=== PATIENT | female | born 1975 | race Caucasian/White ===

== ENCOUNTER 2017-01-13 10:03 | Emergency (ER) | payer MEDICAID, OTHER ==
[~2017-01-13] VITALS: Wt 50.0 kg
[2017-01-13] MEDS ORDERED: ONDANSETRON (ODT) 4 MG TAB ODT STA (10:21)
[2017-01-13] MEDS ORDERED: IBUPROFEN 600 MG TAB PO ONE (10:30)
[2017-01-13] MEDS ORDERED: ACETAMINOPHEN 325 MG TAB PO ONE (10:30)
--- NOTE | 2017-01-13 10:56 | ERD ---
ER Documentation Chief Complaint Date/Time DATE: 01/13/17 TIME: 10:29 Chief Complaint FEVER X 4 DAYS HPI 41-year-old Welsh-speaking female presents to emergency department with 2 day history of fever, chills, nausea, vomiting. Patient reports that she vomited 2 times yesterday, and 2 times this morning. Reports she is able to eat and drink without deficit but in smaller amounts. Patient denies diarrhea but reports loose stool. Denies cough, nasal congestion, runny nose, sore throat, or abdominal pain. Patient states she has taken Tylenol for symptomatic relief 2 days ago with little relief of symptoms. Patient is brought in by family member who is available for translation. Hospital staff production maintenance mechanic also provided. ROS All systems reviewed and are negative except as per history of present illness. Medications Home Meds Active Scripts Acetaminophen* (Tylenol*) 325 Mg Tablet, 2 TAB PO Q6 Y for PAIN AND OR ELEVATED TEMP, #20 TAB Prov:EDILBERTO,ROSA 01/13/17 Ondansetron (Ondansetron Odt) 4 Mg Tab.rapdis, 4 MG PO Q6H Y for NAUSEA AND/OR VOMITING, #10 TAB Prov:EDILBERTO,ROSA 01/13/17 Allergies Allergies: Coded Allergies: ibuprofen (Verified Allergy, Intermediate, rash, 01/13/17) Physical Exam Vitals Vital Signs Date Time Temp Pulse Resp B/P Pulse Ox O2 Delivery O2 Flow Rate FiO2 01/13/17 14:19 97.9 98 18 92/50 100 Room Air 01/13/17 10:05 104.0 119 18 101/51 99 Vitals stable, triage notes reviewed, temperature 104 Tylenol and Motrin provided Physical Exam Const: Well-appearing, afebrile, no acute distress Head: Atraumatic Eyes: Normal Conjunctiva, PERRLA, EOMI ENT: Tympanic membranes pink, nonbulging, auditory canals are clear, nasal mucosa dry, pharynx pink, tongue midline, uvula midline no shift, rises and falls with pronation Neck: Full range of motion..~ No meningismus. No cervical chain node Resp: Clear to auscultation bilaterally, diminished bases Cardio: Regular rate and rhythm, no murmurs Abd: Soft, non tender, non distended. No Sommer sign, psoas sign, no McBurney's point tenderness Skin: No petechiae or rashes Back: Ext: Neur: Awake and alert Psych: Normal Mood and Affect Result Diagram: 01/13/17 1100 01/13/17 1300 Results 24 hrs Laboratory Tests Test 01/13/17 11:00 01/13/17 11:33 01/13/17 13:00 White Blood Count 30.610^3/ul Red Blood Count 4.3310^6/ul Hemoglobin 12.0g/dl Hematocrit 34.8% Mean Corpuscular Volume 80.4fl Mean Corpuscular Hemoglobin 27.7pg Mean Corpuscular Hemoglobin Concent 34.5g/dl Red Cell Distribution Width 14.0% Platelet Count 40122^3/UL Mean Platelet Volume 9.9fl Neutrophils % 88.9% Lymphocytes % 2.6% Monocytes % 4.9% Eosinophils % 0.0% Basophils % 0.4% Nucleated Red Blood Cells % 0.0/100WBC Neutrophils # 27.210^3/ul Lymphocytes # 0.810^3/ul Monocytes # 1.510^3/ul Eosinophils # 0.010^3/ul Basophils # 0.110^3/ul Nucleated Red Blood Cells # 0.010^3/ul Bedside Urine pH (LAB) 5.0 Bedside Urine Protein (LAB) 3+ Bedside Urine Glucose (UA) 0.50% Bedside Urine Ketones (LAB) Negative Bedside Urine Blood 3+ Bedside Urine Nitrite (LAB) Negative Bedside Urine Leukocyte Esterase (L Negative Prothrombin Time 16.6Sec Prothrombin Time Ratio 1.3 INR International Normalized Ratio 1.33 Activated Partial Thromboplast Time 40.5Sec Sodium Level 135mmol/L Potassium Level 2.8mmol/L Chloride Level 100mmol/L Carbon Dioxide Level 20mmol/L Anion Gap 18 Blood Urea Nitrogen 12mg/dl Creatinine 0.92mg/dl Glucose Level 185mg/dl Lactic Acid Level 1.2mmol/L Calcium Level 8.7mg/dl Total Bilirubin 0.7mg/dl Direct Bilirubin 0.00mg/dl Indirect Bilirubin 0.7mg/dl Aspartate Amino Transf (AST/SGOT) 96IU/L Alanine Aminotransferase (ALT/SGPT) 100IU/L Alkaline Phosphatase 183IU/L Total Protein 8.3g/dl Albumin 4.5g/dl Globulin 3.80g/dl Albumin/Globulin Ratio 1.18 Lipase 57U/L Current Medications Medications (Trade) Dose Ordered Sig/Ally Route PRN Reason Start Time Stop Time Status Last Admin Dose Admin Ondansetron HCl (Zofran Odt) 4 mg ONCE STAT ODT 01/13/17 10:21 01/13/17 10:23 DC 01/13/17 10:34 Acetaminophen (Tylenol Tab) 650 mg ONCE ONCE PO 01/13/17 10:30 01/13/17 10:31 DC 01/13/17 10:34 Ibuprofen 600 mg 600 mg ONCE ONCE PO 01/13/17 10:30 01/13/17 11:38 DC Sodium Chloride (NS) 1,000 ml @ 1,000 mls/hr Q1H ONCE IV 01/13/17 11:00 01/13/17 11:59 DC 01/13/17 11:45 Potassium Chloride 40 meq 40 meq ONCE STAT PO 01/13/17 13:40 01/13/17 13:46 DC 01/13/17 13:55 Sodium Chloride (NS) 1,000 ml @ 1,000 mls/hr Q1H ONCE IV 01/13/17 14:00 01/13/17 14:59 DC 01/13/17 13:57 Interpretation text CBC shows leukocytosis without a left shift. Anemia Chemistry shows no evidence renal insufficiency, hypokalemia noted at 2.8. This will be treated with 40 any cues of K-Dur Liver function tests shows no evidence of acute biliary or hepatic dysfunction, although ALT and AST is mildly elevated Coagulation study showed no concerning coagulpathy Lipase shows no evidence of acute pancreatitis- Lactic acid 1.2 this is a non-acute level. Sepsis is not suspected second lactate will not be drawn Urinalysis shows hematuria without leukocytosis or nitrates. Proteinuria positive which is not an v suspected finding based on symptoms and hematuria. Procedures/MDM PROCEDURE: XR Chest. CLINICAL INDICATION: Fever TECHNIQUE: PA and lateral views of the chest were obtained COMPARISON: None FINDINGS: The heart and mediastinum are within normal limits. The pulmonary vasculature are unremarkable. The aorta is unremarkable. There is no lung consolidation, pleural effusion or pneumothorax. There is no acute osseous abnormality. IMPRESSION: No acute disease. Electronically viewed and signed by .Jakob Chong MD, MD on 01/13/2017 11:34 This pleasant 41-year-old female brought into emergency department by her friend for fever 2 days, chills, nausea vomiting and loose stools. Patient has temperature of 104, Tylenol, Motrin given. Sepsis considered, treatment includes 2000 mL normal saline. Fever control, laboratory testing including lactic acid and blood cultures. WBC is elevated at 30.6, lactic acid 1.2. These findings do not support sepsis. Pneumonia considered without physical exam findings a chest x-ray is obtained with findings that the heart and mediastinum are within normal limits. Pulmonary vasculature are unremarkable. The aorta is unremarkable. There is no lung consolidation, pleural effusion, or pneumothorax. There is no acute osseous abnormality. This is a normal chest x-ray. Patient's abdomen is nondiagnostic on exam, abnormal ALT, AST, pancreatitis, cholecystitis, appendicitis, considered but unlikely without typical signs such as epigastric and right upper quadrant tenderness, patient reports nausea, vomiting with frequent loose stools for the last 2 days, viral illness, dehydration considered, chemistry abnormal with potassium of 2.8 possibly related to f fluid loss secondary to vomiting and loose stooling. Patient treated with Zofran, Tylenol for fever of 100.4. Patient was reassessed after interventions reports improvement of symptoms. Patient is afebrile at 98.8. Plan to discharge patient with Zofran, diet restrictions, clear liquids advance as tolerated, incorporate potassium rich foods including bananas. [place] juice if not nauseated. Gatorade. Fever reduction with Tylenol every 6 hours as needed. Close follow-up with primary care physician in 48 hours or return to emergency department for worsening including fever not responding to treatment. Vomiting, diarrhea continuing with treatment. Dizziness, abdominal pain, dysuria, hematuria, or blood in stool. I feel the patient is stable for discharge at this time with close outpatient follow-up and strict return to emergency department precautions. I have discussed results, examination findings, the treatment plan with the patient and family present prior to discharge. Indications for emergent reevaluation, side effects of medication were also discussed. All questions were answered. Patient verbalizes understanding and agrees with plan of care. Case discussed with supervising physician Dr. Jes Alex Diagnosis: Primary Impression: Leukocytosis, unspecified Additional Impressions: Fever chills Influenza-like symptoms Condition: Good Patient Instructions: Fever Control (Adult), Nausea and Vomiting-Adult, Self- Care for Vomiting and Diarrhea [facility] Additional Instructions: Thank you for for coming to [facility] for your care today. Please ask your nurse or provider if you have questions about your care today and do not leave until all your questions have been answered. Please use any medications given as directed and follow-up with your doctor (or the doctor you were referred to) in the next 2-3 days. If you do not have a primary care doctor you may follow up at the [facility] (listed below). You may also use motrin and tylenol as needed for fever and/or pain unless instructed otherwise by your provider or nurse. Indications for more urgent follow-up have been discussed, but you may return to the Emergency Department at ANY time for any worrisome or worsening symptoms. If you have abdominal pain, please know that no test or exam you received is perfect and you should follow up within 8 hours for continued pain. If you had any imaging studies today, such as an X-Ray or CT Scan, these studies will be reviewed later by a radiologist. You will be called if there are important findings that were not identified today, so make sure the contact information you provided at registration is correct. If you received any narcotic pain control medicine today, such as Vicodin, Morphine or Dilaudid, your coordination and judgment may be affected for a number of hours. Please do not drive or operate heavy machinery, and you may want someone to assist you at home. If you were given a prescription for narcotic medication, be aware that it is very addictive- use sparingly and only if necessary. ROSA CASANOVA Jan 13, 2017 10:39
[2017-01-13] MEDS ORDERED: SOD CHLORIDE 0.9% 1,000 ML IV ONE ×2 (11:00→14:00)
[2017-01-13 11:19] LABS: ADD SCAN DIFF NO
[2017-01-13 11:22] LABS: ABNORMAL IP MESSAGE 1; BASOPHIL # 0.1 10^3/ul (0.0-0.1); BASOPHILS % 0.4 % (0.0-2.0); HEMATOCRIT 34.8 % (37.0-47.0); LYMPHOCYTES # 0.8 10^3/ul (0.8-2.9); LYMPHOCYTES % 2.6 % (15.0-51.0); MEAN CORPUSCULAR HEMOGLOBIN 27.7 pg (29.0-33.0); MEAN CORPUSCULAR HGB CONC 34.5 g/dl (32.0-37.0); MEAN CORPUSCULAR VOLUME 80.4 fl (82.0-101.0); MEAN PLATELET VOLUME 9.9 fl (7.4-10.4); MONOCYTE # 1.5 10^3/ul (0.3-0.9); MONOCYTES % 4.9 % (0.0-11.0); NEUTROPHIL # 27.2 10^3/ul (1.6-7.5); NEUTROPHILS % 88.9 % (39.0-77.0); PLATELET COUNT 269 10^3/UL (140-415); RED BLOOD COUNT 4.33 10^6/ul (4.20-5.40); WHITE BLOOD COUNT 30.6 10^3/ul (4.8-10.8)
[2017-01-13 11:30] LABS: URINE BLOOD (Dip) POC 3+ (NEGATIVE)
--- NOTE | 2017-01-13 11:34 | RADRPT ---
PROCEDURE: XR Chest. CLINICAL INDICATION: Fever TECHNIQUE: PA and lateral views of the chest were obtained COMPARISON: None FINDINGS: The heart and mediastinum are within normal limits. The pulmonary vasculature are unremarkable. The aorta is unremarkable. There is no lung consolidation, pleural effusion or pneumothorax. There is no acute osseous abnormality. IMPRESSION: No acute disease. RPTAT: AA .Jakob Chong MD, Date Time Electronically viewed and signed by .Jakob Chong MD, MD on 01/13/2017 11:34 .J/
[2017-01-13 13:21] LABS: INR 1.33; PARTIAL THROMBOPLASTIN TIME 40.5 Sec (25.0-35.0); PROTIME 16.6 Sec (12.2-14.2); PT RATIO 1.3
[2017-01-13 13:22] LABS: ALBUMIN 4.5 g/dl (3.3-4.9); ALBUMIN/GLOBULIN RATIO 1.18; BILIRUBIN,INDIRECT 0.7 mg/dl (0-1.1); BILIRUBIN,TOTAL 0.7 mg/dl (0.2-1.3); CALCIUM 8.7 mg/dl (8.4-10.2); CREATININE 0.92 mg/dl (0.44-1.00); TOTAL PROTEIN 8.3 g/dl (6.1-8.1)
[2017-01-13 13:27] LABS: POTASSIUM 2.8 mmol/L (3.5-5.1)
[2017-01-13] MEDS ORDERED: POTASSIUM CHLORIDE (SR) 20 MEQ TAB PO STA (13:40)
--- NOTE | 2017-01-13 14:07 | QN ---
Documentation Comment I have seen and evaluated the patient along with the PA and/or FORGING MACHINE OPERATOR provider. I agree with the evaluation and plan of care. Please see their documentation for full ER course and evaluation. In short: A 41-year-old female presents with several days of nausea and vomiting, myalgias and generalized malaise with lightheadedness. She states that occasional loose stools but no significant abdominal pain. No chest pain or shortness of breath no cough no dysuria urgency or frequency. No recent travel or sick contacts or antibiotics. On exam: General: Well developed, well nourished, no acute distress Head: Normocephalic, atraumatic Eyes: Pupils equally reactive, EOM intact ENT: Moist mucous membranes Neck: Supple, no lymphadenopathy Respiratory: Lungs clear bilaterally, no distress Cardiovascular: RRR, no murmurs, rubs, or gallops Abdominal: Soft, non-tender, non-distended, no peritoneal signs : Deferred MSK: No edema, no unilateral swelling, 5/5 strength Neurologic: Alert and oriented, moving all extremities, normal speech, no focal weakness, no cerebellar signs, no meningismus Skin: No rash Psych: Normal mood Assessment and plan: The patient's laboratory testing is somewhat concerning with a significant leukocytosis of 30. However, she has a normal lactic acid. She has had some vomiting and her potassium is slightly low and will be orally repleted. She is nonspecific transaminitis. Despite the patient's leukocytosis she is extremely well-appearing, she feels much better after antipyretics and fluids. Her lactic acid is normal. She has a benign abdominal exam. She has no signs or symptoms concerning for intracranial process, pneumonia, UTI, intra-abdominal process. She has no evidence of hepatobiliary obstruction, acute cholecystitis. I believe that her symptoms are most likely consistent with viral process. Even with the patient' s significant leukocytosis she is extremely well-appearing and motivated to go home. She does not have a primary care physician therefore I did strongly recommend that she follows up in the emergency room for repeat evaluation in 1- 2 days. Blood cultures have been sent but again very low clinical concern for bacteremia or sepsis. She has no focal source and likely viral process. The patient has been observed in the emergency room for a period of time during which she has improved symptomatology and normalization of her vital signs. The patient understands strict return precautions but I do believe she is safe for discharge. KARINA CERNA MD Jan 13, 2017 14:07
[2017-01-13 14:19] VITALS: BP 92/50; PULSE 98; RESP 18; TEMP 97.9
[2017-01-13] MEDS ORDERED: ONDA4TAB14 PO (14:37)
[2017-01-13] MEDS ORDERED: ACET325T33 PO (14:38)
== END 2017-01-13 15:14 | disposition home or self-care (01) ==
LOC: FTE 10:03
DX: D72.829 Elevated white blood cell count, unspecified (principal); R11.2 Nausea with vomiting, unspecified
CPT/HCPCS: 71020; 80053; 81003; 83605; 83690; 85025; 85610; 85730; 87040; J7030; Z7610; 36415; 96360; 96361

== ENCOUNTER 2017-01-16 20:59 | Inpatient (IN) | payer MEDICAID ==
[~2017-01-16] VITALS: Ht 152.4 cm; Wt 58.9 kg
[~2017-01-16 20:59] MED LIST: ACET325T33 PO; ONDA4TAB14 PO
[2017-01-16] MEDS ORDERED: ACETAMINOPHEN 325 MG TAB PO STA (21:44)
[2017-01-16] MEDS ORDERED: SODIUM CHLORIDE 0.9% 1L BAG IV* STA (21:44)
[2017-01-16 22:34] LABS: ADD SCAN DIFF NO
[2017-01-16 22:38] LABS: ABNORMAL IP MESSAGE 1; HEMATOCRIT 32.7 % (37.0-47.0); HEMOGLOBIN 11.3 g/dl (12.0-16.0); MEAN CORPUSCULAR HEMOGLOBIN 27.5 pg (29.0-33.0); MEAN CORPUSCULAR HGB CONC 34.6 g/dl (32.0-37.0); MEAN CORPUSCULAR VOLUME 79.6 fl (82.0-101.0); MEAN PLATELET VOLUME 11.4 fl (7.4-10.4); PLATELET COUNT 103 10^3/UL (140-415); RED BLOOD COUNT 4.11 10^6/ul (4.20-5.40); RED CELL DISTRIBUTION WIDTH 15.8 % (11.5-14.5); WHITE BLOOD COUNT 6.1 10^3/ul (4.8-10.8)
[2017-01-16 22:57] LABS: LYMPHOCYTES # 0.7 10^3/ul (0.8-2.9); MONOCYTE # 0.2 10^3/ul (0.3-0.9); NEUTROPHIL # 4.9 10^3/ul (1.6-7.5)
[2017-01-16 23:00] LABS: INR 1.16; PROTIME 14.8 Sec (12.2-14.2); PT RATIO 1.2
[2017-01-16 23:01] LABS: PARTIAL THROMBOPLASTIN TIME 40.1 Sec (25.0-35.0)
[2017-01-16 23:02] LABS: ALANINE AMINOTRANSFERASE 100 IU/L (13-69); ALBUMIN 3.5 g/dl (3.3-4.9); ALBUMIN/GLOBULIN RATIO 1.09; ALKALINE PHOSPHATASE 359 IU/L (42-121); ANION GAP 19 (8-16); ASPARTATE AMINO TRANSFERASE 128 IU/L (15-46); BILIRUBIN,INDIRECT 0.4 mg/dl (0-1.1); BILIRUBIN,TOTAL 0.4 mg/dl (0.2-1.3); BLOOD UREA NITROGEN 25 mg/dl (7-20); CALCIUM 8.2 mg/dl (8.4-10.2); CARBON DIOXIDE 16 mmol/L (21-31); CHLORIDE 104 mmol/L (97-110); CREATININE 1.11 mg/dl (0.44-1.00); GLUCOSE 125 mg/dl (70-220); SODIUM 136 mmol/L (135-144); TOTAL PROTEIN 6.7 g/dl (6.1-8.1)
[2017-01-16] MEDS ORDERED: CEFEPIME 2GM/50 ML (PMX) 50 ML IVPB STA (23:08)
[2017-01-16 23:17] LABS: TROPONIN-I < 0.012 ng/ml (0.00-0.12)
[2017-01-16] MEDS ORDERED: VANCOMYCIN 1 GM (PMX) 250 ML IVPB ONE (23:30)
--- NOTE | 2017-01-16 23:39 | RADRPT ---
PROCEDURE: XR Chest. CLINICAL INDICATION: Chest pain. Possible sepsis TECHNIQUE: Portable AP upright view of the chest was obtained. COMPARISON: 01/13/2017 FINDINGS: The cardiomediastinal silhouette is within normal limits. The lungs are clear. There is no evidenc e for pleural effusion, pneumothorax or pulmonary vascular congestion. The osseous structures are i ntact with no evidence for acute abnormality. RPTAT:HJJR IMPRESSION: No evidence for acute intrathoracic pathology or interval change from 01/13/2017 allowing for techni rishabh differences. Physician Maci Date Time Electronically viewed and signed by Physician Maci on 01/16/2017 23:38 JR/
[2017-01-17] VITALS (21 sets, daily range): BP systolic 90–122; BP diastolic 54–88; PULSE 94–113; RESP 18–42; TEMP 97; Ht 152.4 cm; Wt 58.9 kg
[2017-01-17] MEDS ORDERED: NACL 0.9% 3 ML SYG IV SCH (00:30)
[2017-01-17] MEDS ORDERED: POTASSIUM CHLORIDE 250 ML IVPB ONE (00:30)
[2017-01-17] MEDS ORDERED: VANCOMYCIN IV PER PHARMACY XX SCH (00:30)
[2017-01-17] MEDS: NS + KCL 20 MEQ 1,000 ML IV SCH ×4 (00:53→21:47)
[2017-01-17] MEDS: PIPER-TAZO 3.375 GM IV (PMX) 100 ML IVPB SCH ×5 (00:54→23:31)
--- NOTE | 2017-01-17 01:00 | RADRPT ---
PROCEDURE: US right upper quadrant CLINICAL INDICATION: Abdominal pain. Abnormal laboratory values. TECHNIQUE: Multiple real-time images were acquired of the patient's right upper abdomen utilizing a high resolution transducer. COMPARISON: None available FINDINGS: Liver: Irregularly marginated centrally anechoic and peripherally hyperechoic lesion within the rig ht hepatic lobe is estimated at 3.3 x 4.1 x 3.3 cm. There is no evidence of solid mass or ductal di latation. Normal directional blood flow seen within the patent main portal vein. The liver is norm al in size. The maximum dimension estimated at 19.2 cm . Gallbladder: Anechoic with no evidence of gallstones or sludge. There is no evidence of gallbladder wall thickening or pericholecystic fluid. No sonographic Sommer's sign is reported. Common bile duct: Normal; 4.2 mm. There is no evidence for choledocholithiasis. Right Kidney: Normal; maximum length measured at approximately 10.1 cm. Pancreas: Visualized portions are normal. The tail is partially obscured by bowel gas. RPTAT:HJJR IMPRESSION: 1. Irregularly marginated centrally anechoic lesion within the right hepatic lobe measuring 4.1 cm in greatest dimension raises concern for a complex cyst or possibly an intrahepatic abscess in the formerly [facility] clinical setting. Follow-up evaluation is recommended. 2. No evidence of cholelithiasis. Physician Maci Date Time Electronically viewed and signed by Physician Maci on 01/17/2017 00:59 /
--- NOTE | 2017-01-17 01:32 | HP ---
DATE OF ADMISSION: 01/16/2017 TIME: 11:15 p.m. CHIEF COMPLAINT: Weakness, shortness of breath. HISTORY OF PRESENT ILLNESS: The patient is a 41-year-old female with no significant medical history . The patient presents with 1 week of worsening weakness, fevers, chills. The patient presented to the ED 3 days ago, where she was diagnosed with a viral syndrome. Blood cultures were taken. The patient was told follow up in the ER in a few days if she continued to feel poorly. The patient ind eed did follow up, and patient's blood cultures also showed alpha-hemolytic strep. The patient denie s any cellulitis throughout her body. She denies any dysuria or urinary frequency. She denies any productive cough. The patient does state that she does have some mild abdominal pain. She does hav e some nausea with occasional emesis. The patient denies any significant diarrhea. She says on occ asion she has some loose stool but nothing significant. The patient has never had these symptoms be fore in the past, and she has been otherwise healthy. In the ED, the patient's lactic acid was note d to be elevated at 8.1. She was tachycardic, and her BP was on lower side. The patient denied any chest pain, denied any headaches, and her main issue was her weakness with nausea, vomiting and fev ers and chills. PAST MEDICAL HISTORY: Negative. PAST SURGICAL HISTORY: Negative. HOME MEDICATIONS: None. ALLERGIES: IBUPROFEN. FAMILY HISTORY: Negative. SOCIAL HISTORY: Denies any alcohol, tobacco or drugs. She is currently a student in school. REVIEW OF SYSTEMS: A 12-point review of systems is negative except as in HPI. PHYSICAL EXAMINATION: VITAL SIGNS: Temperature is currently 102.6, T-max 104.7. Heart rate is 133, respiratory rate is 2 6, BP is 93/56, saturation 96% on room air. GENERAL: Mild distress. Alert, oriented. HEENT: Normocephalic, atraumatic. CHEST: Clear to auscultation. CARDIOVASCULAR: Tachycardic. ABDOMEN: Mild tenderness to palpation, nondistended, soft. EXTREMITIES: No clubbing, cyanosis, edema. LABORATORY: White count is 6.1, a few days ago was 30.6. Hemoglobin is 11.3, hematocrit is 32.7, p latelets 103. Chemistry: Sodium is 136, potassium is 3.0, carbon dioxide 16, anion gap is 19, BUN 25, creatinine is 1.11, glucose 125. Lactic acid 8.1. LFTs are elevated with AST 128, ALT is 100, alkaline phosphatase 359. Troponin is negative. Lipase a few days ago was 57. INR is 1.16. UA a few days ago was negative for leukocyte esterase, negative for nitrites. DIAGNOSTICS: Chest x-ray shows evidence for acute intrathoracic pathology. ASSESSMENT AND PLAN: 1. Septic shock. The patient does meet criteria for both sepsis and shock. The patient's blood pr essure is on lower side. Central line will be placed in the ED, and the patient will be transferred to ICU ____ sepsis secondary to alpha-hemolytic strep. Source is unclear at this time. The patien t has no cellulitis, no signs of pneumonia but does admit having sinus symptoms for the past week. Of note, the patient's white count was elevated at 30.6 only a few days ago and now has normalized, concerning for bone marrow suppression. Her lactic acid is severely elevated. The patient does denton ear to be critically ill at this time. Of note, she has no medical history. Will check a C. diff. Will do a CT abdomen and pelvis to identify a possible source of infection and to evaluate for C. d iff. Will put the patient on broad-spectrum antibiotics at this time. Will get an ID consultation as well as a pulmonology consultation. 2. Acute kidney injury secondary to septic shock. Will treat with IV fluids. Will get nephrology consultation. 3. Hypokalemia. Will replete. 4. Transaminitis. Source is unclear at this time. Will check a hepatitis panel, get a CT abdomen and pelvis. The patient may have possible cholangitis and will evaluate with ultrasound of the abdo men as well. No etiologies for this degree of sepsis, could be severe gangrenous cholecystitis. On ce again, will evaluate with ultrasound of the abdomen. 5. Thrombocytopenia. Is mild, likely secondary to disseminated intravascular coagulation. 6. Anion gap metabolic acidosis secondary to lactic acidosis from septic shock. 7. Prophylaxis: SCDs. Dictated By: ZAYRA WATT MD BS/NTS Conf#: [id number] DID#: [id number]
--- NOTE | 2017-01-17 02:25 | RADRPT ---
PROCEDURE: CT of the abdomen and pelvis without contrast CLINICAL INDICATION: Cholangitis/cholecystitis. TECHNIQUE: Spiral CT images through the abdomen and pelvis without the use of contrast. The admin istered radiation dose is CTDI 7.1 and DLP 400.59. One or more of the following dose reduction tech niques were used: automated exposure control, adjustment of the mA and/or kV according to patient si ze, or use of iterative reconstruction technique. COMPARISON: None FINDINGS: Lack of oral and intravenous contrast somewhat limits evaluation. Bibasilar atelectasis is seen. Small pleural effusions. Moderately large hiatal hernia.. Evaluation of the liver is limited without intravenous contrast there are at least 2 large heterogen eous low attenuation areas within the posterior segment of the right lobe of the liver. The larger measures 7.4 x 8.9 cm and the smaller measures approximately 4.5 x 5.8 cm. These are suspicious for hepatic abscesses given the history of cholecystitis. The gallbladder is contracted but there may be slight gallbladder wall thickening. No biliary or pancreatic ductal dilatation is seen. Noncont rast images of the spleen, adrenals, kidneys, and pancreas is unremarkable. . There is no evidence for bowel obstruction, free air, or abscess. The appendix is normal in appearance. There is colon ic diverticulosis without evidence of diverticulitis. The bladder, uterus, and adnexal regions are u nremarkable. There is a small of free fluid in the pelvis. There is mild degenerative change of t he spine. IMPRESSION: At least 2 probable large hepatic abscesses given the clinical history. Repeat study with intravenou s contrast would be helpful in better defining the abnormalities. The CT appearance is not specific for abscess and metastatic disease or other neoplastic etiology is not excluded. Small amount of free fluid in the pelvis. Hiatal hernia. RPTAT: HLBE Physician Ami Date Time Electronically viewed and signed by Physician Ami on 01/17/2017 02:25 CANDICE/
[2017-01-17 02:43] LABS: URINE BLOOD (Dip) POC 3+ (NEGATIVE)
[2017-01-17 03:17] LABS: ADD UMIC YES
[2017-01-17 03:19] LABS: UR CLARITY CLOUDY (CLEAR); UR COLOR YELLOW (YELLOW)
[2017-01-17 03:20] LABS: UR BILIRUBIN (Dip) 1+ (NEGATIVE); UR BLOOD (Dip) 3+ (NEGATIVE); UR GLUCOSE (Dip) NEGATIVE (NEGATIVE); UR KETONES (Dip) NEGATIVE (NEGATIVE); UR LEUKOCYTE ESTERASE (Dip) NEGATIVE (NEGATIVE); UR NITRITE (Dip) NEGATIVE (NEGATIVE); UR TOTAL PROTEIN (Dip) 1+ (NEGATIVE); UR UROBILINOGEN (Dip) 0.2 E.U./dL (0.1-1.0)
[2017-01-17 03:21] LABS: ICTOTEST NEGATIVE (NEGATIVE)
[2017-01-17 03:25] LABS: UR AMORPHOUS CRYSTAL FEW /HPF (NONE SEEN); UR BACTERIA FEW /HPF (NONE SEEN); UR SQUAMOUS EPITHELIAL CELL OCCASIONAL /HPF (FEW); URINE RBCS 0-2 /HPF (0)
[2017-01-17] MEDS: ONDANSETRON 4 MG INJ IV PRN ×2 (04:26→14:39)
[2017-01-17] MEDS: morphine 2 MG INJ IV PRN (04:26)
[2017-01-17] MEDS ORDERED: SOD CHLORIDE 0.9% 1,000 ML IV ONE ×3 (05:00→18:30)
[2017-01-17] MEDS: PANTOPRAZOLE 40 MG INJ IV SCH (05:16)
[2017-01-17] MEDS: morphine 4 MG/ML VIAL IV PRN ×3 (05:17→20:23)
[2017-01-17 06:19] LABS: ADD SCAN DIFF NO; HAAIG REFLEX REFLEX FILED
[2017-01-17 06:28] LABS: ABNORMAL IP MESSAGE 1; HEMATOCRIT 25.4 % (37.0-47.0); HEMOGLOBIN 8.6 g/dl (12.0-16.0); MEAN CORPUSCULAR HEMOGLOBIN 27.3 pg (29.0-33.0); MEAN CORPUSCULAR HGB CONC 33.9 g/dl (32.0-37.0); MEAN CORPUSCULAR VOLUME 80.6 fl (82.0-101.0); MEAN PLATELET VOLUME 12.1 fl (7.4-10.4); PLATELET COUNT 89 10^3/UL (140-415); RED BLOOD COUNT 3.15 10^6/ul (4.20-5.40); RED CELL DISTRIBUTION WIDTH 16.1 % (11.5-14.5); WHITE BLOOD COUNT 18.6 10^3/ul (4.8-10.8)
[2017-01-17 07:05] LABS: ALANINE AMINOTRANSFERASE 77 IU/L (13-69); ALBUMIN 2.2 g/dl (3.3-4.9); ALBUMIN/GLOBULIN RATIO 0.84; ALKALINE PHOSPHATASE 186 IU/L (42-121); ANION GAP 10 (8-16); ASPARTATE AMINO TRANSFERASE 87 IU/L (15-46); BILIRUBIN,INDIRECT 0.3 mg/dl (0-1.1); BILIRUBIN,TOTAL 0.3 mg/dl (0.2-1.3); BLOOD UREA NITROGEN 19 mg/dl (7-20); CALCIUM 6.3 mg/dl (8.4-10.2); CARBON DIOXIDE 18 mmol/L (21-31); CHLORIDE 117 mmol/L (97-110); CREATININE 0.78 mg/dl (0.44-1.00); GLUCOSE 111 mg/dl (70-220); HDL CHOLESTEROL 12 mg/dl (34-88); MAGNESIUM 2.1 mg/dl (1.7-2.5); PHOSPHORUS 2.9 mg/dl (2.5-4.9); POTASSIUM 3.6 mmol/L (3.5-5.1); SODIUM 141 mmol/L (135-144); TOTAL PROTEIN 4.8 g/dl (6.1-8.1); TRIGLYCERIDES 208 mg/dl (0-149)
[2017-01-17 07:11] LABS: CHOLESTEROL < 50 mg/dl (100-200)
[2017-01-17 07:55] LABS: HEPATITIS B CORE ANTIBODY NEGATIVE (NEGATIVE)
[2017-01-17] MEDS: metroNIDAZOLE 500 MG/NS (PMX) 100 ML IVPB SCH ×3 (09:41→21:42)
[2017-01-17 10:36] LABS: BURR CELLS 1+; LYMPHOCYTES # 0.7 10^3/ul (0.8-2.9); MONOCYTE # 0.4 10^3/ul (0.3-0.9); NEUTROPHIL # 16.7 10^3/ul (1.6-7.5)
--- NOTE | 2017-01-17 11:08 | CONS ---
DATE OF ADMISSION: 01/16/2017 DATE OF CONSULTATION: 01/17/2017 TYPE OF CONSULTATION: Nephrology. REASON FOR CONSULTATION: Acute kidney injury. PHYSICIAN REQUESTING CONSULT: Cassie Aguilar MD HISTORY OF PRESENT ILLNESS: This is a 41-year-old female with no significant past medical history w alexander presents to [facility] with complaints of weakness, shortness of breath. The p atfaith states that her symptoms started approximately 1 week ago. She said during this time she has noticed weakness, fevers, chills. She presented to the emergency room 3 days ago and at that time was diagnosed with viral syndrome. Cultures were taken and showed alpha hemolytic strep. The patie nt was diagnosed with cellulitis. The patient's symptoms have progressively worsened. As a result, she came back to the emergency room for evaluation. Upon arrival to the emergency room, the patien t had a temperature of 102.6, blood pressure 93/56, respirations 20, pulse was 133. In the emergenc y room, the patient's laboratory data showed a white count of 18,000, hemoglobin 8.6. The patient h ad a BUN 25, creatinine 1.11. Lactic acid 8.1. The patient was given broad-spectrum antibiotics, I V fluids. She had an influenza screen which was noted to be negative. In terms of the patient's renal history, the patient has no prior history of kidney disease. She de nies any recent NSAID use, any diuretic therapy, any contrast exposure. ALLERGIES: IBUPROFEN. PAST MEDICAL HISTORY: None. PAST SURGICAL HISTORY: Negative. HOME MEDICATIONS: None. FAMILY HISTORY: Negative. SOCIAL HISTORY: She does not drink, smoke or do drugs. REVIEW OF SYSTEMS: A 14-point review of systems was conducted. Pertinent positives stated in the H PI, otherwise negative. PHYSICAL EXAMINATION: VITAL SIGNS: Blood pressure is 89/60, respirations 20, pulse 96, temperature 98.4. HEENT: Head is normocephalic. Pupils are reactive to light. NECK: Supple. HEART: Regular rate. LUNGS: Show diminished breath sounds at the bases. ABDOMEN: Soft, nontender to palpation. No rebound or guarding. EXTREMITIES: Negative for clubbing, cyanosis. No edema. DERMATOLOGIC: No rashes. MUSCULOSKELETAL: No joint effusions. NEUROLOGIC: No focal deficits. LABORATORY DATA: Shows white count 18.6, hemoglobin 8.6, hematocrit 25.4, platelet count is 89. So dium is 141, potassium 3.6, chloride 117, BUN 19, creatinine 0.78. IMAGING STUDIES: The patient had a CT scan of the abdomen and pelvis which showed hepatic abscesses , small amount of free fluid in the pelvis, hiatal hernia. Abdominal ultrasound which showed possib le cystic lesion or intrahepatic abscess. ASSESSMENT AND PLAN: This is a 41-year-old female who presents with: 1. Nonoliguric acute kidney injury with a previously unknown baseline creatinine. Etiology appears to be secondary to hemodynamics, septic acute kidney injury. The patient's urinalysis is bland, do es not show any evidence of active sediment. Noted is +1 proteinuria. The patient's renal function has improved with IV hydration. Plan at this point is to continue current treatment plan. Continu e IV fluids, continue IV antibiotics, continue supportive care, renally dose all meds. Maintain MAP above 65. 2. Anemia. The patient had a drop in her hemoglobin, possibly dilutional. We will monitor hemoglo bin and hematocrit levels. 3. Mineral bone disorder. Monitor calcium and phosphorus levels. 4. Sepsis secondary to bacteremia with possible hepatic abscess. The patient is currently on broad -spectrum antibiotics, IV fluids, we will continue. Consider pressor support as needed. We will fo llow up with primary team and infectious disease. 5. Hypokalemia. The patient's potassium chloride will be repleted. 6. Transaminitis. Etiology may be due to intrahepatic lesion. Continue to monitor liver function tests. 7. Thrombocytopenia. We will continue to monitor. 8. Anion gap metabolic acidosis. Etiology secondary to acute kidney injury in conjunction with lac tic acidosis. Continue to observe. Continue to treat underlying sepsis. Thank you, Dr. Aguilar, for this interesting consult. It will be a pleasure to follow the patient w loreto gee throughout the hospital course. Dictated By: WISAM WALLACE/WILTON Conf#: [id number] DID#: [id number]
[2017-01-17] MEDS ORDERED: LIDOCAINE 1% (MDV) 20 ML INJ ONE (11:38)
[2017-01-17] MEDS ORDERED: FENTAnyl 50 MCG/ML VIAL ONE ×2 (11:46→12:59)
[2017-01-17] MEDS ORDERED: MIDAZOLAM 1 MG/ML 2 ML INJ ONE (11:46)
[2017-01-17] MEDS ORDERED: SOD CHLORIDE 0.9% 500 ML ONE (11:46)
--- NOTE | 2017-01-17 12:48 | CONS ---
DATE OF ADMISSION: 01/16/2017 DATE OF CONSULTATION: 01/17/2017 TYPE OF CONSULTATION: Infectious Disease. REASON FOR CONSULTATION: Antibiotic management. HISTORY OF PRESENT ILLNESS: Val Alfonso is a 41-year-old female who comes in with weakne ss and shortness of breath. She has no significant past medical history. She has 1 week of worseni ng weakness, fever and chills. She came to the emergency room 3 days ago with a viral syndrome. Bl ood cultures were done and patient did follow up her blood cultures grew alpha hemolytic strep. She denies cellulitis throughout her body. She denies dysuria or urinary frequency. She has some mild abdominal pain. Denies diarrhea. Her white count is 6.1, a few days ago it was 30.6, H and H of 11.3 and 32.7, platelet count 103,000. Her BUN and creatinine is 25/1.11, lactic acid was 8.1. LFT s are elevated with ASTat 128, ALT 100, alkaline phosphatase 329. Lipase was 57. Urinalysis is ne gative for leukocyte esterase and negative for nitrites. Chest x-ray does not show any acute intrat horacic pathology. PAST MEDICAL HISTORY: Operations as outlined. FAMILY HISTORY: Noncontributory. SOCIAL HISTORY: She does not smoke, drink or abuse drugs. She is a student. ALLERGIES: IBUPROFEN. MEDICATIONS: Per chart. REVIEW OF SYSTEMS: As per HPI. PHYSICAL EXAMINATION: GENERAL: The patient is a well-developed, well-nourished female who is alert, responsive, in no acu te distress. VITAL SIGNS: Stable. T-max 102.6. SKIN: Without generalized rash. HEENT: Within normal limits. NECK: Supple. LYMPH NODES: None palpable. CHEST: Decreased breath sounds at the bases. HEART: Without murmur or gallop. Tachycardic. ABDOMEN: Soft. She has some mild tenderness to palpation. Nondistended, without organosplenomegal y or masses. EXTREMITIES: Without cyanosis, clubbing, or edema. RECTAL AND GENITAL: Deferred. NEUROLOGIC: No focal neurological abnormality. IMPRESSION AND PLAN: Patient has sepsis and hypotension with a blood pressure ____/66, the etiology of which is unclear. We are going to put a central line in. She has no cellulitis, no evidence of pneumonia at this point. Her white count was 30.6 only a few days ago. Her lactic acid is fairly elevated. We have her on vancomycin, Flagyl and Zosyn. We will await the culture reports. I will dictate my findings to the hospitalist and Dr. Rod. Dictated By: ANDRA HERNANDEZ MD, JD/WILTON Conf#: [id number] DID#: [id number]
[2017-01-17] MEDS: VANCOMYCIN 750 MG in SOD CHLORIDE 0.9% 150 ML IVPB SCH (14:45)
--- NOTE | 2017-01-17 17:29 | RADRPT ---
PROCEDURE: CT guided liver abscess drainage. CLINICAL INDICATION: Abdominal pain. Fever. Two liver abscesses. TECHNIQUE: Informed consent was obtained. The procedure, risks, benefits, complications and alternatives were explained to the patient. Risks including bleeding and infection were explained. The patient underst ood and was willing to proceed. A procedural pause was performed. The patient's name, date of , and procedure to be performed were verified. One or more of the following dose reduction techniq ues were used: Automated exposure control, adjustment of the mA and/or kV according to patient size, use of iterative reconstruction technique. Using local anesthetic, sterile technique and CT guidance, a 19-gauge Yueh needle was advanced into the abscess superiorly in the right hepatic lobe. CT scan was performed confirming position. Purul ent fluid was also aspirated confirming position. The needle from the Yueh catheter was removed, le aving the Yueh catheter in place within the fluid collection. A 0.035-inch Amplatz guidewire was ad vanced through the Yueh catheter into the fluid collection. The Yueh catheter was removed. The tra ct was dilated to 10 Citizen [place] and a 810.2 [place] multipurpose drainage catheter was advanced over the guidewire into the abscess collection. The guidewire was removed. Additional scanning was performe d confirming position. The catheter was then sutured to the patient's skin with 2-0 silk. The cath eter was connected to a drainage bag. Using local anesthetic, sterile technique and CT guidance, a 19-gauge Yueh needle was advanced into the abscess in the mid right hepatic lobe laterally. CT scan was performed confirming position. Pu rulent fluid was also aspirated confirming position. The needle from the Yueh catheter was removed, leaving the Yueh catheter in place within the fluid collection. A 0.035-inch Amplatz guidewire was advanced through the Yueh catheter into the fluid collection. The Yueh catheter was removed. The tract was dilated to 10 [place] and a 810.2 [place] multipurpose drainage catheter was advanced over t he guidewire into the abscess collection. The guidewire was removed. Additional scanning was perfo rmed confirming position. The catheter was then sutured to the patient's skin with 2-0 silk. The c atheter was connected to a drainage bag A dressing was applied. The patient tolerated procedure well. COMPARISON: None. FINDINGS: Final images demonstrate the 2 drainage catheter is in satisfactory position within the to right hep atic lobe abscesses. IMPRESSION: 1. Successful CT guided liver abscess drainages. RPTAT: QQ .Josue Jefferson MD, Date Time Electronically viewed and signed by .Josue Jefferson MD, on 01/17/2017 17:28 .R/
--- NOTE | 2017-01-17 19:00 | PN ---
DATE: 01/17/2017 SUBJECTIVE: Patient in the intensive care unit on IV fluids. No acute events overnight. Seen by mavis shafer and infectious disease teams earlier today. OBJECTIVE: VITAL SIGNS: T-max 104.7, presently 98.4, pulse is 93 to 133, respirations 18 to 31, blood pressur e is 118 systolic over 69 to 70 diastolic, saturating at 98% on 2 liters nasal cannula. GENERAL: The patient is lying in bed in mild distress, but alert. HEENT: Pupils equal, round, react to light. Extraocular muscles intact. NECK: Supple, no thyromegaly. LUNGS: Clear to auscultation bilaterally. CARDIOVASCULAR: Tachycardic heart rate. S1, S2 heard. ABDOMEN: Mild tenderness to palpation, otherwise nondistended, soft. No rebound or guarding. MUSCULOSKELETAL: No lower extremity edema bilaterally. NEUROLOGIC: No focal deficits. LABORATORY DATA: WBC 18.6, hemoglobin 8.6, hematocrit 25.4, platelets of 89. Sodium 141, potassium 3.6, chloride 117, CO2 18, BUN of 19, creatinine 0.78, glucose 111. A1c is 6.3. AST is high at 87 , ALT 77, alkaline phosphatase is 196, bilirubins are normal. Triglycerides are 208. Alpha feto-pr otein is normal. Lactic acid is down to 1.7. Abdominal ultrasound showed irregularly marginated ce ntrally anechoic lesion within the right hepatic lobe measuring 4.1 cm in greatest dimension rate ra ises concern for complex cyst or possibly an intrahepatic abscess in the proper clinical setting. N o evidence of any cholelithiasis. The CT abdomen and pelvis did show least 2 probable large hepatic abscesses, given the recent history, a small amount of free fluid in the pelvis and there was a CT- guided liver abscess drainage performed and there was successful CT-guided liver abscess drainages a s well. ASSESSMENT AND PLAN: A 41-year-old female coming in with weakness, shortness of breath with signs o f septic shock, likely secondary to hepatic abscesses, now status post drainage. 1. Septic shock. Continue to monitor complete blood count, including white blood cells and Tylenol p.r.n. pain, fevers. Continue pressor support and intravenous fluids as well. Monitor blood pres sure and vital signs very carefully. Follow up the culture results of the drainage from the hepatic abscesses. Continue broad spectrum antibiotics as well. Follow up recommendation by infectious dis ease consult as well. Follow up Clostridium difficile results as well. 2. Renal insufficiency, again, likely secondary to #1. Continue aggressive intravenous fluid hydr ation. Follow up renal recommendations. 3. Hypokalemia, status post repletion of potassium. No potassium is normal. Continue to monitor f or now. 4. Thrombocytopenia, unclear source. Consider doing DIC panel. There are no signs of any bleeding . Hold off all anticoagulants as well for now and monitor platelet levels. 5. Transaminitis. Liver function tests are slowly trending down, although still elevated. Continu e to monitor for now. 6. Anion gap metabolic acidosis secondary to lactic acidosis from septic shock, improving. CO2 leve ls are improving. Bicarbonate levels are rising. Continue to monitor labs every morning including complete blood count and basic metabolic panel. More importantly lactic acid, is normal now. 7. Gastrointestinal prophylaxis, proton pump inhibitor. 8. Deep venous thrombosis prophylaxis, sequential compression devices for now. Critical care time spent on patient care today: 40 minutes. Dictated By: DEVEN JOHNSTON Conf#: [id number] DID#: [id number]
--- NOTE | 2017-01-17 19:12 | CONS ---
[facility] INITIAL INPATIENT CONSULTATION NOTE DATE OF CONSULTATION: 01/17/2017 PLACE OF SERVICE: [facility] intensive care unit ASSESSMENT AND PLAN: A very pleasant 41-year-old lady with comorbidity of BMI 25.4 and perhaps prediabetes given the elevated hemoglobin A1c, presenting with 2 liver abscesses in the right lobe of the liver, status post percutaneous drainage procedure today and appearing to be slightly improved. Etiology of these abscesses is not quite clear yet. I did not get a sense that there is a significant biliary pathology, but this can certainly be looked at a bit more carefully in the coming next few days. She also does not presents with appendicitis or other obvious source of infection in her system. Currently, the patient seems to be hemodynamically stable and there is certainly no indication for any acute surgical intervention. I explained my rationale behind my reasoning and my recommendations to the patient who appeared to understand and agreed with the plan. 1. Continue intensive care unit observation with strict and careful monitoring of I's and O's. 2. Fluid bolus 1 liter normal saline. 3. Discontinue vancomycin. 4. Discontinue Flagyl. 5. Continue Zosyn. 6. Follow up with cultures and targeted antimicrobial therapy. 7. Start a liquid diet and advance as tolerated. 8. Consider MRCP. 9. Evaluation for diabetes. 10. Possible need for further endoscopic evaluation if other source of infection found. 11. Keep in house. Thank you again for allowing us to participate in the care of this very pleasant lady and I am certain her wonderful family. If there are any questions , please feel free to contact me at [phone]. UPDATED CLINICAL SUMMARY: The patient is a very pleasant 41-year-old lady with comorbidities including BMI 25.4 who presented through the emergency department at [facility] on 01/16/2017 with multiple hepatic abscesses. COMORBIDITIES: 1. BMI 25.4. DATE OF ADMISSION: 01/17/2017 HISTORY OF PRESENT ILLNESS: The patient is a very pleasant 41-year-old lady who has been otherwise healthy, per report, presenting with 1-week history of continued worsening weakness in association with fevers and chills as well as nausea and vomiting. She was evaluated in the emergency department where her admitting white blood cell count was 6.1, but a CT scan of abdomen and pelvis in the band master hours of 01/17/2017 showed at least 2 large hepatic abscesses measuring 7.4 x 8.9 cm and 4.5 x 5.8 cm in the right lobe of the liver distributed along segments 5, 6, 7, and 8 in the middle. The patient was quickly started on intravenous antimicrobials and I was contacted early in the morning and I recommended that we do a percutaneous drainage of these abscesses. The patient was monitored in the ICU setting and she underwent percutaneous placement of [address] Jefferson from interventional radiology earlier this afternoon. During my visit, the patient reported that she was feeling better, but she still had some abdominal discomfort. She does not have significant shortness of breath and no chest pain. No other major complaints. ALLERGIES: IBUPROFEN. HOME MEDICATIONS: Tylenol. SOCIAL HISTORY: The patient is single and does not have any children. She lives with her sisters. She does not report any smoking, drinking, or intravenous drug use. Currently, she is a student. FAMILY HISTORY: There is no mention of major medical, surgical, or oncologic problems in the family. REVIEW OF SYSTEMS: Other than the above-mentioned, there are no other pertinent positives or pertinent negatives in a complete 14-point review of systems. PHYSICAL EXAMINATION: GENERAL: The patient appears to be a very pleasant lady of perhaps mixed descent ([place] or or combination), lying in bed comfortably and in no acute distress. BMI 25.4. VITAL SIGNS: Temperature 98.4, blood pressure 116/64, pulse 111, respiratory rate 31, pulse oximetry 98% on 2 liters of nasal cannula. HEENT: Normocephalic and atraumatic. Extraocular muscles and hearing are grossly intact bilaterally and symmetrically. Sclerae are nonicteric. Oral cavity is clear; oral mucosa appeared to be pink and moist. Dentition: fair. NECK: Supple. There is no lymphadenopathy or JVD. There is no submental, submandibular or supraclavicular lymphadenopathy. CHEST: Rises symmetrically with each breath; patient is breathing comfortably. There are no audible wheezes, rales or rhonchi on the gross exam. HEART: Pulse is regular and palpable on the right wrist. Capillary refill was normal. Carotid pulses are palpable bilaterally and symmetrically in the neck. EXTREMITIES: Lower extremities contain no pitting edema around the ankles bilaterally and symmetrically. ABDOMEN: Soft, nondistended, and minimally tender to palpation, mainly around the drain insertion points. There are no peritoneal signs or guarding and no evidence of organomegaly, caput medusae, engorged subcutaneous veins, or ascites. The drains are putting out purulent fluid without bile hint. SKIN: Appears to be pink and feels warm to touch. NEUROLOGIC: Awake, alert, and follows commands appropriately. LABORATORY DATA: Repeat white blood cell count this morning was 18.6, platelet count 89 down from 103. Electrolytes were normal. CO2 of 18, creatinine 0.78. Hemoglobin A1c 6.3. Lactic acid 1.7. Total bilirubin 0.3, AST 87, ALT 77, alkaline phosphatase 189, albumin 2.2. Alpha fetoprotein less than 0.83. INR 1.16. Urinalysis was negative for nitrite or leukocyte esterase. Hepatitis B, C, and HIV screens were negative. IMAGING: Pertinent images were reviewed above. Note that I personally reviewed all the available and pertinent images and I agree in general with their overall reported findings. Dictated By: RALF HARRIS/WILTON Conf#: [id number] DID#: [id number] CC: ZAYRA WATT MD;*EndCC* MTDD
[2017-01-18] VITALS (18 sets, daily range): BP systolic 96–124; BP diastolic 59–92; PULSE 80–110; RESP 11–32
[2017-01-18] MEDS ORDERED: LEVALBUTEROL (NEB) 0.63 MG/3 ML AMP HHN PRN (01:00)
[2017-01-18] MEDS ORDERED: IPRATROPIUM (NEB) 0.5 MG/2.5 ML AMP HHN PRN (01:00)
[2017-01-18] MEDS: VANCOMYCIN 750 MG in SOD CHLORIDE 0.9% 150 ML IVPB SCH ×3 (02:01→22:03)
[2017-01-18] MEDS: morphine 4 MG/ML VIAL IV PRN ×2 (02:03→19:07)
[2017-01-18] MEDS: NS + KCL 20 MEQ 1,000 ML IV SCH ×2 (02:53→05:12)
[2017-01-18] MEDS: PANTOPRAZOLE 40 MG INJ IV SCH (05:36)
[2017-01-18] MEDS: PIPER-TAZO 3.375 GM IV (PMX) 100 ML IVPB SCH ×3 (05:37→20:15)
[2017-01-18 06:40] LABS: ADD SCAN DIFF NO
[2017-01-18 06:42] LABS: HEMATOCRIT 27.5 % (37.0-47.0); HEMOGLOBIN 9.2 g/dl (12.0-16.0); MEAN CORPUSCULAR HEMOGLOBIN 27.1 pg (29.0-33.0); MEAN CORPUSCULAR HGB CONC 33.5 g/dl (32.0-37.0); MEAN CORPUSCULAR VOLUME 80.9 fl (82.0-101.0); MEAN PLATELET VOLUME 11.6 fl (7.4-10.4); PLATELET COUNT 102 10^3/UL (140-415); RED CELL DISTRIBUTION WIDTH 16.8 % (11.5-14.5); WHITE BLOOD COUNT 17.4 10^3/ul (4.8-10.8)
[2017-01-18 07:05] LABS: CALCIUM 6.7 mg/dl (8.4-10.2); CREATININE 0.59 mg/dl (0.44-1.00); MAGNESIUM 2.1 mg/dl (1.7-2.5); PHOSPHORUS 2.6 mg/dl (2.5-4.9); POTASSIUM 3.2 mmol/L (3.5-5.1)
[2017-01-18] MEDS: metroNIDAZOLE 500 MG/NS (PMX) 100 ML IVPB SCH (08:27)
[2017-01-18] MEDS ORDERED: VANCOMYCIN IV PER PHARMACY XX SCH (10:30)
--- NOTE | 2017-01-18 10:32 | PN ---
Date/Time of Note Date/Time of Note DATE: 01/18/17 TIME: 10:26 Assessment/Plan VTE Prophylaxis VTE Prophylaxis Intervention: SCD's Lines/Catheters IV Catheter Type (from [facility]): Peripheral IV Urinary Cath still in place: No Assessment/Plan Chief Complaint/Hosp Course ASSESSMENT AND PLAN: 41-year-old female coming in with weakness, shortness of breath with signs of septic shock, likely secondary to hepatic abscesses, now status post drainage. 1. Septic shock - likely sec to liver abscesses - s/p drainage. Also + gram + cocci 2/2 bottles - Continue to monitor complete blood count, including white blood cells and Tylenol p.r.n. pain, fevers. - Monitor blood pressure and vital signs very carefully. - Follow up the culture results of the drainage from the hepatic abscesses, and final blood cx results - Continue broad spectrum antibiotics as well, Follow up recommendation by infectious disease consult as well. - Follow up Clostridium difficile results as well. 2. Renal insufficiency, again, likely secondary to #1. Continue aggressive intravenous fluid hydration. Follow up renal recommendations. 3. Hypokalemia, status post repletion of potassium, but still low today - replete, Continue to monitor for now. 4. Thrombocytopenia, unclear source - although trending up. There are no signs of any bleeding. - hold off all anticoagulants as well for now and monitor platelet levels. 5. Transaminitis - Continue to monitor for now. 6. Anion gap metabolic acidosis secondary to lactic acidosis from septic shock - resolved. - Continue to monitor labs every morning including complete blood count and basic metabolic panel. More importantly lactic acid, is normal now. 7. Gastrointestinal prophylaxis, proton pump inhibitor. 8. Deep venous thrombosis prophylaxis, sequential compression devices for now. Critical care time spent today = 45 min. Problems: Subjective 24 Hr Interval Summary Free Text/Dictation Pt had CT guided drainiage yesterday of liver abscesses, drains in place. Has some mild SOB, less abd pain. Exam/Review of Systems Vital Signs Vitals Vital Signs Date Time Temp Pulse Resp B/P Pulse Ox O2 Delivery O2 Flow Rate FiO2 01/18/17 10:00 106 20 121/92 98 Nasal Cannula 2.0 01/18/17 08:00 98.5 01/18/17 00:52 27 Intake and Output 01/17/17 01/17/17 01/18/17 15:00 23:00 07:00 Intake Total 3240 ml 1750 ml Output Total 190 ml 100 ml Balance 3050 ml 1650 ml Exam GENERAL: The patient is sitting in chair, slightly lethargic, but pleasant and alert HEENT: Pupils equal, round, react to light. Extraocular muscles intact. NECK: Supple, no thyromegaly. LUNGS: Clear to auscultation bilaterally. CARDIOVASCULAR: S1, S2 heard. ABDOMEN: Mild tenderness to palpation, otherwise nondistended, soft. No rebound or guarding. Drains in place MUSCULOSKELETAL: No lower extremity edema bilaterally. NEUROLOGIC: No focal deficits. Results Result Diagram: 01/18/17 0559 01/18/17 0559 Results 24 hrs Laboratory Tests Test 01/18/17 05:59 White Blood Count 17.4 H Red Blood Count 3.40 L Hemoglobin 9.2 L Hematocrit 27.5 L Mean Corpuscular Volume 80.9 L Mean Corpuscular Hemoglobin 27.1 L Mean Corpuscular Hemoglobin Concent 33.5 Red Cell Distribution Width 16.8 H Platelet Count 102 L Mean Platelet Volume 11.6 H Neutrophils % Lymphocytes % Monocytes % Eosinophils % Neutrophils # Lymphocytes # Monocytes # Eosinophils # Sodium Level 140 Potassium Level 3.2 L Chloride Level 116 H Carbon Dioxide Level 18 L Anion Gap 9 Blood Urea Nitrogen 10 # Creatinine 0.59 Glucose Level 99 Calcium Level 6.7 L Phosphorus Level 2.6 Magnesium Level 2.1 Medications Medications Current Medications Potassium Chloride/Sodium Chloride (NS-KCl 20 Meq) 1,000 ml @ 150 mls/hr Q6H40M IV Last administered on 01/18/17 05:12; Admin Dose 150 MLS/HR; Start at 00:13 Ondansetron HCl (Zofran Inj) 4 mg Q6H PRN IV NAUSEA AND/OR VOMITING Last administered on 01/17/17 14:39; Admin Dose 4 MG; Start 01/17/17 at 00:30 Morphine Sulfate (morphine) 2 mg Q4H PRN IV SEVERE PAIN LEVEL 7-10 Last administered on 01/17/17 04:26; Admin Dose 2 MG; Start 01/17/17 at 00:30 Pantoprazole 40 mg 40 mg DAILY@06 IV Last administered on 01/18/17 05:36; Admin Dose 40 MG; Start 01/17/17 at 06:00 Piperacillin Sod/ Tazobactam Sod 100 ml @ 200 mls/hr Q6 IVPB Last administered on 01/18/17 05:37; Admin Dose 200 MLS/HR; Start 01/17/17 at 00:30 Vancomycin HCl/ Sodium Chloride (Vancocin/NS) 150 ml @ 75 mls/hr Q12H IVPB Last administered on 01/18/17 02:01; Admin Dose 75 MLS/HR; Start 01/17/17 at 13 :00 Morphine Sulfate (morphine) 4 mg Q4H PRN IV PAIN LEVEL 7-10 Last administered on 01/18/17 02:03; Admin Dose 4 MG; Start 01/17/17 at 04:30 Miscellaneous Information VANCO TR LEVEL PRIOR... ONCE ONCE XX ; Start at 12:00; Stop 01/18/17 at 12:01 Potassium Chloride (KCl 40 MEQ/250 ML NS) 250 ml @ 62.5 mls/hr ONCE ONCE IVPB ; Start 01/18/17 at 10:30; Stop 01/18/17 at 14:29; Status DEVEN ZAMARRIPA Jan 18, 2017 10:32
--- NOTE | 2017-01-18 10:38 | PN ---
Date/Time of Note Date/Time of Note DATE: 01/18/17 TIME: 10:31 Assessment/Plan Lines/Catheters IV Catheter Type (from Nrs): Peripheral IV Esquivel in Place (from Nrs): No Assessment/Plan Assessment/Plan [facility] Progress Note Date of Service: 01/18/17 Today's Impression & Plan: Overall much improved. No indication for acute surgical intervention. With above assessment, I've recommended the following for today: 1. Ok to transfer out of ICU to med/surg. 2. Saline lock IV. 3. Targeted downstaging of antimicrobials per Dr. Herrmann. 4. Follow up with cultures results and sensitivities. 5. Regular diet. 6. Consider MRCP. 7. Evaluation for diabetes. 8. Possible need for further endoscopic evaluation if other source of infection found and continued search for source of infection. Thank you again for your great care of this very pleasant patient and wonderful family. If there are any questions, please feel free to call me at [phone]. TOTAL VISIT TIME: 20 minutes of which more than half was spent in [id number] discussion with the patient, possibly including family, as well as coordination of care between multiple physicians and providers. Disclaimer: Inadvertent spelling or grammatical errors are likely due to EHR/ dictation software use and do not reflect on the overall quality of patient care. Updated Clinical Summary: The patient is a very pleasant 41-year-old lady with comorbidities including BMI 25.4 who presented through the emergency department at [facility] on 01/16/2017 with multiple hepatic abscesses. COMORBIDITIES: 1. BMI 25.4. 2. Possible prediabetes given the elevated hemoglobin A1c 3. Sepsis with two liver abscesses in the right lobe of the liver, status post percutaneous drainage procedure 01/17/17 at [facility]. Subjective: No major events or complaints; no abd pain and under control with medications; no n/v/d; no sob or cp; + flatus; + BM and normal; + activity Objective: Vitals: See below Exam: GENERAL: On exam, the patient was sitting in a chair and appeared to be comfortable and in no acute distress. ABDOMEN: Soft, nontender and nondistended. Perc hepatic drains both ss without obvious bile. There are no peritoneal signs or guarding. SKIN: Skin appears to be pink and feels warm to touch. NEUROLOGIC: Patient is awake, alert, and follows commands appropriately. Exam/Review of Systems Vital Signs Vitals Vital Signs Date Time Temp Pulse Resp B/P Pulse Ox O2 Delivery O2 Flow Rate FiO2 01/18/17 10:00 106 20 121/92 98 Nasal Cannula 2.0 01/18/17 08:00 98.5 01/18/17 00:52 27 Intake and Output 01/17/17 01/17/17 01/18/17 15:00 23:00 07:00 Intake Total 3240 ml 1750 ml Output Total 190 ml 100 ml Balance 3050 ml 1650 ml Results Result Diagram: 01/18/17 0559 01/18/17 0559 RALF MG M.D. Jan 18, 2017 10:38
[2017-01-18 10:44] LABS: LYMPHOCYTES # 0.9 10^3/ul (0.8-2.9); MONOCYTE # 0.3 10^3/ul (0.3-0.9); NEUTROPHIL # 15.3 10^3/ul (1.6-7.5)
[2017-01-18 10:45] LABS: PLATELET ESTIMATE PLT APPEAR DECREASED; POIKILOCYTOSIS 1+; POLYCHROMASIA 1+
[2017-01-18] MEDS ORDERED: POTASSIUM CHLORIDE 250 ML IVPB ONE (11:00)
--- NOTE | 2017-01-18 11:19 | PN ---
DATE: 01/18/2017 SUBJECTIVE: The patient is critical but stable. Complains of some mild shortness of breath. The p atient is currently off pressor support. No other acute events noted. OBJECTIVE: VITAL SIGNS: Blood pressure is 121/92, respirations 20, pulse 106, temperature 98.5. HEENT: Head is normocephalic. NECK: Supple. HEART: Regular rate. LUNGS: Show diminished breath sounds at the bases. Positive rhonchi. ABDOMEN: Soft, nontender to palpation. No rebound or guarding. EXTREMITIES: Negative for clubbing, cyanosis. No edema. DERMATOLOGIC: No rashes. MUSCULOSKELETAL: No joint effusions. NEUROLOGIC: No change in exam. MEDICATIONS: The patient's medications have been reviewed. LABORATORY DATA: Shows sodium , potassium 3.2, BUN 10, creatinine 0.59. White count 17.4, hem oglobin 9.2, hematocrit 27.5, platelet count is 102. The patient's urinalysis shows FENa less than 1%. ASSESSMENT AND PLAN: 1. Nonoliguric acute kidney injury with unknown baseline creatinine. Etiology is secondary to sept ic acute kidney injury, hemodynamics. The patient's FENa is less than 1% consistent with prerenal e tiology, which can be seen in volume depletion and septic acute kidney injury. The patient's renal function has significantly improved with supportive care, IV fluids, IV antibiotics. At this point, continue current treatment plan, supportive care, renally dose all meds. 2. Hypokalemia, replete potassium chloride. 3. Anemia. Continue to monitor hemoglobin and hematocrit levels. 4. Mineral bone disorder. Continue to monitor calcium and phosphorus levels. 5. Sepsis secondary to bacteremia, hepatic abscess. The patient is status post pigtail placement. Continue antibiotic therapy. Follow up with Dr. Lindsay. Follow up with infectious disease. 6. Transaminitis. Continue to monitor. 7. Thrombocytopenia. Continue to monitor. 8. Non-gap metabolic acidosis, possibly due to IV fluids. We will continue to monitor. Dictated By: WISAM WALLACE/WILTON Conf#: [id number] DID#: [id number]
--- NOTE | 2017-01-18 11:29 | CONS ---
Date/Time of Note Date/Time of Note DATE: 01/18/17 TIME: 11:25 Assessment/Plan Assessment/Plan Additional Assessment/Plan Assessment and recommendations; 1. Patient admitted with abdominal discomfort and nonspecific fatigue discovered to have liver abscess status post percutaneous CT-guided drainage. There has been marked interval improvement in patient's conditions. Continue current treatment. Patient can be transferred to the medical floor. Consultation Date/Type/Reason Admit Date/Time Jan 17, 2017 at 00:20 Date of Consultation: Jan 18, 2017 Type of Consultation: Pulmonary/critical care Reason for Consultation Pulmonary consultation requested for evaluation of sepsis. History of present illness; patient is a pleasant 41-year-old lady who came into the emergency room on the of this month which is yesterday with complaints of not feeling well and abdominal discomfort. Patient underwent multiple imaging studies including chest x-ray which was unremarkable ultrasound abdomen showed possibility of liver abscess patient subsequently underwent CT-guided drainage by interventional radiologist. The patient is now feeling markedly better. She has never been sick before. He denies any medical history whatsoever. Past medical history; unremarkable. Medications; outpatient medications are none. In-hospital medications reviewed. Allergies; ibuprofen. Social history; patient never smoked. Most of alcohol or drug abuse. Family history; noncontributory. Occupation history; noncontributory. Review of systems; denies any headache, chest pain, shortness of breath, coughing. Denies any further fever chills. Denies any abdominal discomfort. Denies any nausea vomiting. Denies any weight loss. Denies any recent travel. Denies any recent diarrhea. General exam; young woman, awake alert currently in no distress. Social History Smoking Status: Never smoker Exam/Review of Systems Vital Signs Vitals Vital Signs Date Time Temp Pulse Resp B/P Pulse Ox O2 Delivery O2 Flow Rate FiO2 01/18/17 11:00 91 24 105/79 98 Nasal Cannula 2.0 01/18/17 08:00 98.5 01/18/17 00:52 27 Intake and Output 01/17/17 01/17/17 01/18/17 15:00 23:00 07:00 Intake Total 3240 ml 1900 ml Output Total 190 ml 100 ml Balance 3050 ml 1800 ml Exam HEENT exam is; supple neck, no JVD. No lymphadenopathy. Midline trachea. No thyromegaly. Pharynx is clear. Patient has fair dentition. Pupils are equal and reactive to light. Chest examination; clear to auscultation. S1-S2 audible, no murmurs. Regular rhythm. Abdomen exam is; soft, there is a drain in the right upper quadrant. Bowel sounds audible. Extremity examination; no peripheral edema. Pulses 1+ bilaterally. 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 Results Result Diagram: 01/18/17 0559 01/18/17 0559 Results 24 hrs Laboratory Tests Test 01/18/17 05:59 White Blood Count 17.4 H Red Blood Count 3.40 L Hemoglobin 9.2 L Hematocrit 27.5 L Mean Corpuscular Volume 80.9 L Mean Corpuscular Hemoglobin 27.1 L Mean Corpuscular Hemoglobin Concent 33.5 Red Cell Distribution Width 16.8 H Platelet Count 102 L Mean Platelet Volume 11.6 H Neutrophils % 88.0 H Band Neutrophils % 5.0 Lymphocytes % 5.0 L Monocytes % 2.0 Eosinophils % Neutrophils # 15.3 H Lymphocytes # 0.9 Monocytes # 0.3 Eosinophils # Platelet Estimate PLT APPEAR DECREASED Polychromasia 1+ Poikilocytosis 1+ Sodium Level 140 Potassium Level 3.2 L Chloride Level 116 H Carbon Dioxide Level 18 L Anion Gap 9 Blood Urea Nitrogen 10 # Creatinine 0.59 Glucose Level 99 Calcium Level 6.7 L Phosphorus Level 2.6 Magnesium Level 2.1 Medications Medications Current Medications Ondansetron HCl (Zofran Inj) 4 mg Q6H PRN IV NAUSEA AND/OR VOMITING Last administered on 01/17/17 14:39; Admin Dose 4 MG; Start 01/17/17 at 00:30 Morphine Sulfate (morphine) 2 mg Q4H PRN IV SEVERE PAIN LEVEL 7-10 Last administered on 01/17/17 04:26; Admin Dose 2 MG; Start 01/17/17 at 00:30 Pantoprazole 40 mg 40 mg DAILY@06 IV Last administered on 01/18/17 05:36; Admin Dose 40 MG; Start 01/17/17 at 06:00 Piperacillin Sod/ Tazobactam Sod 100 ml @ 200 mls/hr Q6 IVPB Last administered on 01/18/17 05:37; Admin Dose 200 MLS/HR; Start 01/17/17 at 00:30 Vancomycin HCl/ Sodium Chloride (Vancocin/NS) 150 ml @ 75 mls/hr Q12H IVPB Last administered on 01/18/17 02:01; Admin Dose 75 MLS/HR; Start 01/17/17 at 13 :00 Morphine Sulfate (morphine) 4 mg Q4H PRN IV PAIN LEVEL 7-10 Last administered on 01/18/17 02:03; Admin Dose 4 MG; Start 01/17/17 at 04:30 Miscellaneous Information VANCO TR LEVEL PRIOR... ONCE ONCE XX ; Start at 12:00; Stop 01/18/17 at 12:01 Potassium Chloride (KCl 40 MEQ/250 ML NS) 250 ml @ 62.5 mls/hr ONCE ONCE IVPB Last administered on 01/18/17 10:54; Admin Dose 62.5 MLS/HR; Start 01/18/17 at 11:00; Stop 01/18/17 at 14:59 TANIA LOMELI Jan 18, 2017 11:29
[2017-01-18 13:17] LABS: MICROALBUMIN 6.9 mg/dL
--- NOTE | 2017-01-18 13:28 | RADRPT ---
Echocardiogram Report Patient Name: ERMIAS LARA Gender: Female Date: 1975 Study Date: 17-Jan-2017 Marine Mammal Trainer: April Matthews [facility] Location: [facility] Ref. Physician: ZAYRA WATT Quality: Good Procedures: Transthoracic echocardiogram with complete 2D, M-Mode, and doppler examination. Indications: evaluate for IE. 2D/M Mode Doppler Measurement Value Normal Ranges Measurement Value Normal Ranges LVIDd 2D 4.4 3.5 - 5.6 cm AV Peak Manolo 1.3 m/sec LVIDs 2D 2.5 2.1 - 4.1 cm AV Peak PG 7.0 mmHg FS 2D 42.8 % LVOT Peak Manolo 1.2 m/sec LVPWd 2D 0.7 0.6 - 1.1 cm LVOT Peak PG 5.0 mmHg IVSd 2D 0.7 0.6 - 1.1 cm MV E Peak Manolo 1.0 m/sec IVS/LVPW 2D 1.0 MV A Peak Manolo 0.8 m/sec AoR Diam 2D 2.3 2.0 - 3.7 cm MV E/A 1.2 LA/Ao 2D 1 0 - 1 MV Decel Time 130 msec EDV 2D 86.4 cm3 MV E/A 1.2 ESV 2D 16.2 cm3 TR Peak Manolo 2.4 m/sec LA Dimen 2D 3.1 2.3 - 4.0 cm TR Peak PG 23.0 mmHg RVSP 31.0 mmHg Findings Left Ventricle: Lower limits of normal systolic function. Normal left ventricular cavity size. Normal left ventricular wall thickness. Ejection fraction is visually estimated at 5055 %. Tissue Doppler/Mitral Doppler indices are within normal limits. Right Ventricle: Normal right ventricular size. Normal right ventricular systolic function. Left Atrium: The left atrium is normal in size. Right Atrium: The right atrium is normal in size. Mitral Valve: Normal appearance and function of the mitral valve with trace physiologic regurgitation. Aortic Valve: Normal appearance of the aortic valve. No significant aortic stenosis or insufficiency. Tricuspid Valve: Normal appearance of the tricuspid valve. Estimated peak PA systolic pressure 31 mmHg. There is mild tricuspid regurgitation. Pulmonic Valve: Normal pulmonic valve appearance. Pericardium: Normal pericardium with no significant pericardial effusion. Aorta: Normal aortic root. IVC: Normal size and normal respiratory collapse consistent with normal right atrial pressure. Conclusions 1.The left ventricle is normal in size with lower limits of normal systolic function. 2.Estimated left ventricular ejection fraction of 50-55%. 3.No vegetations or significant valvular abnormalities noted. Electronically Signed By: Landon Loredo 18-Jan-2017 13:28:27 -0700 Patient Name: ERMIAS LARA Study Date: 17-Jan-2017 [id number]
[2017-01-18] MEDS ORDERED: LIDOCAINE 1% (MPF) 5 ML VIAL SC ONE (13:30)
--- NOTE | 2017-01-18 13:39 | PN ---
DATE: 01/18/2017 INFECTIOUS DISEASE PROGRESS NOTE SUBJECTIVE: No events overnight. The patient is alert, sitting comfortably in bed. She is in no d istress. No fevers. Temperature 98.5, pulse 91, respirations 24, blood pressure 105/79, saturation s 98 on 2 liters. WBC 17.4, H and H 9.2 and 27.5, platelets 102, neutrophils 88, bands 5, lymphs 5, monos 2, BUN 10, creatinine 0.49. MICROBIOLOGY: Blood culture growing gram-positive cocci in pairs and clusters. Urine culture negat emily. Influenza swab negative. Abdominal fluid culture pending. INDWELLINGS: Intra-abdominal drainage catheters. ANTIMICROBIALS: The patient is on IV vancomycin and Zosyn. PHYSICAL EXAMINATION: GENERAL: Well-developed, well-nourished, middle-aged woman who is alert, in no distress. HEENT: Head atraumatic, normocephalic. Sclerae anicteric. Buccal mucosa dry. NECK: Supple. CHEST: Chest rise is symmetrical. Breath sounds clear. HEART: S1, S2. ABDOMEN: Soft. Bowel sounds present. The patient has two intra-abdominal drainage catheters on th e right. EXTREMITIES: Without cyanosis or edema. ASSESSMENT: 1. Sepsis with Gram-positive cocci bacteremia. 2. Two liver abscesses in the right lower lobe of the liver, status post percutaneous drainage proc edure. 3. Acute kidney injury. 4. Anemia. PLAN: The patient remains stable. We are going to repeat blood cultures if it has not been done ye t. Continue her on the current antimicrobials. Await for final cultures. Follow recommendations of the consultants. Dictated By: USHA ALVARES ADVISOR CONSULTANT for ANDRA EVERETT/WILTON Conf#: [id number] DID#: [id number]
--- NOTE | 2017-01-18 14:04 | RADRPT ---
PROCEDURE: Chest Radiograph. CLINICAL INDICATION: Shortness of breath TECHNIQUE: Single frontal chest radiograph. COMPARISON: Chest radiograph 01/13/2017. CT abdomen pelvis 01/17/2017 FINDINGS: The cardiomediastinal silhouette is within normal limits. There is a small right and trace left ple ural effusion with adjacent atelectasis/infiltrate. The upper lung zones are clear . There is no p neumothorax. The bones are intact. To subdiaphragmatic drains are in place. IMPRESSION: 1. Small right and trace left pleural effusions with adjacent atelectasis/infiltrate. RPTAT: KK .Solomon Casillas MD, MD Date Time Electronically viewed and signed by .Solomon Casillas MD, on 01/18/2017 14:03 .B/
[2017-01-18] MEDS: LEVALBUTEROL (NEB) 0.63 MG/3 ML AMP HHN SCH ×2 (14:43→16:03)
[2017-01-18] MEDS: IPRATROPIUM (NEB) 0.5 MG/2.5 ML AMP HHN SCH ×2 (14:45→16:04)
--- NOTE | 2017-01-18 18:25 | RADRPT ---
PROCEDURE: MR Abdomen. CLINICAL INDICATION: Hepatic abscesses TECHNIQUE: Multiplanar multi sequence imaging of the abdomen without contrast. COMPARISON: 01/17/2017 FINDINGS: MRI Abdomen: The study is severely degraded by motion artifact and what is likely metallic hardware artifact. Ri ght lower lobe atelectasis or infiltrate is seen. Minimal bilateral pleural effusions. The 2 lesio ns in the posterior segment of the right lobe of the liver are identified and appear similar in size . The larger measures 6.4 x 6.1 cm and the smaller measures 3.8 x 3.7 cm. The biliary ducts are po ty seen due to artifact. No gross ductal dilatation is seen. Diffuse edema of the subcutaneous s oft tissues is seen. The spleen, adrenals, kidneys, and pancreas are grossly unremarkable. The gal lbladder is grossly unremarkable. IMPRESSION: Study is severely limited by artifact. The 2 masses or abscesses in the liver are heterogeneous in appearance and grossly similar in size to the prior study.. RPTAT: HLBE Physician Ami Date Time Electronically viewed and signed by Physician Ami on 01/18/2017 18:25 LE/
[2017-01-19] MEDS: PIPER-TAZO 3.375 GM IV (PMX) 100 ML IVPB SCH ×5 (00:20→23:55)
[2017-01-19] MEDS: PANTOPRAZOLE 40 MG INJ IV SCH (05:26)
[2017-01-19] MEDS: morphine 4 MG/ML VIAL IV PRN ×2 (05:46→10:11)
[2017-01-19] MEDS: VANCOMYCIN 750 MG in SOD CHLORIDE 0.9% 150 ML IVPB SCH ×2 (06:12→13:53)
[2017-01-19 07:44] VITALS: BP 104/63; RESP 18
[2017-01-19 08:03] LABS: ADD SCAN DIFF NO
[2017-01-19 08:07] LABS: BASOPHILS % 0.1 % (0.0-2.0); EOSINOPHILS # 0.1 10^3/ul (0.0-0.5); EOSINOPHILS % 0.5 % (0.0-7.0); HEMATOCRIT 27.6 % (37.0-47.0); HEMOGLOBIN 9.3 g/dl (12.0-16.0); LYMPHOCYTES # 1.6 10^3/ul (0.8-2.9); LYMPHOCYTES % 12.2 % (15.0-51.0); MEAN CORPUSCULAR HEMOGLOBIN 26.9 pg (29.0-33.0); MEAN CORPUSCULAR HGB CONC 33.7 g/dl (32.0-37.0); MEAN CORPUSCULAR VOLUME 79.8 fl (82.0-101.0); MEAN PLATELET VOLUME 10.9 fl (7.4-10.4); MONOCYTE # 0.5 10^3/ul (0.3-0.9); NEUTROPHILS % 81.6 % (39.0-77.0); PLATELET COUNT 118 10^3/UL (140-415); RED BLOOD COUNT 3.46 10^6/ul (4.20-5.40); RED CELL DISTRIBUTION WIDTH 16.6 % (11.5-14.5); WHITE BLOOD COUNT 13.4 10^3/ul (4.8-10.8)
[2017-01-19 08:34] LABS: CALCIUM 7.2 mg/dl (8.4-10.2); CREATININE 0.54 mg/dl (0.44-1.00); POTASSIUM 3.1 mmol/L (3.5-5.1)
[2017-01-19 08:35] LABS: ALBUMIN 2.1 g/dl (3.3-4.9); BILIRUBIN,INDIRECT 0.3 mg/dl (0-1.1); BILIRUBIN,TOTAL 0.3 mg/dl (0.2-1.3); TOTAL PROTEIN 4.4 g/dl (6.1-8.1)
[2017-01-19] MEDS ORDERED: POTASSIUM CHLORIDE (SR) 20 MEQ TAB PO STA (09:36)
--- NOTE | 2017-01-19 10:40 | PN ---
DATE: 01/19/2017 SUBJECTIVE: The patient is stable, no acute events overnight. No fevers, chills, nausea, vomiting. No shortness of breath. OBJECTIVE: VITAL SIGNS: Blood pressure is 104/63, respiration 18, pulse 104, temperature 98.9. HEENT: Head is normocephalic. NECK: Supple. HEART: Regular rate. LUNGS: Show diminished breath sounds at base. ABDOMEN: Soft, nontender to palpation. No rebound or guarding. EXTREMITIES: Negative for clubbing, cyanosis. No edema. DERMATOLOGIC: No rashes. MUSCULOSKELETAL: No joint effusions. NEUROLOGIC: No change in exam. MEDICATIONS: Reviewed. IMAGING STUDIES: Reviewed. LABORATORY DATA: Showed sodium 139, potassium 3.1, BUN 12, creatinine 0.54, white cells 13.4, hemog lobin 9.3 and platelet count is 118. ASSESSMENT AND PLAN: 1. Nonoliguric acute kidney injury with unknown baseline creatinine. Etiology is secondary to sept ic acute kidney injury hemodynamics. The patient's renal function has improved after receiving IV h ydration. At this point, continue current treatment plan, supportive care, renally dose all meds. 2. Hypokalemia, replete potassium chloride. 3. Anemia. Continue to monitor hemoglobin and hematocrit levels. 4. Mineral bone disorder. We to monitor calcium and phosphorus levels. 5. Sepsis bacteremia hepatic abscess. The patient is status post pigtail placement. Continue to m onitor. Follow up with hepatobiliary service. 6. Transaminitis. Continue to monitor. 7. Thrombocytopenia. Continue to monitor. 8. Nonoliguric Metabolic acidosis, etiology secondary to acute kidney injury and IV fluids. Acidos is is resolved. Continue to monitor. Dictated By: WISAM WALLACE/WILTON Conf#: [id number] DID#: [id number]
--- NOTE | 2017-01-19 11:39 | CONS ---
Date/Time of Note Date/Time of Note DATE: 01/19/17 TIME: 11:37 Assessment/Plan Assessment/Plan Additional Assessment/Plan Assessment recommendations; 1. P patient admitted with abdominal pain discovered to have liver abscess status post hepatic drainage procedure. Currently on appropriate antibiotic regimen. 2. Mild shortness of breath likely from chest wall splinting from abdominal pain. Continue current treatment. Consultation Date/Type/Reason Admit Date/Time Jan 17, 2017 at 00:20 Initial Consult Date 01/18/17 Type of Consultation: Pulmonary/critical care 24 HR Interval Summary Free Text/Dictation Patient condition stable. Complains of very mild right upper quadrant pain. Denies any chest pain, but complains of mild shortness of breath. Which is worsened by deep breathing. Denies any nausea vomiting fever chills. General exam; young woman, awake alert currently in no distress. Sitting in a chair by bedside. Exam/Review of Systems Vital Signs Vitals Vital Signs Date Time Temp Pulse Resp B/P Pulse Ox O2 Delivery O2 Flow Rate FiO2 01/19/17 07:44 98.9 104 18 104/63 92 01/19/17 06:09 2.0 01/18/17 20:15 Nasal Cannula 01/18/17 00:52 27 Intake and Output 01/18/17 01/18/17 01/19/17 15:00 23:00 07:00 Intake Total 1610 ml 740 ml 700 ml Output Total 40 ml 80 ml 1345 ml Balance 1570 ml 660 ml -645 ml Exam HEENT exam; supple neck, no JVD. No lymphadenopathy. Midline trachea. No thyromegaly. Pharynx is clear. Patient has fair dentition. Chest examination; diminished but clear vessel. S1-S2 audible, no murmurs. Regular rhythm. Abdomen examination; soft, there is mild right upper quadrant tenderness. There is a hepatic drain in place. Bowel sounds audible. Extremity examination; no peripheral edema. LINING FELLER BLINDSTITCH examination; no focal deficit. Results Result Diagram: 01/19/17 0730 01/19/17 0750 Results 24 hrs Laboratory Tests Test 01/18/17 12:22 01/19/17 07:30 01/19/17 07:50 Vancomycin Level Trough 5.9 L White Blood Count 13.4 #H Red Blood Count 3.46 L Hemoglobin 9.3 L Hematocrit 27.6 L Mean Corpuscular Volume 79.8 L Mean Corpuscular Hemoglobin 26.9 L Mean Corpuscular Hemoglobin Concent 33.7 Red Cell Distribution Width 16.6 H Platelet Count 118 L Mean Platelet Volume 10.9 H Neutrophils % 81.6 H Lymphocytes % 12.2 L Monocytes % 4.0 Eosinophils % 0.5 Basophils % 0.1 Nucleated Red Blood Cells % 0.0 Neutrophils # 11.0 H Lymphocytes # 1.6 Monocytes # 0.5 Eosinophils # 0.1 Basophils # 0.0 Nucleated Red Blood Cells # 0.0 Sodium Level 139 Potassium Level 3.1 L Chloride Level 111 H Carbon Dioxide Level 22 Anion Gap 9 Blood Urea Nitrogen 4 L Creatinine 0.54 Glucose Level 99 Calcium Level 7.2 L Total Bilirubin 0.3 Direct Bilirubin 0.00 Indirect Bilirubin 0.3 Aspartate Amino Transf (AST/SGOT) 38 Alanine Aminotransferase (ALT/SGPT) 58 Alkaline Phosphatase 347 H Total Protein 4.4 L Albumin 2.1 L Medications Medications Current Medications Ondansetron HCl (Zofran Inj) 4 mg Q6H PRN IV NAUSEA AND/OR VOMITING Last administered on 01/17/17 14:39; Admin Dose 4 MG; Start 01/17/17 at 00:30 Morphine Sulfate (morphine) 2 mg Q4H PRN IV SEVERE PAIN LEVEL 7-10 Last administered on 01/17/17 04:26; Admin Dose 2 MG; Start 01/17/17 at 00:30 Pantoprazole 40 mg 40 mg DAILY@06 IV Last administered on 01/19/17 05:26; Admin Dose 40 MG; Start 01/17/17 at 06:00 Piperacillin Sod/ Tazobactam Sod (Zosyn 3.375gm/ 100 ml (Pmx)) 100 ml @ 200 mls /hr Q6 IVPB Last administered on 01/19/17 05:35; Admin Dose 200 MLS/HR; Start 01/17/17 at 00:30 Morphine Sulfate (morphine) 4 mg Q4H PRN IV PAIN LEVEL 7-10 Last administered on 01/19/17 10:11; Admin Dose 4 MG; Start 01/17/17 at 04:30 IV Flush 10 ml 10 ml TID IV Last administered on 01/19/17 10:00; Admin Dose 10 ML; Start 01/18/17 at 13:00 Vancomycin HCl/ Sodium Chloride (Vancocin/NS) 150 ml @ 75 mls/hr Q8H IVPB Last administered on 01/19/17t 06:12; Admin Dose 75 MLS/HR; Start 01/18/17 at 22 :00 TANIA LOMELI Jan 19, 2017 11:39
--- NOTE | 2017-01-19 12:15 | PN ---
Date/Time of Note Date/Time of Note DATE: 01/19/17 TIME: 12:11 Assessment/Plan VTE Prophylaxis VTE Prophylaxis Intervention: SCD's Lines/Catheters IV C[facility] Type [facility]from [facility] Saline Lock Urinary Cath still in place: No Assessment/Plan Chief Complaint/Hosp Course ASSESSMENT AND PLAN: 41-year-old female coming in with weakness, shortness of breath with signs of septic shock, likely secondary to hepatic abscesses, now status post drainage. 1. Septic shock - likely sec to liver abscesses - s/p drainage. Also + gram + cocci 2/2 bottles, abscess cx + strep - Continue to monitor complete blood count, including white blood cells and Tylenol p.r.n. pain, fevers. - Monitor blood pressure and vital signs very carefully. - Follow up the culture results of the drainage from the hepatic abscesses, and final blood cx results - Continue broad spectrum antibiotics as well, Follow up recommendation by infectious disease consult as well. - Follow up Clostridium difficile results as well. - per surgery, will consider MRCP as well. 2. Renal insufficiency, again, likely secondary to #1. Continue aggressive intravenous fluid hydration. Follow up renal recommendations. 3. Hypokalemia, status post repletion of potassium, but still low today - replete, Continue to monitor for now. 4. Thrombocytopenia, unclear source - although trending up. There are no signs of any bleeding. - hold off all anticoagulants as well for now and monitor platelet levels. 5. Transaminitis - Continue to monitor for now. 6. Anion gap metabolic acidosis secondary to lactic acidosis from septic shock - resolved. - Continue to monitor labs every morning including complete blood count and basic metabolic panel. More importantly lactic acid, is normal now. 7. Gastrointestinal prophylaxis, proton pump inhibitor. 8. Deep venous thrombosis prophylaxis, sequential compression devices for now. Problems: Subjective 24 Hr Interval Summary Free Text/Dictation Pt still with some abd pain, no acute events overnight. Exam/Review of Systems Vital Signs Vitals Vital Signs Date Time Temp Pulse Resp B/P Pulse Ox O2 Delivery O2 Flow Rate FiO2 01/19/17 07:44 98.9 104 18 104/63 92 01/19/17 06:09 2.0 01/18/17 20:15 Nasal Cannula 01/18/17 00:52 27 Intake and Output 01/18/17 01/18/17 01/19/17 15:00 23:00 07:00 Intake Total 1610 ml 740 ml 700 ml Output Total 40 ml 80 ml 1345 ml Balance 1570 ml 660 ml -645 ml Exam GENERAL: The patient is lying in bed, family at bedside, no acute distress. HEENT: Pupils equal, round, react to light. Extraocular muscles intact. NECK: Supple, no thyromegaly. LUNGS: Clear to auscultation bilaterally. CARDIOVASCULAR: S1, S2 heard. ABDOMEN: Mild tenderness to palpation, otherwise nondistended, soft. No rebound or guarding. Drains in place MUSCULOSKELETAL: No lower extremity edema bilaterally. NEUROLOGIC: No focal deficits. Results Result Diagram: 01/19/17 0730 01/19/17 0750 Results 24 hrs Laboratory Tests Test 01/18/17 12:22 01/19/17 07:30 01/19/17 07:50 Vancomycin Level Trough 5.9 L White Blood Count 13.4 #H Red Blood Count 3.46 L Hemoglobin 9.3 L Hematocrit 27.6 L Mean Corpuscular Volume 79.8 L Mean Corpuscular Hemoglobin 26.9 L Mean Corpuscular Hemoglobin Concent 33.7 Red Cell Distribution Width 16.6 H Platelet Count 118 L Mean Platelet Volume 10.9 H Neutrophils % 81.6 H Lymphocytes % 12.2 L Monocytes % 4.0 Eosinophils % 0.5 Basophils % 0.1 Nucleated Red Blood Cells % 0.0 Neutrophils # 11.0 H Lymphocytes # 1.6 Monocytes # 0.5 Eosinophils # 0.1 Basophils # 0.0 Nucleated Red Blood Cells # 0.0 Sodium Level 139 Potassium Level 3.1 L Chloride Level 111 H Carbon Dioxide Level 22 Anion Gap 9 Blood Urea Nitrogen 4 L Creatinine 0.54 Glucose Level 99 Calcium Level 7.2 L Total Bilirubin 0.3 Direct Bilirubin 0.00 Indirect Bilirubin 0.3 Aspartate Amino Transf (AST/SGOT) 38 Alanine Aminotransferase (ALT/SGPT) 58 Alkaline Phosphatase 347 H Total Protein 4.4 L Albumin 2.1 L Medications Medications Current Medications Ondansetron HCl (Zofran Inj) 4 mg Q6H PRN IV NAUSEA AND/OR VOMITING Last administered on 01/17/17 14:39; Admin Dose 4 MG; Start 01/17/17 at 00:30 Morphine Sulfate (morphine) 2 mg Q4H PRN IV SEVERE PAIN LEVEL 7-10 Last administered on 01/17/17 04:26; Admin Dose 2 MG; Start 01/17/17 at 00:30 Pantoprazole 40 mg 40 mg DAILY@06 IV Last administered on 01/19/17 05:26; Admin Dose 40 MG; Start 01/17/17 at 06:00 Piperacillin Sod/ Tazobactam Sod (Zosyn 3.375gm/ 100 ml (Pmx)) 100 ml @ 200 mls /hr Q6 IVPB Last administered on 01/19/17 05:35; Admin Dose 200 MLS/HR; Start 01/17/17 at 00:30 IV Flush 10 ml 10 ml TID IV Last administered on 01/19/17 10:00; Admin Dose 10 ML; Start 01/18/17 at 13:00 Vancomycin HCl/ Sodium Chloride (Vancocin/NS) 150 ml @ 75 mls/hr Q8H IVPB Last administered on 01/19/17 06:12; Admin Dose 75 MLS/HR; Start 01/18/17 at 22 :00 Acetaminophen/ Hydrocodone Bitart ([place] (7.5-325)) 1 tab Q4H PRN PO PAIN LEVEL 8-10; Start 01/19/17 at 12:30; Status DEVEN ZAMARRIPA Jan 19, 2017 12:15
--- NOTE | 2017-01-19 17:27 | PN ---
Date/Time of Note Date/Time of Note DATE: 01/19/17 TIME: 17:26 Assessment/Plan Lines/Catheters IV Catheter Type (from Nrsg): Saline Lock Esquivel in Place (from Nrsg): No Assessment/Plan Assessment/Plan [facility] Progress Note Date of Service: 01/19/17 Today's Impression & Plan: Overall stable and continues to improve. No indication for acute surgical intervention. With above assessment, I've recommended the following for today: 1. Keep inhouse. 2. Gentle diuresis with goal of getting BNP < 200. 3. Targeted downstaging of antimicrobials per Dr. Herrmann. 4. Follow up with cultures results and sensitivities. 5. Regular diet. 6. Consider MRCP. 7. Evaluation for diabetes. 8. Possible need for further endoscopic evaluation if other source of infection found and continued search for source of infection. 9. Increase activity Thank you again for your great care of this very pleasant patient and wonderful family. If there are any questions, please feel free to call me at [phone]. TOTAL VISIT TIME: 20 minutes of which more than half was spent in [id number] discussion with the patient, possibly including family, as well as coordination of care between multiple physicians and providers. Disclaimer: Inadvertent spelling or grammatical errors are likely due to EHR/ dictation software use and do not reflect on the overall quality of patient care. Updated Clinical Summary: The patient is a very pleasant 41-year-old lady with comorbidities including BMI 25.4 who presented through the emergency department at [facility] on 01/16/2017 with multiple hepatic abscesses. COMORBIDITIES: 1. BMI 25.4. 2. Possible prediabetes given the elevated hemoglobin A1c 3. Sepsis with two liver abscesses in the right lobe of the liver, status post percutaneous drainage procedure 01/17/17 at [facility]. Subjective: No major events or complaints; no abd pain and under control with medications; no n/v/d; no sob or cp; + bowel activity; minimal activity Objective: Vitals: See below Exam: GENERAL: On exam, the patient was sitting in a chair and appeared to be comfortable and in no acute distress. ABDOMEN: Soft, nontender and nondistended. Perc hepatic drains both ss without obvious bile. There are no peritoneal signs or guarding. SKIN: Skin appears to be pink and feels warm to touch. NEUROLOGIC: Patient is awake, alert, and follows commands appropriately. Exam/Review of Systems Vital Signs Vitals Vital Signs Date Time Temp Pulse Resp B/P Pulse Ox O2 Delivery O2 Flow Rate FiO2 01/19/17 07:44 98.9 104 18 104/63 92 01/19/17 06:09 2.0 01/18/17 20:15 Nasal Cannula 01/18/17 00:52 27 Intake and Output 01/18/17 01/18/17 01/19/17 14:59 22:59 06:59 Intake Total 1760 ml 740 ml 700 ml Output Total 40 ml 80 ml 1345 ml Balance 1720 ml 660 ml -645 ml Results Result Diagram: 01/19/17 0730 01/19/17 0750 RALF MG M.D. Jan 19, 2017 17:27
[2017-01-19] MEDS: FUROSEMIDE 20 MG INJ IV SCH ×2 (17:55→23:56)
[2017-01-19 20:00] VITALS: BP 111/71; RESP 16
[2017-01-19] MEDS: HYDROCODONE/APAP (7.5/325) TAB PO PRN (21:30)
--- NOTE | 2017-01-19 21:44 | CONS ---
Date/Time of Note Date/Time of Note DATE: 01/19/17 TIME: 21:40 Assessment/Plan Assessment/Plan Chief Complaint/Hosp Course SUBJECTIVE: No events overnight. The patient is alert, feels better, no fevers. MICROBIOLOGY: Blood culture growing gram-positive cocci in pairs and clusters. Urine culture negative. Influenza swab negative. Abdominal fluid culture + Strep INDWELLINGS: Intra-abdominal drainage catheters. ANTIMICROBIALS: The patient is on IV vancomycin and Zosyn. PHYSICAL EXAMINATION: GENERAL: Well-developed, well-nourished, middle-aged woman who is alert, in no distress. HEENT: Head atraumatic, normocephalic. Sclerae anicteric. Buccal mucosa dry. NECK: Supple. CHEST: Chest rise is symmetrical. Breath sounds clear. HEART: S1, S2. ABDOMEN: Soft. Bowel sounds present. The patient has two intra-abdominal drainage catheters on the right. EXTREMITIES: Without cyanosis or edema. ASSESSMENT: 1. Sepsis with Gram-positive cocci bacteremia 2 to #2 2. Liver abscesses in the right lower lobe of the liver, status post percutaneous drainage procedure. 3. Acute kidney injury. 4. Anemia. PLAN: The patient remains stable. Repeat blood cultures negative, fluid cx growing Strep, will dc Vanco, continue Zosyn, f/u surgical rec-s, consider PICC dw pt/staff Problems: Consultation Date/Type/Reason Admit Date/Time Jan 17, 2017 at 00:20 Initial Consult Date 01/18/17 Type of Consultation: ID Exam/Review of Systems Vital Signs Vitals Vital Signs Date Time Temp Pulse Resp B/P Pulse Ox O2 Delivery O2 Flow Rate FiO2 01/19/17 20:00 98.5 94 16 111/71 93 01/19/17 06:09 2.0 01/18/17 20:15 Nasal Cannula 01/18/17 00:52 27 Intake and Output 01/18/17 01/18/17 01/19/17 15:00 23:00 07:00 Intake Total 1610 ml 740 ml 700 ml Output Total 40 ml 80 ml 1345 ml Balance 1570 ml 660 ml -645 ml Results Result Diagram: 01/19/17 0730 01/19/17 0750 Results 24 hrs Laboratory Tests Test 01/19/17 07:30 01/19/17 07:50 White Blood Count 13.4 #H Red Blood Count 3.46 L Hemoglobin 9.3 L Hematocrit 27.6 L Mean Corpuscular Volume 79.8 L Mean Corpuscular Hemoglobin 26.9 L Mean Corpuscular Hemoglobin Concent 33.7 Red Cell Distribution Width 16.6 H Platelet Count 118 L Mean Platelet Volume 10.9 H Neutrophils % 81.6 H Lymphocytes % 12.2 L Monocytes % 4.0 Eosinophils % 0.5 Basophils % 0.1 Nucleated Red Blood Cells % 0.0 Neutrophils # 11.0 H Lymphocytes # 1.6 Monocytes # 0.5 Eosinophils # 0.1 Basophils # 0.0 Nucleated Red Blood Cells # 0.0 Sodium Level 139 Potassium Level 3.1 L Chloride Level 111 H Carbon Dioxide Level 22 Anion Gap 9 Blood Urea Nitrogen 4 L Creatinine 0.54 Glucose Level 99 Calcium Level 7.2 L Total Bilirubin 0.3 Direct Bilirubin 0.00 Indirect Bilirubin 0.3 Aspartate Amino Transf (AST/SGOT) 38 Alanine Aminotransferase (ALT/SGPT) 58 Alkaline Phosphatase 347 H Total Protein 4.4 L Albumin 2.1 L Medications Medications Current Medications Ondansetron HCl (Zofran Inj) 4 mg Q6H PRN IV NAUSEA AND/OR VOMITING Last administered on 01/17/17 14:39; Admin Dose 4 MG; Start 01/17/17 at 00:30 Morphine Sulfate 2 mg 2 mg Q4H PRN IV SEVERE PAIN LEVEL 7-10 Last administered on 01/17/17 04:26; Admin Dose 2 MG; Start 01/17/17 at 00:30 Piperacillin Sod/ Tazobactam Sod (Zosyn 3.375gm/ 100 ml (Pmx)) 100 ml @ 200 mls /hr Q6 IVPB Last administered on 01/19/17 17:55; Admin Dose 200 MLS/HR; Start 01/17/17 at 00:30 IV Flush 10 ml 10 ml TID IV Last administered on 01/19/17 21:27; Admin Dose 10 ML; Start 01/18/17 at 13:00 Vancomycin HCl/ Sodium Chloride (Vancocin/NS) 150 ml @ 75 mls/hr Q8H IVPB Last administered on 01/19/17 13:53; Admin Dose 75 MLS/HR; Start 01/18/17 at 22 :00 Acetaminophen/ Hydrocodone Bitart ([place] (7.5-325)) 1 tab Q4H PRN PO PAIN LEVEL 8-10 Last administered on 01/19/17 21:30; Admin Dose 1 TAB; Start at 12:30 Pantoprazole (Protonix Tab) 40 mg DAILY@06 PO ; Start 01/20/17 at 06:00 Furosemide (Lasix) 20 mg Q6 IV Last administered on 01/19/17 17:55; Admin Dose 20 MG; Start 01/19/17 at 18:00; Stop 01/20/17 at 12:01 USHA ALVARES NP Jan 19, 2017 21:44
[2017-01-19 23:55] VITALS: BP 114/64; PULSE 94
--- NOTE | 2017-01-20 03:35 | RADRPT ---
PROCEDURE: XR Chest. CLINICAL INDICATION: Atelectasis. Line placement. TECHNIQUE: Portable single view of the chest COMPARISON: 01/13/2017 FINDINGS: Shallow lung inflation. Probable top normal heart size. Aortic calcification. Patchy atelectasis or infiltrates of the lung bases, right greater than left, with small right greater than left pleura l effusions. Right-sided PICC line is seen with tip likely in the superior vena cava thorax is seen . No bony abnormality is seen. IMPRESSION: Bibasilar atelectasis or infiltrates and small effusions. Right PICC line in good position. RPTAT: HLBE Physician Ami Date Time Electronically viewed and signed by Justine Kumar Physician on 01/20/2017 03:34 LE/
[2017-01-20] MEDS: PIPER-TAZO 3.375 GM IV (PMX) 100 ML IVPB SCH ×3 (05:34→17:26)
[2017-01-20] MEDS: PANTOPRAZOLE (EC) 40 MG TAB PO SCH (05:34)
[2017-01-20 06:25] VITALS: BP 99/60; PULSE 82
[2017-01-20 06:30] LABS: ADD SCAN DIFF NO
[2017-01-20 06:31] LABS: INR 1.07; PROTIME 13.9 Sec (12.2-14.2); PT RATIO 1.1
[2017-01-20 06:32] LABS: PARTIAL THROMBOPLASTIN TIME 30.5 Sec (25.0-35.0)
[2017-01-20 06:43] LABS: BASOPHILS % 0.1 % (0.0-2.0); EOSINOPHILS # 0.1 10^3/ul (0.0-0.5); EOSINOPHILS % 0.7 % (0.0-7.0); HEMATOCRIT 27.7 % (37.0-47.0); HEMOGLOBIN 9.4 g/dl (12.0-16.0); LYMPHOCYTES # 1.8 10^3/ul (0.8-2.9); MEAN CORPUSCULAR HEMOGLOBIN 27.5 pg (29.0-33.0); MEAN CORPUSCULAR HGB CONC 33.9 g/dl (32.0-37.0); MEAN PLATELET VOLUME 10.8 fl (7.4-10.4); MONOCYTE # 0.6 10^3/ul (0.3-0.9); MONOCYTES % 4.6 % (0.0-11.0); NEUTROPHIL # 10.7 10^3/ul (1.6-7.5); NEUTROPHILS % 79.2 % (39.0-77.0); PLATELET COUNT 155 10^3/UL (140-415); RED BLOOD COUNT 3.42 10^6/ul (4.20-5.40); WHITE BLOOD COUNT 13.5 10^3/ul (4.8-10.8)
[2017-01-20 06:49] LABS: ALBUMIN 2.6 g/dl (3.3-4.9); ALBUMIN/GLOBULIN RATIO 0.92; BILIRUBIN,INDIRECT 0.4 mg/dl (0-1.1); BILIRUBIN,TOTAL 0.4 mg/dl (0.2-1.3); CALCIUM 7.1 mg/dl (8.4-10.2); CREATININE 0.5 mg/dl (0.44-1.00); MAGNESIUM 1.4 mg/dl (1.7-2.5); PHOSPHORUS 3.2 mg/dl (2.5-4.9); TOTAL PROTEIN 5.4 g/dl (6.1-8.1)
[2017-01-20 06:57] LABS: POTASSIUM 2.7 mmol/L (3.5-5.1)
[2017-01-20] MEDS ORDERED: [UNRECOGNIZED DRUG - OTHER] IV PRN (07:00)
[2017-01-20] MEDS ORDERED: [UNRECOGNIZED DRUG - REMARK] IV PRN (07:00)
[2017-01-20] MEDS ORDERED: LIDOCAINE 1% (MPF) 5 ML VIAL INJ ONE (07:00)
[2017-01-20] MEDS ORDERED: SODIUM CHLORIDE 0.9% IV PRN ×2 (07:00)
[2017-01-20] MEDS ORDERED: [UNRECOGNIZED DRUG - MIXTURE] IV PRN (07:00)
[2017-01-20] MEDS ORDERED: ACETAMINOPHEN 325 MG TAB PO PRN (07:00)
[2017-01-20] MEDS ORDERED: POTASSIUM CHLORIDE (SR) 20 MEQ TAB PO ONE (07:30)
[2017-01-20] MEDS ORDERED: MAGNESIUM SULFATE 4 GM/100 ML 100 ML IVPB ONE (07:30)
[2017-01-20] MEDS ORDERED: POTASSIUM CHLORIDE 250 ML IVPB ONE (07:30)
[2017-01-20 07:42] VITALS: BP 102/56; RESP 18
[2017-01-20 07:52] LABS: CALCIUM 7.1 mg/dl (8.4-10.2); CREATININE 0.52 mg/dl (0.44-1.00)
[2017-01-20 07:55] LABS: POTASSIUM 2.7 mmol/L (3.5-5.1)
[2017-01-20] MEDS: FUROSEMIDE 20 MG INJ IV SCH ×3 (08:47→18:03)
--- NOTE | 2017-01-20 09:57 | PN ---
DATE: 01/20/2017 SUBJECTIVE: The patient is stable. No acute events overnight. No fevers, chills, nausea, or vomit ing. OBJECTIVE: VITAL SIGNS: Blood pressure is 102/56, respirations 18, pulse 82, temperature 98.6. HEENT: Head is normocephalic. Pupils are reactive to light. NECK: Supple. HEART: Regular rate. LUNGS: Showed diminished breath sounds at the base. ABDOMEN: Soft, nontender to palpation. No rebound or guarding. EXTREMITIES: Negative for clubbing or cyanosis. No edema. DERMATOLOGIC: No rashes. MUSCULOSKELETAL: Have no joint effusion. NEUROLOGIC: No change in exam. MEDICATIONS: The patient's medications have been reviewed. LABORATORY DATA: Shows a white count of 13.5, hemoglobin 9.4, hematocrit 27.7, platelet count is 15 5. Sodium 137, potassium 2.7, magnesium 1.4, BUN 5, creatinine 0.52. ASSESSMENT AND PLAN: 1. Nonoliguric acute kidney injury. Etiology is secondary to hemodynamics. Renal function has nor malized. Will continue the current treatment plan, supportive care, renally dose all meds. 2. Hypokalemia. Etiology is secondary to hypomagnesemia and diuretic therapy. The patient is rece iving 80 mEq of potassium chloride. Will continue. 3. Hypomagnesemia. Will replete with magnesium sulfate. 4. Anemia. Continue to monitor hemoglobin and hematocrit levels. 5. Mineral bone disorder. Continue to monitor calcium and phosphorus levels. 6. Sepsis secondary to bacteremia and hepatic abscess. The patient is status post pigtail placemen t. Continue to monitor. Continue antibiotic therapy. Follow up with the hepatobiliary service. 7. Transaminitis. Continue to monitor. 8. Thrombocytopenia. Improved. 9. Metabolic acidosis. Resolved. Dictated By: WISAM WALLACE/WILTON Conf#: [id number] DID#: [id number]
--- NOTE | 2017-01-20 10:26 | PN ---
DATE: 01/20/2017 SUBJECTIVE: Chart reviewed. The patient does not appear in acute distress. Currently on 1 liter O 2 nasal cannula, saturating 98%. PHYSICAL EXAMINATION: VITAL SIGNS: Blood pressure 102/56, pulse 82, respirations 18, temperature 98.6. HEENT: Pupils are equal and reactive to light. Anicteric sclerae. NECK: Supple. No JVD noted, no cervical adenopathy noted, no carotid bruits heard. LUNGS: Fair breath sounds bilaterally. CARDIOVASCULAR: S1, S2 normal. Regular rhythm. ABDOMEN: Soft. Mild right upper quadrant tenderness. Hepatic drain in place. Bowel sounds positi ve. EXTREMITIES: No clubbing, cyanosis, or edema noted. NEUROLOGIC: No focal deficits present. LABORATORY: WBC 13.5, hemoglobin 9.4, hematocrit 27.7, platelets 155. Sodium 137, potassium 2.7, c hloride 101, CO2 29, BUN 5, 0.52, glucose 103. IMPRESSION: 1. Status post sepsis. 2. Bacteremia. 3. Hepatic abscess, status post drainage. 4. Hypokalemia. 5. Status post acute kidney injury. RECOMMENDATIONS: 1. Continue current antibiotics. 2. Continue drainage. 3. Potassium supplementation. 4. Nephrology noted. 5. Surgical followup. Dictated By: EUGENIA ISAAC MD, MA/WILTON Conf#: [id number] DID#: [id number]
--- NOTE | 2017-01-20 11:57 | PN ---
Date/Time of Note Date/Time of Note DATE: 01/20/17 TIME: 11:51 Assessment/Plan VTE Prophylaxis VTE Prophylaxis Intervention: SCD's Lines/Catheters IV Catheter Type (from Nrs): PICC Line Central line still needed: Yes (exterminator helper IV abx, difficult IV access) Urinary Cath still in place: No Assessment/Plan Assessment/Plan 1. Septic shock - likely sec to liver abscesses - s/p drainage. Also + gram + cocci 2/2 bottles, abscess cx + strep, ID and Hepatobiliary following 2. IMER due to sepsis and Prerenal azotemia 3. Electrolytes monitoring 4. Thrombocytopenia, unclear source - although trending up. There are no signs of any bleeding. - hold off all anticoagulants as well for now and monitor platelet levels. 5. Transaminitis - Continue to monitor for now. 6. Anion gap metabolic acidosis secondary to lactic acidosis from septic shock - resolved. 7. Gastrointestinal prophylaxis, proton pump inhibitor. 8. Deep venous thrombosis prophylaxis, sequential compression devices for now. pt is ordered to have lasix 20mg IV Q 6 hr x 4 doses then we will reassess her in AM to seeif she needs more lasix IV abX [address] ID following Subjective 24 Hr Interval Summary Free Text/Dictation drainage output >200 cc , no fever, no chills, no headache Exam/Review of Systems Vital Signs Vitals Vital Signs Date Time Temp Pulse Resp B/P Pulse Ox O2 Delivery O2 Flow Rate FiO2 01/20/17 08:05 Nasal Cannula 1.0 01/20/17 07:42 98.6 82 18 102/56 98 01/18/17 00:52 27 Intake and Output 01/19/17 01/19/17 01/20/17 15:00 23:00 07:00 Intake Total 100 ml 970 ml 920 ml Output Total 75 ml 3300 ml Balance 100 ml 895 ml -2380 ml Exam GENERAL: Well-developed, well-nourished, middle-aged woman who is alert, in no distress. HEENT: Head atraumatic, normocephalic. Sclerae anicteric. Buccal mucosa dry. NECK: Supple. CHEST: Chest rise is symmetrical. Breath sounds clear. HEART: S1, S2. ABDOMEN: Soft. Bowel sounds present. The patient has two intra-abdominal drainage catheters on the right. EXTREMITIES: Without cyanosis or edema. Results Result Diagram: 01/20/17 0539 01/20/17 0539 Results 24 hrs Laboratory Tests Test 01/19/17 21:00 01/20/17 05:39 Vancomycin Level Trough 9.6 L White Blood Count 13.5 H Red Blood Count 3.42 L Hemoglobin 9.4 L Hematocrit 27.7 L Mean Corpuscular Volume 81.0 L Mean Corpuscular Hemoglobin 27.5 L Mean Corpuscular Hemoglobin Concent 33.9 Red Cell Distribution Width 16.0 H Platelet Count 155 # Mean Platelet Volume 10.8 H Neutrophils % 79.2 H Lymphocytes % 13.0 L Monocytes % 4.6 Eosinophils % 0.7 Basophils % 0.1 Nucleated Red Blood Cells % 0.0 Neutrophils # 10.7 H Lymphocytes # 1.8 Monocytes # 0.6 Eosinophils # 0.1 Basophils # 0.0 Nucleated Red Blood Cells # 0.0 Prothrombin Time 13.9 Prothrombin Time Ratio 1.1 INR International Normalized Ratio 1.07 Activated Partial Thromboplast Time 30.5 Sodium Level 137 Potassium Level 2.7 *L Chloride Level 101 Carbon Dioxide Level 29 Anion Gap 10 Blood Urea Nitrogen 5 L Creatinine 0.52 Glucose Level 103 Calcium Level 7.1 L Phosphorus Level 3.2 Magnesium Level 1.4 L Total Bilirubin 0.4 Direct Bilirubin 0.00 Indirect Bilirubin 0.4 Aspartate Amino Transf (AST/SGOT) 35 Alanine Aminotransferase (ALT/SGPT) 54 Alkaline Phosphatase 338 H B-Type Natriuretic Peptide 2180 H Total Protein 5.4 #L Albumin 2.6 L Globulin 2.80 Albumin/Globulin Ratio 0.92 Medications Medications Current Medications Ondansetron HCl (Zofran Inj) 4 mg Q6H PRN IV NAUSEA AND/OR VOMITING Last administered on 01/17/17 14:39; Admin Dose 4 MG; Start 01/17/17 at 00:30 Morphine Sulfate 2 mg 2 mg Q4H PRN IV SEVERE PAIN LEVEL 7-10 Last administered on 01/17/17 04:26; Admin Dose 2 MG; Start 01/17/17 at 00:30 Piperacillin Sod/ Tazobactam Sod (Zosyn 3.375gm/ 100 ml (Pmx)) 100 ml @ 200 mls /hr Q6 IVPB Last administered on 01/20/17 05:34; Admin Dose 200 MLS/HR; Start 01/17/17 at 00:30 IV Flush (NS 10 ml) 10 ml TID IV Last administered on 01/20/17 08:48; Admin Dose 10 ML; Start 01/18/17 at 13:00 Acetaminophen/ Hydrocodone Bitart ([place] (7.5-325)) 1 tab Q4H PRN PO PAIN LEVEL 8-10 Last administered on 01/19/17 21:30; Admin Dose 1 TAB; Start at 12:30 Pantoprazole (Protonix Tab) 40 mg DAILY@06 PO Last administered on 01/20/17 05 :34; Admin Dose 40 MG; Start 01/20/17 at 06:00 Furosemide (Lasix) 20 mg Q6 IV Last administered on 01/20/17 08:47; Admin Dose 20 MG; Start 01/19/17 at 18:00; Stop 01/20/17 at 12:01 IV Flush (NS 10 ml) 10 ml PRN PRN IV FLUSH LINE; Start 01/20/17 at 07:00 IV Flush (NS 10 ml) 10 ml PRN PRN IV FLUSH LINE; Start 01/20/17 at 07:00 IV Flush (NS 10 ml) 20 ml PRN PRN IV FLUSH LINE; Start 01/20/17 at 07:00 Heparin Sodium (Porcine) (Heparin Flush (10 Units/ml)) 50 unit PRN PRN IV LUMENS NOT IN USE; Start 01/20/17 at 07:00 Acetaminophen (Tylenol Tab) 650 mg Q4H PRN PO MILD PAIN LEVEL 1-3; Start at 07:00 NELL LORA MD Jan 20, 2017 11:56
--- NOTE | 2017-01-20 15:02 | PN ---
Date/Time of Note Date/Time of Note DATE: 01/20/17 TIME: 15:00 Assessment/Plan Lines/Catheters IV Catheter Type (from Nrsg): PICC Line Esquivel in Place (from Nrsg): No Assessment/Plan Assessment/Plan [facility] Progress Note Date of Service: 01/20/17 Today's Impression & Plan: Overall stable and continues to improve. No indication for acute surgical intervention. Can benefit from a little more diuresis. With above assessment, I've recommended the following for today: 1. Keep inhouse. 2. Gentle diuresis with goal of getting BNP < 200. 3. Targeted downstaging of antimicrobials per Dr. Herrmann. 4. Follow up with cultures results and sensitivities. 5. Regular diet. 6. Possible need for further endoscopic evaluation if other source of infection found and continued search for source of infection. 7. Evaluation for diabetes. 8. Increase activity Thank you again for your great care of this very pleasant patient and wonderful family. If there are any questions, please feel free to call me at [phone]. TOTAL VISIT TIME: 20 minutes of which more than half was spent in [id number] discussion with the patient, possibly including family, as well as coordination of care between multiple physicians and providers. Disclaimer: Inadvertent spelling or grammatical errors are likely due to EHR/ dictation software use and do not reflect on the overall quality of patient care. Updated Clinical Summary: The patient is a very pleasant 41-year-old lady with comorbidities including BMI 25.4 who presented through the emergency department at [facility] on 01/16/2017 with multiple hepatic abscesses. COMORBIDITIES: 1. BMI 25.4. 2. Possible prediabetes given the elevated hemoglobin A1c 3. Sepsis with two liver abscesses in the right lobe of the liver, status post percutaneous drainage procedure 01/17/17 at [facility]. Subjective: No major events or complaints; no abd pain and under control with medications; no n/v/d; no sob or cp; + bowel activity; minimal activity Objective: Vitals: See below Exam: GENERAL: On exam, the patient was sitting in a chair and appeared to be comfortable and in no acute distress. ABDOMEN: Soft, nontender and nondistended. Perc hepatic drains both ss without obvious bile. There are no peritoneal signs or guarding. SKIN: Skin appears to be pink and feels warm to touch. NEUROLOGIC: Patient is awake, alert, and follows commands appropriately. Exam/Review of Systems Vital Signs Vitals Vital Signs Date Time Temp Pulse Resp B/P Pulse Ox O2 Delivery O2 Flow Rate FiO2 01/20/17 08:05 Nasal Cannula 1.0 01/20/17 07:42 98.6 82 18 102/56 98 01/18/17 00:52 27 Intake and Output 01/19/17 01/19/17 01/20/17 15:00 23:00 07:00 Intake Total 100 ml 970 ml 920 ml Output Total 75 ml 3300 ml Balance 100 ml 895 ml -2380 ml Results Result Diagram: 01/20/17 0539 01/20/17 0539 RALF MG M.D. Jan 20, 2017 15:02
--- NOTE | 2017-01-20 16:15 | CONS ---
Date/Time of Note Date/Time of Note DATE: 01/20/17 TIME: 16:14 Assessment/Plan Assessment/Plan Chief Complaint/Hosp Course ID PROGRESS NOTE SUBJECTIVE: Awake, alert, VSS, NAD, appears weak MICROBIOLOGY: Blood culture growing gram-positive cocci in pairs and clusters. Urine culture negative. Influenza swab negative. Abdominal fluid culture + Strep INDWELLINGS: Intra-abdominal drainage catheters. ANTIMICROBIALS: Zosyn, s/p Vanco PHYSICAL EXAMINATION: GENERAL: Well-developed, well-nourished, middle-aged woman who is alert, in no distress. HEENT: Head atraumatic, normocephalic. Sclerae anicteric. Buccal mucosa dry. NECK: Supple. CHEST: Chest rise is symmetrical. Breath sounds clear. HEART: S1, S2. ABDOMEN: Soft. Bowel sounds present. The patient has two intra-abdominal drainage catheters on the right. EXTREMITIES: Without cyanosis or edema. ID ASSESSMENT: 1. Sepsis with Gram-positive cocci bacteremia 2 to #2 * Repeat blood cultures negative 2. Liver abscesses in the right lower lobe of the liver, status post percutaneous drainage procedure. * fluid cx growing Strep 3. Acute kidney injury. 4. Anemia. ID PLAN: Continue ABX: Zosyn Vanco IV DC'd yesterday f/u surgical rec-s, consider PICC . Problems: Consultation Date/Type/Reason Admit Date/Time Jan 17, 2017 at 00:20 Initial Consult Date 01/18/17 Type of Consultation: ID Exam/Review of Systems Vital Signs Vitals Vital Signs Date Time Temp Pulse Resp B/P Pulse Ox O2 Delivery O2 Flow Rate FiO2 01/20/17 08:05 Nasal Cannula 1.0 01/20/17 07:42 98.6 82 18 102/56 98 01/18/17 00:52 27 Intake and Output 01/19/17 01/19/17 01/20/17 15:00 23:00 07:00 Intake Total 100 ml 970 ml 920 ml Output Total 75 ml 3300 ml Balance 100 ml 895 ml -2380 ml Results Result Diagram: 01/20/17 0539 01/20/17 0539 Results 24 hrs Laboratory Tests Test 01/19/17 21:00 01/20/17 05:39 Vancomycin Level Trough 9.6 L White Blood Count 13.5 H Red Blood Count 3.42 L Hemoglobin 9.4 L Hematocrit 27.7 L Mean Corpuscular Volume 81.0 L Mean Corpuscular Hemoglobin 27.5 L Mean Corpuscular Hemoglobin Concent 33.9 Red Cell Distribution Width 16.0 H Platelet Count 155 # Mean Platelet Volume 10.8 H Neutrophils % 79.2 H Lymphocytes % 13.0 L Monocytes % 4.6 Eosinophils % 0.7 Basophils % 0.1 Nucleated Red Blood Cells % 0.0 Neutrophils # 10.7 H Lymphocytes # 1.8 Monocytes # 0.6 Eosinophils # 0.1 Basophils # 0.0 Nucleated Red Blood Cells # 0.0 Prothrombin Time 13.9 Prothrombin Time Ratio 1.1 INR International Normalized Ratio 1.07 Activated Partial Thromboplast Time 30.5 Sodium Level 137 Potassium Level 2.7 *L Chloride Level 101 Carbon Dioxide Level 29 Anion Gap 10 Blood Urea Nitrogen 5 L Creatinine 0.52 Glucose Level 103 Calcium Level 7.1 L Phosphorus Level 3.2 Magnesium Level 1.4 L Total Bilirubin 0.4 Direct Bilirubin 0.00 Indirect Bilirubin 0.4 Aspartate Amino Transf (AST/SGOT) 35 Alanine Aminotransferase (ALT/SGPT) 54 Alkaline Phosphatase 338 H B-Type Natriuretic Peptide 2180 H Total Protein 5.4 #L Albumin 2.6 L Globulin 2.80 Albumin/Globulin Ratio 0.92 Medications Medications Current Medications Ondansetron HCl (Zofran Inj) 4 mg Q6H PRN IV NAUSEA AND/OR VOMITING Last administered on 01/17/17 14:39; Admin Dose 4 MG; Start 01/17/17 at 00:30 Morphine Sulfate 2 mg 2 mg Q4H PRN IV SEVERE PAIN LEVEL 7-10 Last administered on 01/17/17 04:26; Admin Dose 2 MG; Start 01/17/17 at 00:30 Piperacillin Sod/ Tazobactam Sod (Zosyn 3.375gm/ 100 ml (Pmx)) 100 ml @ 200 mls /hr Q6 IVPB Last administered on 01/20/17 12:39; Admin Dose 200 MLS/HR; Start 01/17/17 at 00:30 IV Flush (NS 10 ml) 10 ml TID IV Last administered on 01/20/17 12:40; Admin Dose 10 ML; Start 01/18/17 at 13:00 Acetaminophen/ Hydrocodone Bitart ([place] (7.5-325)) 1 tab Q4H PRN PO PAIN LEVEL 8-10 Last administered on 01/19/17 21:30; Admin Dose 1 TAB; Start at 12:30 Pantoprazole (Protonix Tab) 40 mg DAILY@06 PO Last administered on 01/20/17 05 :34; Admin Dose 40 MG; Start 01/20/17 at 06:00 IV Flush (NS 10 ml) 10 ml PRN PRN IV FLUSH LINE; Start 01/20/17 at 07:00 IV Flush (NS 10 ml) 10 ml PRN PRN IV FLUSH LINE; Start 01/20/17 at 07:00 IV Flush (NS 10 ml) 20 ml PRN PRN IV FLUSH LINE; Start 01/20/17 at 07:00 Heparin Sodium (Porcine) (Heparin Flush (10 Units/ml)) 50 unit PRN PRN IV LUMENS NOT IN USE; Start 01/20/17 at 07:00 Acetaminophen (Tylenol Tab) 650 mg Q4H PRN PO MILD PAIN LEVEL 1-3; Start at 07:00 Furosemide (Lasix) 20 mg Q6 IV ; Start 01/20/17 at 18:00; Stop 01/21/17 at 06:01 MITESH METCALF NP Jan 20, 2017 16:15
[2017-01-20] MEDS: ONDANSETRON 4 MG INJ IV PRN (18:03)
[2017-01-20] MEDS: HYDROCODONE/APAP (7.5/325) TAB PO PRN (18:03)
[2017-01-20 20:00] VITALS: BP 102/63; RESP 20
[2017-01-21] MEDS: PIPER-TAZO 3.375 GM IV (PMX) 100 ML IVPB SCH ×3 (00:16→12:41)
[2017-01-21] MEDS: PANTOPRAZOLE (EC) 40 MG TAB PO SCH (05:01)
[2017-01-21] MEDS: HYDROCODONE/APAP (7.5/325) TAB PO PRN ×2 (05:02→06:41)
[2017-01-21 06:00] LABS: ADD SCAN DIFF NO
[2017-01-21] MEDS: FUROSEMIDE 20 MG INJ IV SCH ×2 (06:00)
[2017-01-21 06:03] LABS: BASOPHILS % 0.1 % (0.0-2.0); EOSINOPHILS % 0.3 % (0.0-7.0); HEMATOCRIT 26.9 % (37.0-47.0); HEMOGLOBIN 8.8 g/dl (12.0-16.0); LYMPHOCYTES % 15.6 % (15.0-51.0); MEAN CORPUSCULAR HEMOGLOBIN 26.5 pg (29.0-33.0); MEAN CORPUSCULAR HGB CONC 32.7 g/dl (32.0-37.0); MONOCYTE # 0.7 10^3/ul (0.3-0.9); MONOCYTES % 5.8 % (0.0-11.0); NEUTROPHIL # 9.7 10^3/ul (1.6-7.5); NEUTROPHILS % 76.2 % (39.0-77.0); PLATELET COUNT 242 10^3/UL (140-415); RED BLOOD COUNT 3.32 10^6/ul (4.20-5.40); RED CELL DISTRIBUTION WIDTH 15.9 % (11.5-14.5); WHITE BLOOD COUNT 12.7 10^3/ul (4.8-10.8)
[2017-01-21 06:45] LABS: PHOSPHORUS 2.7 mg/dl (2.5-4.9)
[2017-01-21 07:35] LABS: CALCIUM 6.9 mg/dl (8.4-10.2); CREATININE 0.55 mg/dl (0.44-1.00); POTASSIUM 3.4 mmol/L (3.5-5.1)
[2017-01-21 07:59] VITALS: BP 108/63; RESP 18
[2017-01-21] MEDS: morphine 2 MG INJ IV PRN (08:43)
[2017-01-21] MEDS: ONDANSETRON 4 MG INJ IV PRN ×2 (09:28→17:25)
[2017-01-21] MEDS ORDERED: POTASSIUM CHLORIDE (SR) 20 MEQ TAB PO STA (09:32)
--- NOTE | 2017-01-21 09:32 | PN ---
Date/Time of Note Date/Time of Note DATE: 01/21/17 TIME: 09:25 Assessment/Plan Lines/Catheters IV Catheter Type (from Nrs): PICC Line Esquivel in Place (from Nrs): No Assessment/Plan Assessment/Plan [facility] Progress Note Date of Service: 01/21/17 Today's Impression & Plan: Overall stable and continues to improve. No indication for acute surgical intervention. Liver abscesses appear well controlled with the drains and no bile communication seen. Will likely be able to d/c in a few days. Doubt patient has pneumonia (x-ray finding without any other supportive clinical evidence). Hoping for d/c home in 24-48 hours with oral conversion of antimicrobials. With above assessment, I've recommended the following for today: 1. Keep inhouse. 2. Targeted downstaging of antimicrobials per Dr. Herrmann with oral conversion as soon as possible 3. Follow up with cultures results and sensitivities. 4. Cont regular diet. 5. Possible need for further endoscopic evaluation in search of source of infection (no current obvious source found). 6. Evaluation for diabetes. 7. Increase activity 8. Change accordion bags to SAGE bulbs on both hepatic drains Thank you again for your great care of this very pleasant patient and wonderful family. If there are any questions, please feel free to call me at [phone]. TOTAL VISIT TIME: 20 minutes of which more than half was spent in [id number] discussion with the patient, possibly including family, as well as coordination of care between multiple physicians and providers. Disclaimer: Inadvertent spelling or grammatical errors are likely due to EHR/ dictation software use and do not reflect on the overall quality of patient care. Updated Clinical Summary: The patient is a very pleasant 41-year-old lady with comorbidities including BMI 25.4 who presented through the emergency department at [facility] on 01/16/2017 with multiple hepatic abscesses. COMORBIDITIES: 1. BMI 25.4. 2. Possible prediabetes given the elevated hemoglobin A1c 3. Sepsis with two liver abscesses in the right lobe of the liver, status post percutaneous drainage procedure 01/17/17 at [facility]. Subjective: No major events or complaints; no abd pain and under control with medications; no n/v/d; no sob or cp; + bowel activity; minimal activity Objective: Vitals: See below Exam: GENERAL: On exam, the patient was sitting in a chair and appeared to be comfortable and in no acute distress. ABDOMEN: Soft, nontender and nondistended. Perc hepatic drains both ss without obvious bile. There are no peritoneal signs or guarding. SKIN: Skin appears to be pink and feels warm to touch. NEUROLOGIC: Patient is awake, alert, and follows commands appropriately. Exam/Review of Systems Vital Signs Vitals Vital Signs Date Time Temp Pulse Resp B/P Pulse Ox O2 Delivery O2 Flow Rate FiO2 01/21/17 07:59 98.5 94 18 108/63 90 01/21/17 07:45 Nasal Cannula 1.0 01/18/17 00:52 27 Intake and Output 01/20/17 01/20/17 01/21/17 15:00 23:00 07:00 Intake Total 550 ml 680 ml 700 ml Output Total 1520 ml 15 ml Balance 550 ml -840 ml 685 ml Results Result Diagram: 01/21/17 0540 01/21/17 0540 RALF MG M.D. Jan 21, 2017 09:32
--- NOTE | 2017-01-21 13:00 | PN ---
DATE: 01/21/2017 SUBJECTIVE DATA: Complains of minimal abdominal pain. Had an episode of nausea and vomiting in the morning. OBJECTIVE DATA: VITAL SIGNS: Temperature 98.5, pulse rate 94, respiratory rate 18, blood pressure 108/63, oxygen saturation 98% on room air. GENERAL: This is a 41-year-old female lying in bed in no apparent distress. HEENT: Head normocephalic and atraumatic. Eyes: Anicteric sclerae. Conjunctivae clear. ENT: Nasal septum is midline. Oral mucosa is moist. NECK: Supple. No JVD noticed. RESPIRATORY: Bilaterally clear to auscultation. No adventitious breath sounds. No use of accessory muscles of respiration. CARDIAC: Regular rate and rhythm. S1 and S2 heard. ABDOMEN: Soft, scaphoid. Two drains are present on the right side of the abdomen. Bowel sounds are positive in all 4 quadrants. GENITOURINARY: Deferred. EXTREMITIES: No cyanosis, no clubbing, no edema. Peripheral pulses are palpable. NEUROLOGIC: The patient is awake, alert, and oriented. Cranial nerves are grossly intact. LABORATORY AND DIAGNOSTIC DATA: WBC 12.7, hemoglobin 8.8, hematocrit 26.9, platelet count 242. Sodium 136, potassium 3.4, chloride 101, carbon dioxide 30 , anion gap 8, BUN 6, creatinine 0.55, glucose 100, calcium 6.9, magnesium 2.0. ASSESSMENT AND PLAN: 1. Sepsis secondary to underlying liver abscess along with gram-positive bacteremia. Status post septic shock. Continue antibiotics as per Infectious Disease. 2. Acute kidney injury. Resolved. Being followed by Nephrology. 3. Hepatic abscess. Status post percutaneous drainage. The patient is being followed by hepatobiliary surgery. 4. Transaminitis without hyperbilirubinemia. Improving. Most probably secondary to underlying liver abscess. 5. Prediabetes. Hemoglobin A1c 6.3. We will monitor random blood glucose closely. If random glucose levels are high, we will start the patient on therapy. 6. Dyslipidemia with high triglycerides and low HDL. We will start the patient on fish oil. 7. Fluid, electrolytes, and nutrition. Regular diet as tolerated. 8. Deep venous thrombosis prophylaxis. Bilateral sequential compression devices. 9. Gastrointestinal prophylaxis. Proton pump inhibitors. Plan. Continue antibiotics as per infectious diseases. Replete potassium. Await clearance from consultants before discharge. Case discussed with Dr. Lewis. DELMY LEWIS MD, AM/W[facility]TON Conf#: [id number] [facility]#: [id number] MTDD
--- NOTE | 2017-01-21 13:41 | PN ---
DATE: 01/21/2017 SUBJECTIVE: The patient is stable. No acute events overnight. No hemoptysis, hematemesis, hematoc hezia. OBJECTIVE: VITAL SIGNS: Blood pressure is 108/62, respiration 18, pulse 74, temperature 98.5. HEENT: Head is normocephalic. Pupils are reactive to light. NECK: Supple. HEART: Regular rate. LUNGS: Show diminished breath sounds at base. ABDOMEN: Soft, nontender to palpation. No rebound or guarding. EXTREMITIES: Negative for clubbing, cyanosis. No edema. DERMATOLOGIC: No rashes. MUSCULOSKELETAL: No joint effusions. NEUROLOGIC: No change in exam. MEDICATIONS: The patient's medications have been reviewed. LABORATORY DATA: Shows sodium 136, potassium 3.4, BUN 6, creatinine 0.55, calcium 6.9. White count 12.7, hemoglobin 8.8, hematocrit 26.9, platelet count is 242. ASSESSMENT AND PLAN: 1. Nonoliguric acute kidney injury. Etiology is secondary to hemodynamics. Renal function has nor malized. Continue current treatment plan, supportive care, renally dose all meds. 2. Hypokalemia secondary to diuretic therapy, hypermagnesemia. We will continue to monitor and rep lete. 3. Hypomagnesemia, improved. Continue magnesium sulfate as needed. 4. Anemia. Continue to monitor hemoglobin and hematocrit levels. 5. Mineral bone disorder. The patient is hypocalcemic, possibly due to recent diuretic therapy, co ntinue to observe. 6. Sepsis secondary to bacteremia, hepatic abscess. The patient is status post ____ placement. Co ntinue to monitor. Continue current antibiotic regimen. 7. Transaminitis. Continue to monitor. 8. Thrombocytopenia, improved. 9. Metabolic acidosis, resolved. Dictated By: WISAM WALLACE/NTS Conf#: [id number] DID#: [id number]
--- NOTE | 2017-01-21 15:25 | PN ---
DATE: 01/21/2017 SUBJECTIVE: Chart reviewed. No significant events noted. Drain in place with minimal drainage. S urgical followup noted. OBJECTIVE: VITAL SIGNS: Blood pressure 108/63, pulse 94, respirations 18, temperature 98.5. Currently on [address] O2 nasal cannula, saturating 96%. HEENT: Pupils are equal and reactive to light. NECK: Supple, no JVD noted, no cervical adenopathy, no carotid bruits heard. LUNGS: Clear to auscultation and percussion. CARDIOVASCULAR: S1, S2 normal. ABDOMEN: Soft, positive bowel sounds. Drain in place. EXTREMITIES: No clubbing, cyanosis, or edema. NEUROLOGICAL: Awake. LABORATORY DATA: WBC 12.7, hemoglobin 8.8, hematocrit 26.9, platelets 242. Sodium 136, potassium 3 .4, chloride 101, CO2 30, BUN 6, creatinine 0.55, glucose 100. IMPRESSION: 1. Status post sepsis. 2. Bacteremia. 3. Hepatic abscesses status post drainage. 4. Mild hypokalemia. 5. Status post acute kidney injury. PLAN: 1. Surgical followup noted. 2. Continue antibiotics. 3. Continue drainage. 4. Potassium supplementation. 5. Nephrology followup. 6. Hopefully discharge home soon after drains are removed and the patient can be placed on oral ant ibiotics. Dictated By: EUGENIA ISAAC MD, MA/W[facility] Conf#: [id number] DID#: [id number]
[2017-01-21] MEDS: CEFTRIAXONE 1 GM/50 ML (PMX) 50 ML IVPB SCH (17:48)
--- NOTE | 2017-01-21 18:27 | PN ---
DATE: 01/21/2017 SUBJECTIVE: No acute changes. The patient is alert, feels much better. Looks comfortable. No fevers. LABORATORY DATA: WBC decreased to 12.7, no shift, no bands. BUN 6, creatinine 0.55. MICROBIOLOGY: Blood culture growing alpha hemolytic strep species. Repeat blood cultures negative. ANTIMICROBIALS: The patient is on Zosyn. INDWELLINGS: PICC line and intraabdominal drainage catheters. PHYSICAL EXAMINATION: GENERAL: Well-developed, well-nourished, middle-aged woman who is awake, in no distress. HEENT: Head atraumatic, normocephalic. Sclerae anicteric. Buccal mucosa dry. NECK: Supple. CHEST: Rise symmetrical. Breath sounds clear. HEART: S1, S2. ABDOMEN: Soft, bowel sounds present. EXTREMITIES: Without cyanosis. ASSESSMENT: 1. Resolving sepsis. 2. Streptococcal bacteremia with repeat blood cultures negative. 3. Status post CT-guided liver abscess drainage. 4. Anemia. 5. Status post acute kidney injury. PLAN: We are going to change antibiotics to IV Rocephin. Continue present care. The patient will need to complete 2 weeks IV antibiotics to complete treatment for bacteremia, after which we may downgrade her to p.o., as per surgical recommendations, possibly clindamycin. Dictated By: USHA ALVARES WEATHER ALGORITHM SCIENTIST for ANDRA HERNANDEZ MD NI/NTS Conf#: [id number] DID#: [id number] CC: ZAYRA WATT MD;*EndCC* MTDD
[2017-01-21 20:00] VITALS: BP 109/59; RESP 16
[2017-01-21] MEDS: FISH OIL 1,000 MG CAP PO SCH (21:25)
[2017-01-22] MEDS: PANTOPRAZOLE (EC) 40 MG TAB PO SCH (05:40)
[2017-01-22 06:33] LABS: MAGNESIUM 1.9 mg/dl (1.7-2.5); PHOSPHORUS 2.9 mg/dl (2.5-4.9)
[2017-01-22 07:08] LABS: ADD SCAN DIFF NO
[2017-01-22 07:11] LABS: BASOPHILS % 0.2 % (0.0-2.0); EOSINOPHILS # 0.1 10^3/ul (0.0-0.5); EOSINOPHILS % 0.3 % (0.0-7.0); HEMATOCRIT 26.9 % (37.0-47.0); HEMOGLOBIN 8.9 g/dl (12.0-16.0); LYMPHOCYTES % 13.6 % (15.0-51.0); MEAN CORPUSCULAR HEMOGLOBIN 27.2 pg (29.0-33.0); MEAN CORPUSCULAR HGB CONC 33.1 g/dl (32.0-37.0); MEAN CORPUSCULAR VOLUME 82.3 fl (82.0-101.0); MONOCYTE # 0.8 10^3/ul (0.3-0.9); MONOCYTES % 5.1 % (0.0-11.0); NEUTROPHIL # 11.7 10^3/ul (1.6-7.5); NEUTROPHILS % 78.8 % (39.0-77.0); PLATELET COUNT 399 10^3/UL (140-415); RED BLOOD COUNT 3.27 10^6/ul (4.20-5.40); RED CELL DISTRIBUTION WIDTH 15.9 % (11.5-14.5); WHITE BLOOD COUNT 14.8 10^3/ul (4.8-10.8)
[2017-01-22 07:22] LABS: CALCIUM 7.8 mg/dl (8.4-10.2); CREATININE 0.51 mg/dl (0.44-1.00); POTASSIUM 4.6 mmol/L (3.5-5.1)
[2017-01-22 07:32] VITALS: BP 111/64; RESP 18
[2017-01-22] MEDS: FISH OIL 1,000 MG CAP PO SCH ×2 (08:42→20:47)
--- NOTE | 2017-01-22 10:22 | PN ---
Date/Time of Note Date/Time of Note DATE: 01/22/17 TIME: 10:22 Assessment/Plan VTE Prophylaxis VTE Prophylaxis Intervention: SCD's Lines/Catheters IV [facility] PICC Line Central line still needed: Yes Urinary Cath still in place: No Assessment/Plan Chief Complaint/Hosp Course 1. Sepsis secondary to underlying liver abscess along with gram-positive bacteremia. Status post septic shock. Continue antibiotics as per Infectious Disease. 2. Acute kidney injury. Resolved. Being followed by Nephrology. 3. Hepatic abscess. Status post percutaneous drainage. The patient is being followed by hepatobiliary surgery. 4. Transaminitis without hyperbilirubinemia. Improving. Most probably secondary to underlying liver abscess. 5. Prediabetes. Hemoglobin A1c 6.3. We will monitor random blood glucose closely. If random glucose levels are high, we will start the patient on therapy. 6. Dyslipidemia with high triglycerides and low HDL. Continue fish oil. 7. Fluid, electrolytes, and nutrition. Regular diet as tolerated. 8. Deep venous thrombosis prophylaxis. Bilateral sequential compression devices. 9. Gastrointestinal prophylaxis. Proton pump inhibitors. PLAN: Continue antibiotics as per infectious diseases. Await clearance from consultants before discharge. Case discussed with Dr. King. Problems: Subjective 24 Hr Interval Summary Free Text/Dictation Complains of frequent loose stools. No abdominal pain. No nausea or vomiting. Exam/Review of Systems Vital Signs Vitals Vital Signs Date Time Temp Pulse Resp B/P Pulse Ox O2 Delivery O2 Flow Rate FiO2 01/22/17 08:00 Nasal Cannula 1.0 01/22/17 07:32 98.6 87 18 111/64 96 Intake and Output 01/21/17 01/21/17 01/22/17 15:00 23:00 07:00 Intake Total 100 ml 630 ml 360 ml Output Total 5 ml 1800 ml Balance 95 ml 630 ml -1440 ml Exam GENERAL: This is a 41-year-old female lying in bed in no apparent distress. HEENT: Head normocephalic and atraumatic. Eyes: Anicteric sclerae. Conjunctivae clear. ENT: Nasal septum is midline. Oral mucosa is moist. NECK: Supple. No JVD noticed. RESPIRATORY: Bilaterally clear to auscultation. No adventitious breath sounds. No use of accessory muscles of respiration. CARDIAC: Regular rate and rhythm. S1 and S2 heard. ABDOMEN: Soft, scaphoid. Two drains are present on the right side of the abdomen. Bowel sounds are positive in all 4 quadrants. GENITOURINARY: Deferred. EXTREMITIES: No cyanosis, no clubbing, no edema. Peripheral pulses are palpable. NEUROLOGIC: The patient is awake, alert, and oriented. Cranial nerves are grossly intact. Results Result Diagram: 01/22/17 0537 01/22/17 0537 Results 24 hrs Laboratory Tests Test 01/22/17 05:37 White Blood Count 14.8 H Red Blood Count 3.27 L Hemoglobin 8.9 L Hematocrit 26.9 L Mean Corpuscular Volume 82.3 Mean Corpuscular Hemoglobin 27.2 L Mean Corpuscular Hemoglobin Concent 33.1 Red Cell Distribution Width 15.9 H Platelet Count 399 # Mean Platelet Volume 10.0 Neutrophils % 78.8 H Lymphocytes % 13.6 L Monocytes % 5.1 Eosinophils % 0.3 Basophils % 0.2 Nucleated Red Blood Cells % 0.0 Neutrophils # 11.7 H Lymphocytes # 2.0 Monocytes # 0.8 Eosinophils # 0.1 Basophils # 0.0 Nucleated Red Blood Cells # 0.0 Sodium Level 135 Potassium Level 4.6 Chloride Level 104 Carbon Dioxide Level 24 Anion Gap 12 Blood Urea Nitrogen 5 L Creatinine 0.51 Glucose Level 88 Calcium Level 7.8 L Phosphorus Level 2.9 Magnesium Level 1.9 Medications Medications Current Medications Ondansetron HCl (Zofran Inj) 4 mg Q6H PRN IV NAUSEA AND/OR VOMITING Last administered on 01/21/17 17:25; Admin Dose 4 MG; Start 01/17/17 at 00:30 Morphine Sulfate (morphine) 2 mg Q4H PRN IV SEVERE PAIN LEVEL 7-10 Last administered on 01/21/17 08:43; Admin Dose 2 MG; Start 01/17/17 at 00:30 IV Flush (NS 10 ml) 10 ml TID IV Last administered on 01/22/17 08:42; Admin Dose 10 ML; Start 01/18/17 at 13:00 Acetaminophen/ Hydrocodone Bitart ([place] (7.5-325)) 1 tab Q4H PRN PO PAIN LEVEL 8-10 Last administered on 01/21/17 05:02; Admin Dose 1 TAB; Start at 12:30 Pantoprazole (Protonix Tab) 40 mg DAILY@06 PO Last administered on 01/22/17 05 :40; Admin Dose 40 MG; Start 01/20/17 at 06:00 IV Flush (NS 10 ml) 10 ml PRN PRN IV FLUSH LINE; Start 01/20/17 at 07:00 IV Flush (NS 10 ml) 10 ml PRN PRN IV FLUSH LINE; Start 01/20/17 at 07:00 IV Flush (NS 10 ml) 20 ml PRN PRN IV FLUSH LINE; Start 01/20/17 at 07:00 Heparin Sodium (Porcine) (Heparin Flush (10 Units/ml)) 50 unit PRN PRN IV LUMENS NOT IN USE; Start 01/20/17 at 07:00 Acetaminophen (Tylenol Tab) 650 mg Q4H PRN PO MILD PAIN LEVEL 1-3; Start at 07:00 Fish Oil 2000 mg 2,000 mg BID PO Last administered on 01/22/17 08:42; Admin Dose 2,000 MG; Start 01/21/17 at 21:00 Ceftriaxone Sodium (Rocephin) 50 ml @ 100 mls/hr Q24H IVPB Last administered on 01/21/17 17:48; Admin Dose 100 MLS/HR; Start 01/21/17 at 17:30 DELMY VILLATORO NP Jan 22, 2017 10:22
--- NOTE | 2017-01-22 12:12 | PN ---
DATE: 01/22/2017 SUBJECTIVE: The patient is stable, no acute events overnight. No fevers, chills, nausea, vomiting. OBJECTIVE: VITAL SIGNS: Blood pressure is 111/64, respiration 18, pulse 86, temperature 98.6. HEENT: Head is normocephalic. NECK: Supple. HEART: Regular rate. LUNGS: Show diminished breath sounds at base. ABDOMEN: Soft, nontender to palpation without rebound or guarding. EXTREMITIES: Negative for clubbing, cyanosis, no edema. DERMATOLOGIC: No rashes. MUSCULOSKELETAL: No joint effusions. NEUROLOGIC: No change in exam. MEDICATIONS: The patient's medications have been reviewed. LABORATORY DATA: Shows sodium 135, potassium 4.6, chloride 104, BUN 5, creatinine 0.51. White coun t 14.8, hemoglobin 8.9, hematocrit 26.9, platelet count is 399. ASSESSMENT AND PLAN: 1. Nonoliguric acute kidney injury secondary to hemodynamics. Renal function has normalized. Cont inue current treatment plan, supportive care. 2. Hypokalemia, improved. Continue to monitor. 3. Hypomagnesemia, improved. 4. Anemia. Continue to monitor hemoglobin and hematocrit levels. 5. Mineral bone disorder. Continue to monitor calcium and phosphorus levels. 6. Sepsis secondary to bacteremia . The patient is status post SAGE drain. Continue to monitor . Continue antibiotics. Follow up with the hepatobiliary service. 7. Transaminitis. Continue to monitor. 8. Thrombocytopenia, improved. 9. Metabolic acidosis, resolved. Dictated By: WISAM WALLACE/[place] Conf#: [id number] DID#: [id number]
--- NOTE | 2017-01-22 13:40 | CONS ---
Date/Time of Note Date/Time of Note DATE: 01/22/17 TIME: 13:37 Assessment/Plan Assessment/Plan Chief Complaint/Hosp Course SUBJECTIVE: No acute changes. The patient is alert, c/o loose stools. Looks comfortable. No fevers. MICROBIOLOGY: Blood culture growing alpha hemolytic strep species. Repeat blood cultures negative. ANTIMICROBIALS: Rocephin. INDWELLINGS: PICC line and intraabdominal drainage catheters. PHYSICAL EXAMINATION: GENERAL: Well-developed, well-nourished, middle-aged woman who is awake, in no distress. HEENT: Head atraumatic, normocephalic. Sclerae anicteric. Buccal mucosa dry. NECK: Supple. CHEST: Rise symmetrical. Breath sounds clear. HEART: S1, S2. ABDOMEN: Soft, bowel sounds present. EXTREMITIES: Without cyanosis. ASSESSMENT: 1. Resolving sepsis. 2. Streptococcal bacteremia with repeat blood cultures negative. 3. Status post CT-guided liver abscess drainage. 4. Anemia. 5. Status post acute kidney injury. PLAN: Stable, will send stool for C dif, continue IV abx for 2 weeks, possibly downgrade to po after completion if stable. staff/family Problems: Consultation Date/Type/Reason Admit Date/Time Jan 17, 2017 at 00:20 Initial Consult Date 01/18/17 Type of Consultation: ID Exam/Review of Systems Vital Signs Vitals Vital Signs Date Time Temp Pulse Resp B/P Pulse Ox O2 Delivery O2 Flow Rate FiO2 01/22/17 08:00 Nasal Cannula 1.0 01/22/17 07:32 98.6 87 18 111/64 96 Intake and Output 01/21/17 01/21/17 01/22/17 15:00 23:00 07:00 Intake Total 100 ml 630 ml 360 ml Output Total 5 ml 1800 ml Balance 95 ml 630 ml -1440 ml Results Result Diagram: 01/22/17 0537 01/22/17 0537 Results 24 hrs Laboratory Tests Test 01/22/17 05:37 White Blood Count 14.8 H Red Blood Count 3.27 L Hemoglobin 8.9 L Hematocrit 26.9 L Mean Corpuscular Volume 82.3 Mean Corpuscular Hemoglobin 27.2 L Mean Corpuscular Hemoglobin Concent 33.1 Red Cell Distribution Width 15.9 H Platelet Count 399 # Mean Platelet Volume 10.0 Neutrophils % 78.8 H Lymphocytes % 13.6 L Monocytes % 5.1 Eosinophils % 0.3 Basophils % 0.2 Nucleated Red Blood Cells % 0.0 Neutrophils # 11.7 H Lymphocytes # 2.0 Monocytes # 0.8 Eosinophils # 0.1 Basophils # 0.0 Nucleated Red Blood Cells # 0.0 Sodium Level 135 Potassium Level 4.6 Chloride Level 104 Carbon Dioxide Level 24 Anion Gap 12 Blood Urea Nitrogen 5 L Creatinine 0.51 Glucose Level 88 Calcium Level 7.8 L Phosphorus Level 2.9 Magnesium Level 1.9 Medications Medications Current Medications Ondansetron HCl (Zofran Inj) 4 mg Q6H PRN IV NAUSEA AND/OR VOMITING Last administered on 01/21/17 17:25; Admin Dose 4 MG; Start 01/17/17 at 00:30 Morphine Sulfate (morphine) 2 mg Q4H PRN IV SEVERE PAIN LEVEL 7-10 Last administered on 01/21/17 08:43; Admin Dose 2 MG; Start 01/17/17 at 00:30 IV Flush (NS 10 ml) 10 ml TID IV Last administered on 01/22/17 13:28; Admin Dose 10 ML; Start 01/18/17 at 13:00 Acetaminophen/ Hydrocodone Bitart ([place] (7.5-325)) 1 tab Q4H PRN PO PAIN LEVEL 8-10 Last administered on 01/21/17 05:02; Admin Dose 1 TAB; Start at 12:30 Pantoprazole (Protonix Tab) 40 mg DAILY@06 PO Last administered on 01/22/17 05 :40; Admin Dose 40 MG; Start 01/20/17 at 06:00 IV Flush (NS 10 ml) 10 ml PRN PRN IV FLUSH LINE; Start 01/20/17 at 07:00 IV Flush (NS 10 ml) 10 ml PRN PRN IV FLUSH LINE; Start 01/20/17 at 07:00 IV Flush (NS 10 ml) 20 ml PRN PRN IV FLUSH LINE; Start 01/20/17 at 07:00 Heparin Sodium (Porcine) (Heparin Flush (10 Units/ml)) 50 unit PRN PRN IV LUMENS NOT IN USE; Start 01/20/17 at 07:00 Acetaminophen (Tylenol Tab) 650 mg Q4H PRN PO MILD PAIN LEVEL 1-3; Start at 07:00 Fish Oil 2000 mg 2,000 mg BID PO Last administered on 01/22/17 08:42; Admin Dose 2,000 MG; Start 01/21/17 at 21:00 Ceftriaxone Sodium (Rocephin) 50 ml @ 100 mls/hr Q24H IVPB Last administered on 01/21/17 17:48; Admin Dose 100 MLS/HR; Start 01/21/17 at 17:30 USHA ALVARES NP Jan 22, 2017 13:40
[2017-01-22] MEDS: CEFTRIAXONE 1 GM/50 ML (PMX) 50 ML IVPB SCH (17:34)
[2017-01-22 20:00] VITALS: BP 113/61; RESP 18
[2017-01-23] MEDS: PANTOPRAZOLE (EC) 40 MG TAB PO SCH (05:42)
[2017-01-23 05:44] LABS: ADD SCAN DIFF NO
[2017-01-23 05:52] LABS: BASOPHILS % 0.2 % (0.0-2.0); EOSINOPHILS # 0.1 10^3/ul (0.0-0.5); EOSINOPHILS % 0.5 % (0.0-7.0); HEMATOCRIT 27.2 % (37.0-47.0); HEMOGLOBIN 9.2 g/dl (12.0-16.0); LYMPHOCYTES # 1.8 10^3/ul (0.8-2.9); LYMPHOCYTES % 13.5 % (15.0-51.0); MEAN CORPUSCULAR HEMOGLOBIN 27.8 pg (29.0-33.0); MEAN CORPUSCULAR HGB CONC 33.8 g/dl (32.0-37.0); MEAN CORPUSCULAR VOLUME 82.2 fl (82.0-101.0); MEAN PLATELET VOLUME 9.4 fl (7.4-10.4); MONOCYTE # 0.7 10^3/ul (0.3-0.9); MONOCYTES % 5.2 % (0.0-11.0); NEUTROPHIL # 10.4 10^3/ul (1.6-7.5); NEUTROPHILS % 78.6 % (39.0-77.0); PLATELET COUNT 545 10^3/UL (140-415); RED BLOOD COUNT 3.31 10^6/ul (4.20-5.40); RED CELL DISTRIBUTION WIDTH 15.9 % (11.5-14.5); WHITE BLOOD COUNT 13.2 10^3/ul (4.8-10.8)
[2017-01-23 06:10] LABS: CALCIUM 8.4 mg/dl (8.4-10.2); CREATININE 0.53 mg/dl (0.44-1.00); POTASSIUM 4.1 mmol/L (3.5-5.1)
--- NOTE | 2017-01-23 07:42 | PN ---
Date/Time of Note Date/Time of Note DATE: 01/22/17 TIME: 17:32 Assessment/Plan Lines/Catheters IV Catheter Type (from Nrs): PICC Line Esquivel in Place (from Nrs): No Assessment/Plan Assessment/Plan [facility] Progress Note (Late Entry) Date of Service: 01/22/17 Today's Impression & Plan: Overall stable and continues to improve. No indication for acute surgical intervention. Liver abscesses appear well controlled with the drains and no bile communication seen. Minimal output and ss. Will likely be able to d/c in a few days, if not during this admission (will d/w IR). Hoping for d/c home in 24- 48 hours with oral conversion of antimicrobials. With above assessment, I've recommended the following for today: 1. Keep inhouse. 2. Targeted downstaging of antimicrobials per Dr. Herrmann with oral conversion as soon as possible 3. Follow up with cultures results and sensitivities. 4. Cont regular diet. 5. Possible need for further endoscopic evaluation in search of source of infection (no current obvious source found). 6. Evaluation for diabetes. 7. Increase activity 8. I'll discuss possibility of d/c'ing hepatic drains during this admission with Dr. Jefferson in IR Thank you again for your great care of this very pleasant patient and wonderful family. If there are any questions, please feel free to call me at [phone]. TOTAL VISIT TIME: 20 minutes of which more than half was spent in [id number] discussion with the patient, possibly including family, as well as coordination of care between multiple physicians and providers. Disclaimer: Inadvertent spelling or grammatical errors are likely due to EHR/ dictation software use and do not reflect on the overall quality of patient care. Updated Clinical Summary: The patient is a very pleasant 41-year-old lady with comorbidities including BMI 25.4 who presented through the emergency department at [facility] on 01/16/2017 with multiple hepatic abscesses, status post percutaneous drainage procedure 01/17/17 at [facility]. COMORBIDITIES: 1. BMI 25.4. 2. Possible prediabetes given the elevated hemoglobin A1c 3. Sepsis with two liver abscesses in the right lobe of the liver, status post percutaneous drainage procedure 01/17/17 at [facility]. Subjective: No major events or complaints; no abd pain and under control with medications; no n/v/d; no sob or cp; + bowel activity (diarrhea); minimal activity; put on contact precautions (? due to diarrhea) Objective: Vitals: See below Exam: GENERAL: On exam, the patient was layin in bed and appeared to be comfortable and in no acute distress. ABDOMEN: Soft, nontender and nondistended. Perc hepatic drains both ss without obvious bile and minimal outputs. There are no peritoneal signs or guarding. SKIN: Skin appears to be pink and feels warm to touch. NEUROLOGIC: Patient is awake, alert, and follows commands appropriately. Exam/Review of Systems Vital Signs Vitals Vital Signs Date Time Temp Pulse Resp B/P Pulse Ox O2 Delivery O2 Flow Rate FiO2 01/22/17 20:00 98.4 89 18 113/61 95 01/22/17 08:00 Nasal Cannula 1.0 Intake and Output 01/22/17 01/22/17 01/23/17 15:00 23:00 07:00 Intake Total 810 ml Output Total 1305 ml 0 ml Balance -495 ml 0 ml Results Result Diagram: 01/23/17 0507 01/23/17 0507 RALF MG M.D. Jan 23, 2017 07:42
[2017-01-23 08:20] VITALS: BP 104/58; RESP 20
[2017-01-23] MEDS: FISH OIL 1,000 MG CAP PO SCH ×2 (09:31→21:24)
--- NOTE | 2017-01-23 12:07 | PN ---
Date/Time of Note Date/Time of Note DATE: 01/23/17 TIME: 12:05 Assessment/Plan VTE Prophylaxis VTE Prophylaxis Intervention: SCD's Lines/Catheters IV [facility]ter Type (from [facility]): PICC Line Central line still needed: Yes Urinary Cath still in place: No Assessment/Plan Chief Complaint/Hosp Course 1. Sepsis secondary to underlying liver abscess along with gram-positive bacteremia. Status post septic shock. Continue antibiotics as per Infectious Disease. 2. Acute kidney injury. Resolved. Being followed by Nephrology. 3. Hepatic abscess. Status post percutaneous drainage. The patient is being followed by hepatobiliary surgery. 4. Transaminitis without hyperbilirubinemia. Improving. Most probably secondary to underlying liver abscess. 5. Prediabetes. Hemoglobin A1c 6.3. We will monitor random blood glucose closely. If random glucose levels are high, we will start the patient on therapy. 6. Dyslipidemia with high triglycerides and low HDL. Continue fish oil. 7. Fluid, electrolytes, and nutrition. Regular diet as tolerated. 8. Deep venous thrombosis prophylaxis. Bilateral sequential compression devices. 9. Gastrointestinal prophylaxis. Proton pump inhibitors. PLAN: Continue antibiotics as per infectious diseases. Add probiotics. Await clearance from consultants before discharge. Case discussed with Dr. King. Problems: Subjective 24 Hr Interval Summary Free Text/Dictation Continues to have diarrhea. Denies any abdominal pain. Denies any nausea vomiting. Exam/Review of Systems Vital Signs Vitals Vital Signs Date Time Temp Pulse Resp B/P Pulse Ox O2 Delivery O2 Flow Rate FiO2 01/23/17 08:20 98.7 85 20 104/58 100 01/22/17 08:00 Nasal Cannula 1.0 Intake and Output 01/22/17 01/22/17 01/23/17 15:00 23:00 07:00 Intake Total 810 ml 360 ml Output Total 1305 ml 800 ml Balance -495 ml -440 ml Exam GENERAL: This is a 41-year-old female lying in bed in no apparent distress. HEENT: Head normocephalic and atraumatic. Eyes: Anicteric sclerae. Conjunctivae clear. ENT: Nasal septum is midline. Oral mucosa is moist. NECK: Supple. No JVD noticed. RESPIRATORY: Bilaterally clear to auscultation. No adventitious breath sounds. No use of accessory muscles of respiration. CARDIAC: Regular rate and rhythm. S1 and S2 heard. ABDOMEN: Soft, scaphoid. Two drains are present on the right side of the abdomen. Bowel sounds are positive in all 4 quadrants. GENITOURINARY: Deferred. EXTREMITIES: No cyanosis, no clubbing, no edema. Peripheral pulses are palpable. NEUROLOGIC: The patient is awake, alert, and oriented. Cranial nerves are grossly intact. Results Result Diagram: 01/23/17 0507 01/23/17 0507 Results 24 hrs Laboratory Tests Test 01/23/17 05:07 White Blood Count 13.2 H Red Blood Count 3.31 L Hemoglobin 9.2 L Hematocrit 27.2 L Mean Corpuscular Volume 82.2 Mean Corpuscular Hemoglobin 27.8 L Mean Corpuscular Hemoglobin Concent 33.8 Red Cell Distribution Width 15.9 H Platelet Count 545 #H Mean Platelet Volume 9.4 Neutrophils % 78.6 H Lymphocytes % 13.5 L Monocytes % 5.2 Eosinophils % 0.5 Basophils % 0.2 Nucleated Red Blood Cells % 0.0 Neutrophils # 10.4 H Lymphocytes # 1.8 Monocytes # 0.7 Eosinophils # 0.1 Basophils # 0.0 Nucleated Red Blood Cells # 0.0 Sodium Level 136 Potassium Level 4.1 Chloride Level 104 Carbon Dioxide Level 25 Anion Gap 11 Blood Urea Nitrogen 6 L Creatinine 0.53 Glucose Level 98 Calcium Level 8.4 Phosphorus Level 4.0 Magnesium Level 2.0 Medications Medications Current Medications Ondansetron HCl (Zofran Inj) 4 mg Q6H PRN IV NAUSEA AND/OR VOMITING Last administered on 01/21/17 17:25; Admin Dose 4 MG; Start 01/17/17 at 00:30 Morphine Sulfate (morphine) 2 mg Q4H PRN IV SEVERE PAIN LEVEL 7-10 Last administered on 01/21/17 08:43; Admin Dose 2 MG; Start 01/17/17 at 00:30 IV Flush (NS 10 ml) 10 ml TID IV Last administered on 01/23/17 09:31; Admin Dose 10 ML; Start 01/18/17 at 13:00 Acetaminophen/ Hydrocodone Bitart ([place] (7.5-325)) 1 tab Q4H PRN PO PAIN LEVEL 8-10 Last administered on 01/21/17 05:02; Admin Dose 1 TAB; Start at 12:30 Pantoprazole (Protonix Tab) 40 mg DAILY@06 PO Last administered on 01/23/17 05 :42; Admin Dose 40 MG; Start 01/20/17 at 06:00 IV Flush (NS 10 ml) 10 ml PRN PRN IV FLUSH LINE; Start 01/20/17 at 07:00 IV Flush (NS 10 ml) 10 ml PRN PRN IV FLUSH LINE; Start 01/20/17 at 07:00 IV Flush (NS 10 ml) 20 ml PRN PRN IV FLUSH LINE; Start 01/20/17 at 07:00 Heparin Sodium (Porcine) (Heparin Flush (10 Units/ml)) 50 unit PRN PRN IV LUMENS NOT IN USE; Start 01/20/17 at 07:00 Acetaminophen (Tylenol Tab) 650 mg Q4H PRN PO MILD PAIN LEVEL 1-3; Start at 07:00 Fish Oil 2000 mg 2,000 mg BID PO Last administered on 01/23/17 09:31; Admin Dose 2,000 MG; Start 01/21/17 at 21:00 Ceftriaxone Sodium (Rocephin) 50 ml @ 100 mls/hr Q24H IVPB Last administered on 01/22/17 17:34; Admin Dose 100 MLS/HR; Start 01/21/17 at 17:30 DELMY VILLATORO NP Jan 23, 2017 12:07
--- NOTE | 2017-01-23 13:15 | CONS ---
Date/Time of Note Date/Time of Note DATE: 01/23/17 TIME: 13:13 Assessment/Plan Assessment/Plan Chief Complaint/Hosp Course SUBJECTIVE: No acute changes. The patient is alert. Looks comfortable. No fevers. MICROBIOLOGY: Blood culture growing alpha hemolytic strep species. Repeat blood cultures negative. C dif negative ANTIMICROBIALS: Rocephin. INDWELLINGS: PICC line and intraabdominal drainage catheters. PHYSICAL EXAMINATION: GENERAL: Well-developed, well-nourished, middle-aged woman who is awake, in no distress. HEENT: Head atraumatic, normocephalic. Sclerae anicteric. Buccal mucosa dry. NECK: Supple. CHEST: Rise symmetrical. Breath sounds clear. HEART: S1, S2. ABDOMEN: Soft, bowel sounds present. EXTREMITIES: Without cyanosis. ASSESSMENT: 1. Resolving sepsis. 2. Streptococcal bacteremia 2 to #3 with repeat blood cultures negative. 3. Status post CT-guided liver abscess drainage. 4. Anemia. 5. Status post acute kidney injury. PLAN: Stable, continue IV abx till February 01, f/u surgical rec-s. staff Problems: Consultation Date/Type/Reason Admit Date/Time Jan 17, 2017 at 00:20 Initial Consult Date 01/18/17 Type of Consultation: ID Exam/Review of Systems Vital Signs Vitals Vital Signs Date Time Temp Pulse Resp B/P Pulse Ox O2 Delivery O2 Flow Rate FiO2 01/23/17 08:20 98.7 85 20 104/58 100 01/22/17 08:00 Nasal Cannula 1.0 Intake and Output 01/22/17 01/22/17 01/23/17 15:00 23:00 07:00 Intake Total 810 ml 360 ml Output Total 1305 ml 800 ml Balance -495 ml -440 ml Results Result Diagram: 01/23/17 0507 01/23/17 0507 Results 24 hrs Laboratory Tests Test 01/23/17 05:07 White Blood Count 13.2 H Red Blood Count 3.31 L Hemoglobin 9.2 L Hematocrit 27.2 L Mean Corpuscular Volume 82.2 Mean Corpuscular Hemoglobin 27.8 L Mean Corpuscular Hemoglobin Concent 33.8 Red Cell Distribution Width 15.9 H Platelet Count 545 #H Mean Platelet Volume 9.4 Neutrophils % 78.6 H Lymphocytes % 13.5 L Monocytes % 5.2 Eosinophils % 0.5 Basophils % 0.2 Nucleated Red Blood Cells % 0.0 Neutrophils # 10.4 H Lymphocytes # 1.8 Monocytes # 0.7 Eosinophils # 0.1 Basophils # 0.0 Nucleated Red Blood Cells # 0.0 Sodium Level 136 Potassium Level 4.1 Chloride Level 104 Carbon Dioxide Level 25 Anion Gap 11 Blood Urea Nitrogen 6 L Creatinine 0.53 Glucose Level 98 Calcium Level 8.4 Phosphorus Level 4.0 Magnesium Level 2.0 Medications Medications Current Medications Ondansetron HCl (Zofran Inj) 4 mg Q6H PRN IV NAUSEA AND/OR VOMITING Last administered on 01/21/17 17:25; Admin Dose 4 MG; Start 01/17/17 at 00:30 Morphine Sulfate (morphine) 2 mg Q4H PRN IV SEVERE PAIN LEVEL 7-10 Last administered on 01/21/17 08:43; Admin Dose 2 MG; Start 01/17/17 at 00:30 IV Flush (NS 10 ml) 10 ml TID IV Last administered on 01/23/17 09:31; Admin Dose 10 ML; Start 01/18/17 at 13:00 Acetaminophen/ Hydrocodone Bitart ([place] (7.5-325)) 1 tab Q4H PRN PO PAIN LEVEL 8-10 Last administered on 01/21/17 05:02; Admin Dose 1 TAB; Start at 12:30 Pantoprazole (Protonix Tab) 40 mg DAILY@06 PO Last administered on 01/23/17 05 :42; Admin Dose 40 MG; Start 01/20/17 at 06:00 IV Flush (NS 10 ml) 10 ml PRN PRN IV FLUSH LINE; Start 01/20/17 at 07:00 IV Flush (NS 10 ml) 10 ml PRN PRN IV FLUSH LINE; Start 01/20/17 at 07:00 IV Flush (NS 10 ml) 20 ml PRN PRN IV FLUSH LINE; Start 01/20/17 at 07:00 Heparin Sodium (Porcine) (Heparin Flush (10 Units/ml)) 50 unit PRN PRN IV LUMENS NOT IN USE; Start 01/20/17 at 07:00 Acetaminophen (Tylenol Tab) 650 mg Q4H PRN PO MILD PAIN LEVEL 1-3; Start at 07:00 Fish Oil 2000 mg 2,000 mg BID PO Last administered on 01/23/17 09:31; Admin Dose 2,000 MG; Start 01/21/17 at 21:00 Ceftriaxone Sodium (Rocephin) 50 ml @ 100 mls/hr Q24H IVPB Last administered on 01/22/17 17:34; Admin Dose 100 MLS/HR; Start 01/21/17 at 17:30 USHA ALVARES NP Jan 23, 2017 13:14
[2017-01-23] MEDS: HYDROCODONE/APAP (7.5/325) TAB PO PRN (15:08)
--- NOTE | 2017-01-23 16:07 | PN ---
Date/Time of Note Date/Time of Note DATE: 01/23/17 TIME: 16:05 Assessment/Plan Lines/Catheters IV Catheter Type (from [facility]): PICC Line Urinary Cath still in place: No Assessment/Plan Assessment/Plan 1. Nonoliguric acute kidney injury secondary to hemodynamics. Renal function has normalized. Continue current treatment plan, supportive care. 2. Hypokalemia, improved. Continue to monitor. 3. Hypomagnesemia, improved. 4. Anemia. Continue to monitor hemoglobin and hematocrit levels. 5. Mineral bone disorder. Continue to monitor calcium and phosphorus levels. 6. Sepsis secondary to bacteremia . The patient is status post SAGE drain. Continue to monitor. Continue antibiotics. Follow up with the hepatobiliary service. 7. Transaminitis. Continue to monitor. 8. Thrombocytopenia, improved. 9. Metabolic acidosis, resolved. Subjective 24 Hr Interval Summary Free Text/Dictation he patient is stable, no acute events overnight. No fevers, chills, nausea, vomiting. Exam/Review of Systems Vital Signs Vitals Vital Signs Date Time Temp Pulse Resp B/P Pulse Ox O2 Delivery O2 Flow Rate FiO2 01/23/17 08:20 98.7 85 20 104/58 100 01/22/17 08:00 Nasal Cannula 1.0 Intake and Output 01/22/17 01/22/17 01/23/17 15:00 23:00 07:00 Intake Total 810 ml 360 ml Output Total 1305 ml 800 ml Balance -495 ml -440 ml Exam HEENT: Head is normocephalic. NECK: Supple. HEART: Regular rate. LUNGS: Show diminished breath sounds at base. ABDOMEN: Soft, nontender to palpation without rebound or guarding. EXTREMITIES: Negative for clubbing, cyanosis, no edema. DERMATOLOGIC: No rashes. MUSCULOSKELETAL: No joint effusions. NEUROLOGIC: No change in exam. Results Result Diagram: 01/23/17 0507 01/23/17 0507 Results 24 hrs Laboratory Tests Test 01/23/17 05:07 White Blood Count 13.2 H Red Blood Count 3.31 L Hemoglobin 9.2 L Hematocrit 27.2 L Mean Corpuscular Volume 82.2 Mean Corpuscular Hemoglobin 27.8 L Mean Corpuscular Hemoglobin Concent 33.8 Red Cell Distribution Width 15.9 H Platelet Count 545 #H Mean Platelet Volume 9.4 Neutrophils % 78.6 H Lymphocytes % 13.5 L Monocytes % 5.2 Eosinophils % 0.5 Basophils % 0.2 Nucleated Red Blood Cells % 0.0 Neutrophils # 10.4 H Lymphocytes # 1.8 Monocytes # 0.7 Eosinophils # 0.1 Basophils # 0.0 Nucleated Red Blood Cells # 0.0 Sodium Level 136 Potassium Level 4.1 Chloride Level 104 Carbon Dioxide Level 25 Anion Gap 11 Blood Urea Nitrogen 6 L Creatinine 0.53 Glucose Level 98 Calcium Level 8.4 Phosphorus Level 4.0 Magnesium Level 2.0 Medications Medications Current Medications Ondansetron HCl (Zofran Inj) 4 mg Q6H PRN IV NAUSEA AND/OR VOMITING Last administered on 01/21/17 17:25; Admin Dose 4 MG; Start 01/17/17 at 00:30 Morphine Sulfate (morphine) 2 mg Q4H PRN IV SEVERE PAIN LEVEL 7-10 Last administered on 01/21/17 08:43; Admin Dose 2 MG; Start 01/17/17 at 00:30 IV Flush (NS 10 ml) 10 ml TID IV Last administered on 01/23/17 13:48; Admin Dose 10 ML; Start 01/18/17 at 13:00 Acetaminophen/ Hydrocodone Bitart ([place] (7.5-325)) 1 tab Q4H PRN PO PAIN LEVEL 8-10 Last administered on 01/23/17 15:08; Admin Dose 1 TAB; Start at 12:30 Pantoprazole (Protonix Tab) 40 mg DAILY@06 PO Last administered on 01/23/17 05 :42; Admin Dose 40 MG; Start 01/20/17 at 06:00 IV Flush (NS 10 ml) 10 ml PRN PRN IV FLUSH LINE; Start 01/20/17 at 07:00 IV Flush (NS 10 ml) 10 ml PRN PRN IV FLUSH LINE; Start 01/20/17 at 07:00 IV Flush (NS 10 ml) 20 ml PRN PRN IV FLUSH LINE; Start 01/20/17 at 07:00 Heparin Sodium (Porcine) (Heparin Flush (10 Units/ml)) 50 unit PRN PRN IV LUMENS NOT IN USE; Start 01/20/17 at 07:00 Acetaminophen (Tylenol Tab) 650 mg Q4H PRN PO MILD PAIN LEVEL 1-3; Start at 07:00 Fish Oil 2000 mg 2,000 mg BID PO Last administered on 01/23/17 09:31; Admin Dose 2,000 MG; Start 01/21/17 at 21:00 Ceftriaxone Sodium (Rocephin) 50 ml @ 100 mls/hr Q24H IVPB Last administered on 01/22/17 17:34; Admin Dose 100 MLS/HR; Start 01/21/17 at 17:30 Saccharomyces Boulardii (Florastor) 500 mg BID PO ; Start 01/23/17 at 21:00 WISAM HESS DO Jan 23, 2017 16:07
--- NOTE | 2017-01-23 16:21 | PN ---
Date/Time of Note Date/Time of Note DATE: 01/23/17 TIME: 16:15 Assessment/Plan Lines/Catheters IV Catheter Type (from Nrs): PICC Line Esquivel in Place (from Nrs): No Assessment/Plan Assessment/Plan [facility] Progress Note Date of Service: 01/23/17 Today's Impression & Plan: Overall stable and continues to improve. No indication for acute surgical intervention. Liver abscesses appear well controlled with the drains and no bile communication seen. Minimal output and ss. Discussed with Dr. Jefferson in IR. Will get CT to evaluate. Hoping for d/c home in 24-48 hours with oral conversion of antimicrobials. C-diff neg; diarrhea likely aftermath of shock. With above assessment, I've recommended the following for today: 1. CT abd/pelvis with IV contrast liver-protocol 2. Targeted downstaging of antimicrobials per Dr. Herrmann with oral conversion as soon as possible 3. Follow up with cultures results and sensitivities. 4. Cont regular diet. 5. Increase activity 6. Triple-phase liver-dedicated CT abd/pelvis 7. D/c contact precautions Thank you again for your great care of this very pleasant patient and wonderful family. If there are any questions, please feel free to call me at [phone]. TOTAL VISIT TIME: 20 minutes of which more than half was spent in [id number] discussion with the patient, possibly including family, as well as coordination of care between multiple physicians and providers. Disclaimer: Inadvertent spelling or grammatical errors are likely due to EHR/ dictation software use and do not reflect on the overall quality of patient care. Updated Clinical Summary: The patient is a very pleasant 41-year-old lady with comorbidities including BMI 25.4 who presented through the emergency department at [facility] on 01/16/2017 with multiple hepatic abscesses, status post percutaneous drainage procedure 01/17/17 at [facility]. COMORBIDITIES: 1. BMI 25.4. 2. Possible prediabetes given the elevated hemoglobin A1c 3. Sepsis with two liver abscesses in the right lobe of the liver, status post percutaneous drainage procedure 01/17/17 at [facility]. Subjective: No major events or complaints; no abd pain and under control with medications; no n/v/d; no sob or cp; + bowel activity (diarrhea x6 today); C-diff negative; minimal activity Objective: Vitals: See below Exam: GENERAL: On exam, the patient was laying in bed and appeared to be comfortable and in no acute distress. ABDOMEN: Soft, nontender and nondistended. Perc hepatic drains both ss without obvious bile and minimal outputs. There are no peritoneal signs or guarding. SKIN: Skin appears to be pink and feels warm to touch. NEUROLOGIC: Patient is awake, alert, and follows commands appropriately. Exam/Review of Systems Vital Signs Vitals Vital Signs Date Time Temp Pulse Resp B/P Pulse Ox O2 Delivery O2 Flow Rate FiO2 01/23/17 08:20 98.7 85 20 104/58 100 01/22/17 08:00 Nasal Cannula 1.0 Intake and Output 01/22/17 01/22/17 01/23/17 15:00 23:00 07:00 Intake Total 810 ml 360 ml Output Total 1305 ml 800 ml Balance -495 ml -440 ml Results Result Diagram: 01/23/17 0507 01/23/17 0507 RALF MG M.D. Jan 23, 2017 16:20
[2017-01-23] MEDS: CEFTRIAXONE 1 GM/50 ML (PMX) 50 ML IVPB SCH (17:42)
[2017-01-23] MEDS ORDERED: IOHEXOL 100 ML ONE (18:11)
[2017-01-23] MEDS ORDERED: SOD CHLORIDE 0.9% 100 ML ONE (18:11)
[2017-01-23] MEDS ORDERED: IOHEXOL 350MG/ML 50 ML BTL ONE (18:11)
--- NOTE | 2017-01-23 19:39 | RADRPT ---
PROCEDURE: CT abdomen and pelvis with and without contrast. CLINICAL INDICATION: Liver abscess, now status post drainage. TECHNIQUE: Pre and postcontrast enhanced CT examination of the abdomen and pelvis, with axial, sagi ttal and coronal reformatted images. 100 cc Isovue 300 nonionic IV contrast were employed. Automate d dose exposure control was employed. CTDI: 21.56 mGy and DLP: 757.21 mGy-cm. COMPARISON: 01/17/2017 FINDINGS: ABNORMAL RESULTS: NEW MILD TO MODERATE [address] abdomen: Small right pleural effusion is increased with increased right lung base atelectasis versus pneumoni a. Discoid atelectasis at the left lung base is again seen, with stable atelectasis in the left pos terior costophrenic angle. Moderate hiatal hernia again seen. The heart size is normal, with a mild to moderate pericardial effusion measuring up to 10 mm in thic kness. Previously seen 9 cm diameter liver abscess now measures about 7 cm in diameter, and the smaller inf erior liver abscess previously measuring 5 cm now measures about 4 cm in diameter. There are 2 new p ercutaneous pigtail drain catheters in place, coiled within the abscesses. New air is seen within t he abscesses. No intrahepatic biliary dilatation. The spleen is normal in size and homogeneous in density. The s tomach is partially collapsed, but is grossly unremarkable. The pancreas as visualized is normal. The gallbladder and biliary tree are unremarkable and there is no evidence for biliary dilatation. The adrenal glands are symmetric and normal. The kidneys are symmetrically unremarkable as well. No renal calculus or obstructive uropathy or mass lesion is seen. The aorta is of normal caliber. No aortic vascular calcifications are present. There is no retrope ritoneal lymphadenopathy. The dionna hepatis region is clear. The bowel and mesentery, as visualize d, are equally unremarkable. ABNORMAL RESULTS: NEW MILD TO MODERATE [address] PELVIS: Delayed images were obtained through the pelvis. There is small amount of free fluid the pelvis. Mi ld diverticulosis of the sigmoid colon. Pelvic viscera otherwise unremarkable. The rectum is unrem arkable. The appendix is unremarkable. There is no evident mass or adenopathy. The surrounding osseous structures are remarkable for mild degenerative spondylosis of the spine. N o osteolytic or osteoblastic lesion is detected. IMPRESSION: 1. Increased right pleural effusion with new atelectasis versus airspace disease at the right lung base. 2. Mild to moderate 10 mm pericardial effusion. 3. The previously seen 9 cm hepatic abscess is decreased in size, now measuring about 7 cm. 4. The smaller inferior previously seen 7 mm hepatic abscess is decreased in size, now measuring ab out 4 mm. 5. 2 the new percutaneous pigtail catheter drains are coiled within the abscesses. ABNORMAL RESULTS: NEW MILD TO MODERATE 10 MM PERICARDIAL EFFUSION. RPTAT: [facility] Physician Giancarlo Date Time Electronically viewed and signed by Physician Giancarlo on 01/23/2017 19:39 RS/
[2017-01-23 21:23] VITALS: BP 108/60; RESP 20
[2017-01-23] MEDS: SACCHAROMYCES BOULARDII 250 MG CAP PO SCH (21:25)
[2017-01-24 05:25] LABS: ADD SCAN DIFF NO
[2017-01-24] MEDS: PANTOPRAZOLE (EC) 40 MG TAB PO SCH (05:35)
[2017-01-24 05:36] LABS: BASOPHILS % 0.3 % (0.0-2.0); EOSINOPHILS # 0.1 10^3/ul (0.0-0.5); EOSINOPHILS % 0.7 % (0.0-7.0); HEMATOCRIT 28.3 % (37.0-47.0); HEMOGLOBIN 9.3 g/dl (12.0-16.0); LYMPHOCYTES # 1.9 10^3/ul (0.8-2.9); LYMPHOCYTES % 16.7 % (15.0-51.0); MEAN CORPUSCULAR HGB CONC 32.9 g/dl (32.0-37.0); MEAN CORPUSCULAR VOLUME 82.3 fl (82.0-101.0); MEAN PLATELET VOLUME 9.2 fl (7.4-10.4); MONOCYTE # 0.7 10^3/ul (0.3-0.9); MONOCYTES % 6.3 % (0.0-11.0); NEUTROPHIL # 8.4 10^3/ul (1.6-7.5); NEUTROPHILS % 74.8 % (39.0-77.0); PLATELET COUNT 683 10^3/UL (140-415); RED BLOOD COUNT 3.44 10^6/ul (4.20-5.40); RED CELL DISTRIBUTION WIDTH 15.9 % (11.5-14.5); WHITE BLOOD COUNT 11.2 10^3/ul (4.8-10.8)
[2017-01-24] MEDS: ONDANSETRON 4 MG INJ IV PRN (05:38)
[2017-01-24 06:12] LABS: CALCIUM 8.6 mg/dl (8.4-10.2); CREATININE 0.56 mg/dl (0.44-1.00); POTASSIUM 4.2 mmol/L (3.5-5.1)
[2017-01-24 06:13] LABS: MAGNESIUM 2.1 mg/dl (1.7-2.5); PHOSPHORUS 4.8 mg/dl (2.5-4.9)
[2017-01-24 07:52] VITALS: BP 104/60; RESP 17
[2017-01-24] MEDS: SACCHAROMYCES BOULARDII 250 MG CAP PO SCH ×2 (09:13→20:54)
[2017-01-24] MEDS: FISH OIL 1,000 MG CAP PO SCH ×2 (09:14→20:54)
--- NOTE | 2017-01-24 09:41 | PN ---
Date/Time of Note Date/Time of Note DATE: 01/24/17 TIME: 09:39 Assessment/Plan VTE Prophylaxis VTE Prophylaxis Intervention: ambulation Lines/Catheters [facility] PICC Line Central line still needed: No Urinary Cath still in place: No Assessment/Plan Chief Complaint/Hosp Course 1. Nonoliguric acute kidney injury secondary to hemodynamics. Renal function has normalized. Continue current treatment plan, supportive care. 2. Hypokalemia, improved. Continue to monitor. 3. Hypomagnesemia, improved. 4. Anemia. Continue to monitor hemoglobin and hematocrit levels. 5. Mineral bone disorder. Continue to monitor calcium and phosphorus levels. 6. Sepsis secondary to bacteremia The patient is status post liver drain. Continue to monitor. Continue antibiotics. Follow up with the hepatobiliary service. 7. Transaminitis. Continue to monitor. 8. Thrombocytopenia, improved. 9. Metabolic acidosis, resolved. Problems: Subjective 24 Hr Interval Summary Free Text/Dictation No acute events overnight no fever chills nausea Exam/Review of Systems Vital Signs Vitals Vital Signs Date Time Temp Pulse Resp B/P Pulse Ox O2 Delivery O2 Flow Rate FiO2 01/24/17 07:52 98.0 88 17 104/60 96 01/22/17 08:00 Nasal Cannula 1.0 Intake and Output 01/23/17 01/23/17 01/24/17 15:00 23:00 07:00 Intake Total 440 ml 2975 ml 480 ml Output Total 600 ml 20 ml 10 ml Balance -160 ml 2955 ml 470 ml Exam HEENT: Head is normocephalic. NECK: Supple. HEART: Regular rate. LUNGS: Show diminished breath sounds at base. ABDOMEN: Soft, nontender to palpation without rebound or guarding. EXTREMITIES: Negative for clubbing, cyanosis, no edema. DERMATOLOGIC: No rashes. MUSCULOSKELETAL: No joint effusions. NEUROLOGIC: No change in exam. Results Result Diagram: 01/24/17 0508 01/24/17 0508 Results 24 hrs Laboratory Tests Test 01/24/17 05:08 White Blood Count 11.2 H Red Blood Count 3.44 L Hemoglobin 9.3 L Hematocrit 28.3 L Mean Corpuscular Volume 82.3 Mean Corpuscular Hemoglobin 27.0 L Mean Corpuscular Hemoglobin Concent 32.9 Red Cell Distribution Width 15.9 H Platelet Count 683 #H Mean Platelet Volume 9.2 Neutrophils % 74.8 Lymphocytes % 16.7 Monocytes % 6.3 Eosinophils % 0.7 Basophils % 0.3 Nucleated Red Blood Cells % 0.0 Neutrophils # 8.4 H Lymphocytes # 1.9 Monocytes # 0.7 Eosinophils # 0.1 Basophils # 0.0 Nucleated Red Blood Cells # 0.0 Sodium Level 136 Potassium Level 4.2 Chloride Level 102 Carbon Dioxide Level 27 Anion Gap 11 Blood Urea Nitrogen 5 L Creatinine 0.56 Glucose Level 96 Calcium Level 8.6 Phosphorus Level 4.8 Magnesium Level 2.1 Medications Medications Current Medications Ondansetron HCl (Zofran Inj) 4 mg Q6H PRN IV NAUSEA AND/OR VOMITING Last administered on 01/24/17 05:38; Admin Dose 4 MG; Start 01/17/17 at 00:30 Morphine Sulfate (morphine) 2 mg Q4H PRN IV SEVERE PAIN LEVEL 7-10 Last administered on 01/21/17 08:43; Admin Dose 2 MG; Start 01/17/17 at 00:30 IV Flush (NS 10 ml) 10 ml TID IV Last administered on 01/24/17 09:12; Admin Dose 10 ML; Start 01/18/17 at 13:00 Acetaminophen/ Hydrocodone Bitart ([place] (7.5-325)) 1 tab Q4H PRN PO PAIN LEVEL 8-10 Last administered on 01/23/17 15:08; Admin Dose 1 TAB; Start at 12:30 Pantoprazole (Protonix Tab) 40 mg DAILY@06 PO Last administered on 01/24/17 05 :35; Admin Dose 40 MG; Start 01/20/17 at 06:00 IV Flush (NS 10 ml) 10 ml PRN PRN IV FLUSH LINE; Start 01/20/17 at 07:00 IV Flush (NS 10 ml) 10 ml PRN PRN IV FLUSH LINE; Start 01/20/17 at 07:00 IV Flush (NS 10 ml) 20 ml PRN PRN IV FLUSH LINE; Start 01/20/17 at 07:00 Heparin Sodium (Porcine) (Heparin Flush (10 Units/ml)) 50 unit PRN PRN IV LUMENS NOT IN USE; Start 01/20/17 at 07:00 Acetaminophen (Tylenol Tab) 650 mg Q4H PRN PO MILD PAIN LEVEL 1-3; Start at 07:00 Fish Oil 2000 mg 2,000 mg BID PO Last administered on 01/24/17 09:14; Admin Dose 2,000 MG; Start 01/21/17 at 21:00 Ceftriaxone Sodium (Rocephin) 50 ml @ 100 mls/hr Q24H IVPB Last administered on 01/23/17 17:42; Admin Dose 100 MLS/HR; Start 01/21/17 at 17:30 Saccharomyces Boulardii (Florastor) 500 mg BID PO Last administered on 09:13; Admin Dose 500 MG; Start 01/23/17 at 21:00 WISAM HESS DO Jan 24, 2017 09:41
--- NOTE | 2017-01-24 10:30 | RADRPT ---
PROCEDURE: XR Chest 1 View. CLINICAL INDICATION: Shortness of breath. TECHNIQUE: AP view of the chest was obtained. COMPARISON: January 20, 2017 FINDINGS: The cardiomediastinal silhouette is within normal limits. Mild elevation right hemidiaphragm is iden tified. Subsegmental atelectasis is noted in the bilateral lower lobes. Blunting of the left costo phrenic angle is seen. Right-sided PICC line is stable and appears in grossly appropriate location. Multipurpose drains in the right upper quadrant are grossly unchanged. The osseous structures appe ar intact. IMPRESSION: Elevation of the right hemidiaphragm. Interval decrease in bilateral lower lobe infiltrates. Scattered atelectasis remains. Small residual left pleural effusion. RPTAT: AA .Jay Ren MD, Date Time Electronically viewed and signed by .Jay Ren MD, on 01/24/2017 10:29 .P/
--- NOTE | 2017-01-24 12:29 | CONS ---
Date/Time of Note Date/Time of Note DATE: 01/24/17 TIME: 12:27 Assessment/Plan Assessment/Plan Chief Complaint/Hosp Course SUBJECTIVE: No acute changes. The patient is alert. Looks comfortable. No fevers. MICROBIOLOGY: Blood culture growing alpha hemolytic strep species. Repeat blood cultures negative. C dif negative Diagnostics: Repeat CT of the abdomen revealed:1. increased right pleural effusion with new atelectasis versus airspace disease at the right lung base. 2. Mild to moderate 10 mm pericardial effusion. 3. The previously seen 9 cm hepatic abscess is decreased in size, now measuring about 7 cm. 4. The smaller inferior previously seen 7 mm hepatic abscess is decreased in size, now measuring about 4 mm. 5. 2 the new percutaneous pigtail catheter drains are coiled within the abscesses. ANTIMICROBIALS: Rocephin. INDWELLINGS: PICC line and intraabdominal drainage catheters. PHYSICAL EXAMINATION: GENERAL: Well-developed, well-nourished, middle-aged woman who is awake, in no distress. HEENT: Head atraumatic, normocephalic. Sclerae anicteric. Buccal mucosa dry. NECK: Supple. CHEST: Rise symmetrical. Breath sounds clear. HEART: S1, S2. ABDOMEN: Soft, bowel sounds present. EXTREMITIES: Without cyanosis. ASSESSMENT: 1. Resolving sepsis. 2. Streptococcal bacteremia 2 to #3 with repeat blood cultures negative. 3. Status post CT-guided liver abscess drainage. 4. Anemia. 5. Status post acute kidney injury. PLAN: Remain stable, continue IV antibiotics, follow surgical recommendations. Encourage incentive spirometry use and ambulation. DW staff Problems: Consultation Date/Type/Reason Admit Date/Time Jan 17, 2017 at 00:20 Initial Consult Date 01/18/17 Type of Consultation: ID Exam/Review of Systems Vital Signs Vitals Vital Signs Date Time Temp Pulse Resp B/P Pulse Ox O2 Delivery O2 Flow Rate FiO2 01/24/17 07:52 98.0 88 17 104/60 96 01/22/17 08:00 Nasal Cannula 1.0 Intake and Output 01/23/17 01/23/17 01/24/17 15:00 23:00 07:00 Intake Total 440 ml 2975 ml 480 ml Output Total 600 ml 20 ml 10 ml Balance -160 ml 2955 ml 470 ml Results Result Diagram: 01/24/17 0508 01/24/17 0508 Results 24 hrs Laboratory Tests Test 01/24/17 05:08 White Blood Count 11.2 H Red Blood Count 3.44 L Hemoglobin 9.3 L Hematocrit 28.3 L Mean Corpuscular Volume 82.3 Mean Corpuscular Hemoglobin 27.0 L Mean Corpuscular Hemoglobin Concent 32.9 Red Cell Distribution Width 15.9 H Platelet Count 683 #H Mean Platelet Volume 9.2 Neutrophils % 74.8 Lymphocytes % 16.7 Monocytes % 6.3 Eosinophils % 0.7 Basophils % 0.3 Nucleated Red Blood Cells % 0.0 Neutrophils # 8.4 H Lymphocytes # 1.9 Monocytes # 0.7 Eosinophils # 0.1 Basophils # 0.0 Nucleated Red Blood Cells # 0.0 Sodium Level 136 Potassium Level 4.2 Chloride Level 102 Carbon Dioxide Level 27 Anion Gap 11 Blood Urea Nitrogen 5 L Creatinine 0.56 Glucose Level 96 Calcium Level 8.6 Phosphorus Level 4.8 Magnesium Level 2.1 Medications Medications Current Medications Ondansetron HCl (Zofran Inj) 4 mg Q6H PRN IV NAUSEA AND/OR VOMITING Last administered on 01/24/17 05:38; Admin Dose 4 MG; Start 01/17/17 at 00:30 Morphine Sulfate (morphine) 2 mg Q4H PRN IV SEVERE PAIN LEVEL 7-10 Last administered on 01/21/17 08:43; Admin Dose 2 MG; Start 01/17/17 at 00:30 IV Flush (NS 10 ml) 10 ml TID IV Last administered on 01/24/17 09:12; Admin Dose 10 ML; Start 01/18/17 at 13:00 Acetaminophen/ Hydrocodone Bitart ([place] (7.5-325)) 1 tab Q4H PRN PO PAIN LEVEL 8-10 Last administered on 01/23/17 15:08; Admin Dose 1 TAB; Start at 12:30 Pantoprazole (Protonix Tab) 40 mg DAILY@06 PO Last administered on 01/24/17 05 :35; Admin Dose 40 MG; Start 01/20/17 at 06:00 IV Flush (NS 10 ml) 10 ml PRN PRN IV FLUSH LINE; Start 01/20/17 at 07:00 IV Flush (NS 10 ml) 10 ml PRN PRN IV FLUSH LINE; Start 01/20/17 at 07:00 IV Flush (NS 10 ml) 20 ml PRN PRN IV FLUSH LINE; Start 01/20/17 at 07:00 Heparin Sodium (Porcine) (Heparin Flush (10 Units/ml)) 50 unit PRN PRN IV LUMENS NOT IN USE; Start 01/20/17 at 07:00 Acetaminophen (Tylenol Tab) 650 mg Q4H PRN PO MILD PAIN LEVEL 1-3; Start at 07:00 Fish Oil 2000 mg 2,000 mg BID PO Last administered on 01/24/17 09:14; Admin Dose 2,000 MG; Start 01/21/17 at 21:00 Ceftriaxone Sodium (Rocephin) 50 ml @ 100 mls/hr Q24H IVPB Last administered on 01/23/17 17:42; Admin Dose 100 MLS/HR; Start 01/21/17 at 17:30 Saccharomyces Boulardii (Florastor) 500 mg BID PO Last administered on 09:13; Admin Dose 500 MG; Start 01/23/17 at 21:00 USHA ALVARES NP Jan 24, 2017 12:29
--- NOTE | 2017-01-24 13:37 | PN ---
Date/Time of Note Date/Time of Note DATE: 01/24/17 TIME: 13:35 Assessment/Plan Lines/Catheters IV Catheter Type (from Nrsg): PICC Line Esquivel in Place (from Nrsg): No Assessment/Plan Assessment/Plan [facility] Progress Note Date of Service: 01/24/17 Today's Impression & Plan: Overall stable and continues to improve. No indication for acute surgical intervention. Liver abscesses appear well controlled with the drains and no bile communication seen. Minimal output and ss. Discussed new CT findings with Dr. Jefferson in IR and we both agreed to keep the drains in for now. Hoping for d/c home today or tomorrow with oral conversion of antimicrobials With above assessment, I've recommended the following for today: 1. Set up for d/c home 2. Drain care education with flushing each drain with 10 cc NS per day 3. May need home health nurse visit set up 4. F/u with me in the office in 1-2 weeks Thank you again for your great care of this very pleasant patient and wonderful family. If there are any questions, please feel free to call me at [phone]. TOTAL VISIT TIME: 20 minutes of which more than half was spent in [id number] discussion with the patient, possibly including family, as well as coordination of care between multiple physicians and providers. Disclaimer: Inadvertent spelling or grammatical errors are likely due to EHR/ dictation software use and do not reflect on the overall quality of patient care. Updated Clinical Summary: The patient is a very pleasant 41-year-old lady with comorbidities including BMI 25.4 who presented through the emergency department at [facility] on 01/16/2017 with multiple hepatic abscesses, status post percutaneous drainage procedure 01/17/17 at [facility]. COMORBIDITIES: 1. BMI 25.4. 2. Possible prediabetes given the elevated hemoglobin A1c 3. Sepsis with two liver abscesses in the right lobe of the liver, status post percutaneous drainage procedure 01/17/17 at [facility]. Subjective: No major events or complaints; no abd pain and under control with medications; no n/v/d; no sob or cp; + bowel activity; minimal activity Objective: Vitals: See below Exam: GENERAL: On exam, the patient was laying in bed and appeared to be comfortable and in no acute distress. ABDOMEN: Soft, nontender and nondistended. Perc hepatic drains both ss without obvious bile and minimal outputs. There are no peritoneal signs or guarding. SKIN: Skin appears to be pink and feels warm to touch. NEUROLOGIC: Patient is awake, alert, and follows commands appropriately. Exam/Review of Systems Vital Signs Vitals Vital Signs Date Time Temp Pulse Resp B/P Pulse Ox O2 Delivery O2 Flow Rate FiO2 01/24/17 07:52 98.0 88 17 104/60 96 01/22/17 08:00 Nasal Cannula 1.0 Intake and Output 01/23/17 01/23/17 01/24/17 15:00 23:00 07:00 Intake Total 440 ml 2975 ml 480 ml Output Total 600 ml 20 ml 10 ml Balance -160 ml 2955 ml 470 ml Results Result Diagram: 01/24/17 0508 01/24/17 0508 RALF MG M.D. Jan 24, 2017 13:37
--- NOTE | 2017-01-24 14:47 | CONS ---
Date/Time of Note Date/Time of Note DATE: 01/24/17 TIME: 14:41 Assessment/Plan Assessment/Plan Chief Complaint/Hosp Course IMP: 1.Pericardial effusion-does not appear to ahve HD consequence by VS 2.Liver abscess s/p drainage 3.Bacteremia 4.anemia REcc: -Check repeat echo to asses significance of pericardial effusion seen by CT -Continue abx's -Follow drain output Problems: Consultation Date/Type/Reason Admit Date/Time Jan 17, 2017 at 00:20 Date of Consultation: Jan 24, 2017 Type of Consultation: Cardiology Reason for Consultation pericardial effusion Referring Provider: DELMY VILLATORO NP Hx of Present Illness 41 y/o female with h/o prediabetes who p/w fever chills, wekaness and was found to have a bacteremia and subsequent liver abscess for which she underwent percutaneous drainage. Patient had a f/u CT done 01/23/17 now revealing pericardial effusion. Constitutional: febrile Eyes: no complaints ENT: no complaints Respiratory: no complaints Cardiovascular: no complaints Gastrointestinal: other (mild abdominal pain) Genitourinary: no complaints Musculoskeletal: no complaints Skin: no complaints Neurologic: no complaints Psychological: no complaints Past Medical History Medical History: no pertinent history Past Surgical History Past Surgical Hx: other (now s/p percutaneous drainage of liver abscess) Social History Alcohol Use: none Smoking Status: Never smoker Drug Use: none Exam/Review of Systems Vital Signs Vitals Vital Signs Date Time Temp Pulse Resp B/P Pulse Ox O2 Delivery O2 Flow Rate FiO2 01/24/17 07:52 98.0 88 17 104/60 96 01/22/17 08:00 Nasal Cannula 1.0 Intake and Output 01/23/17 01/23/17 01/24/17 15:00 23:00 07:00 Intake Total 440 ml 2975 ml 480 ml Output Total 600 ml 20 ml 10 ml Balance -160 ml 2955 ml 470 ml Exam Constitutional: alert Psych: no complaints Head: normocephalic ENMT: mucosa pink and moist Neck: jvd (8 cm water), supple Respiratory: clear to auscultation Cardiovascular: regular rate and rhythm Gastrointestinal: non-tender, other (drain in place), soft Musculoskeletal: muscle tone (normal) Extremities: edema (none) Neurological: other (NO focal deficits) Results Result Diagram: 01/24/17 0508 01/24/17 0508 Results 24 hrs Laboratory Tests Test 01/24/17 05:08 White Blood Count 11.2 H Red Blood Count 3.44 L Hemoglobin 9.3 L Hematocrit 28.3 L Mean Corpuscular Volume 82.3 Mean Corpuscular Hemoglobin 27.0 L Mean Corpuscular Hemoglobin Concent 32.9 Red Cell Distribution Width 15.9 H Platelet Count 683 #H Mean Platelet Volume 9.2 Neutrophils % 74.8 Lymphocytes % 16.7 Monocytes % 6.3 Eosinophils % 0.7 Basophils % 0.3 Nucleated Red Blood Cells % 0.0 Neutrophils # 8.4 H Lymphocytes # 1.9 Monocytes # 0.7 Eosinophils # 0.1 Basophils # 0.0 Nucleated Red Blood Cells # 0.0 Sodium Level 136 Potassium Level 4.2 Chloride Level 102 Carbon Dioxide Level 27 Anion Gap 11 Blood Urea Nitrogen 5 L Creatinine 0.56 Glucose Level 96 Calcium Level 8.6 Phosphorus Level 4.8 Magnesium Level 2.1 Medications Medications Current Medications Ondansetron HCl (Zofran Inj) 4 mg Q6H PRN IV NAUSEA AND/OR VOMITING Last administered on 01/24/17 05:38; Admin Dose 4 MG; Start 01/17/17 at 00:30 Morphine Sulfate (morphine) 2 mg Q4H PRN IV SEVERE PAIN LEVEL 7-10 Last administered on 01/21/17 08:43; Admin Dose 2 MG; Start 01/17/17 at 00:30 IV Flush (NS 10 ml) 10 ml TID IV Last administered on 01/24/17 09:12; Admin Dose 10 ML; Start 01/18/17 at 13:00 Acetaminophen/ Hydrocodone Bitart ([place] (7.5-325)) 1 tab Q4H PRN PO PAIN LEVEL 8-10 Last administered on 01/23/17 15:08; Admin Dose 1 TAB; Start at 12:30 Pantoprazole (Protonix Tab) 40 mg DAILY@06 PO Last administered on 01/24/17 05 :35; Admin Dose 40 MG; Start 01/20/17 at 06:00 IV Flush (NS 10 ml) 10 ml PRN PRN IV FLUSH LINE; Start 01/20/17 at 07:00 IV Flush (NS 10 ml) 10 ml PRN PRN IV FLUSH LINE; Start 01/20/17 at 07:00 IV Flush (NS 10 ml) 20 ml PRN PRN IV FLUSH LINE; Start 01/20/17 at 07:00 Heparin Sodium (Porcine) (Heparin Flush (10 Units/ml)) 50 unit PRN PRN IV LUMENS NOT IN USE; Start 01/20/17 at 07:00 Acetaminophen (Tylenol Tab) 650 mg Q4H PRN PO MILD PAIN LEVEL 1-3; Start at 07:00 Fish Oil 2000 mg 2,000 mg BID PO Last administered on 01/24/17 09:14; Admin Dose 2,000 MG; Start 01/21/17 at 21:00 Ceftriaxone Sodium (Rocephin) 50 ml @ 100 mls/hr Q24H IVPB Last administered on 01/23/17 17:42; Admin Dose 100 MLS/HR; Start 01/21/17 at 17:30 Saccharomyces Boulardii (Florastor) 500 mg BID PO Last administered on 09:13; Admin Dose 500 MG; Start 01/23/17 at 21:00 JB QUIROS Jan 24, 2017 14:47
--- NOTE | 2017-01-24 15:09 | PN ---
Date/Time of Note Date/Time of Note DATE: 01/24/17 TIME: 15:04 Assessment/Plan VTE Prophylaxis VTE Prophylaxis Intervention: SCD's Lines/Catheters IV [facility]ter Type (from [facility]): PICC Line Central line still needed: Yes Urinary Cath still in place: No Assessment/Plan Chief Complaint/Hosp Course 1. Sepsis secondary to underlying liver abscess along with gram-positive bacteremia. Status post septic shock. Continue antibiotics as per Infectious Disease. 2. Acute kidney injury. Resolved. Being followed by Nephrology. 3. Hepatic abscess. Status post percutaneous drainage. The patient is being followed by hepatobiliary surgery. 4. Transaminitis without hyperbilirubinemia. Improving. Most probably secondary to underlying liver abscess. 5. Prediabetes. Hemoglobin A1c 6.3. We will monitor random blood glucose closely. If random glucose levels are high, we will start the patient on therapy. 6. Dyslipidemia with high triglycerides and low HDL. Continue fish oil. 7. Mild to moderate pericardial effusion on a CT scan. There was no pericardial effusion on the 2D echocardiogram that was done on 01/17/2017. 8. Fluid, electrolytes, and nutrition. Regular diet as tolerated. 9. Deep venous thrombosis prophylaxis. Bilateral sequential compression devices. 10. Gastrointestinal prophylaxis. Proton pump inhibitors. PLAN: Continue antibiotics as per infectious diseases. Obtain cardiology consult because of pericardial effusion evident on CT scan. Incentive spirometry. Encourage ambulation. Case discussed with Dr. King. Problems: Subjective 24 Hr Interval Summary Free Text/Dictation Denies any diarrhea. Exam/Review of Systems Vital Signs Vitals Vital Signs Date Time Temp Pulse Resp B/P Pulse Ox O2 Delivery O2 Flow Rate FiO2 01/24/17 07:52 98.0 88 17 104/60 96 01/22/17 08:00 Nasal Cannula 1.0 Intake and Output 01/23/17 01/23/17 01/24/17 15:00 23:00 07:00 Intake Total 440 ml 2975 ml 480 ml Output Total 600 ml 20 ml 10 ml Balance -160 ml 2955 ml 470 ml Exam GENERAL: This is a 41-year-old female lying in bed in no apparent distress. HEENT: Head normocephalic and atraumatic. Eyes: Anicteric sclerae. Conjunctivae clear. ENT: Nasal septum is midline. Oral mucosa is moist. NECK: Supple. No JVD noticed. RESPIRATORY: Bilaterally clear to auscultation. No adventitious breath sounds. No use of accessory muscles of respiration. CARDIAC: Regular rate and rhythm. S1 and S2 heard. ABDOMEN: Soft, scaphoid. Two drains are present on the right side of the abdomen. Bowel sounds are positive in all 4 quadrants. GENITOURINARY: Deferred. EXTREMITIES: No cyanosis, no clubbing, no edema. Peripheral pulses are palpable. NEUROLOGIC: The patient is awake, alert, and oriented. Cranial nerves are grossly intact. Results Result Diagram: 01/24/17 0508 01/24/17 0508 Results 24 hrs Laboratory Tests Test 01/24/17 05:08 White Blood Count 11.2 H Red Blood Count 3.44 L Hemoglobin 9.3 L Hematocrit 28.3 L Mean Corpuscular Volume 82.3 Mean Corpuscular Hemoglobin 27.0 L Mean Corpuscular Hemoglobin Concent 32.9 Red Cell Distribution Width 15.9 H Platelet Count 683 #H Mean Platelet Volume 9.2 Neutrophils % 74.8 Lymphocytes % 16.7 Monocytes % 6.3 Eosinophils % 0.7 Basophils % 0.3 Nucleated Red Blood Cells % 0.0 Neutrophils # 8.4 H Lymphocytes # 1.9 Monocytes # 0.7 Eosinophils # 0.1 Basophils # 0.0 Nucleated Red Blood Cells # 0.0 Sodium Level 136 Potassium Level 4.2 Chloride Level 102 Carbon Dioxide Level 27 Anion Gap 11 Blood Urea Nitrogen 5 L Creatinine 0.56 Glucose Level 96 Calcium Level 8.6 Phosphorus Level 4.8 Magnesium Level 2.1 Medications Medications Current Medications Ondansetron HCl (Zofran Inj) 4 mg Q6H PRN IV NAUSEA AND/OR VOMITING Last administered on 01/24/17 05:38; Admin Dose 4 MG; Start 01/17/17 at 00:30 Morphine Sulfate (morphine) 2 mg Q4H PRN IV SEVERE PAIN LEVEL 7-10 Last administered on 01/21/17 08:43; Admin Dose 2 MG; Start 01/17/17 at 00:30 IV Flush (NS 10 ml) 10 ml TID IV Last administered on 01/24/17 09:12; Admin Dose 10 ML; Start 01/18/17 at 13:00 Acetaminophen/ Hydrocodone Bitart ([place] (7.5-325)) 1 tab Q4H PRN PO PAIN LEVEL 8-10 Last administered on 01/23/17 15:08; Admin Dose 1 TAB; Start at 12:30 Pantoprazole (Protonix Tab) 40 mg DAILY@06 PO Last administered on 01/24/17 05 :35; Admin Dose 40 MG; Start 01/20/17 at 06:00 IV Flush (NS 10 ml) 10 ml PRN PRN IV FLUSH LINE; Start 01/20/17 at 07:00 IV Flush (NS 10 ml) 10 ml PRN PRN IV FLUSH LINE; Start 01/20/17 at 07:00 IV Flush (NS 10 ml) 20 ml PRN PRN IV FLUSH LINE; Start 01/20/17 at 07:00 Heparin Sodium (Porcine) (Heparin Flush (10 Units/ml)) 50 unit PRN PRN IV LUMENS NOT IN USE; Start 01/20/17 at 07:00 Acetaminophen (Tylenol Tab) 650 mg Q4H PRN PO MILD PAIN LEVEL 1-3; Start at 07:00 Fish Oil 2000 mg 2,000 mg BID PO Last administered on 01/24/17 09:14; Admin Dose 2,000 MG; Start 01/21/17 at 21:00 Ceftriaxone Sodium (Rocephin) 50 ml @ 100 mls/hr Q24H IVPB Last administered on 01/23/17 17:42; Admin Dose 100 MLS/HR; Start 01/21/17 at 17:30 Saccharomyces Boulardii (Florastor) 500 mg BID PO Last administered on 09:13; Admin Dose 500 MG; Start 01/23/17 at 21:00 DELMY VILLATORO NP Jan 24, 2017 15:09
[2017-01-24] MEDS: CEFTRIAXONE 1 GM/50 ML (PMX) 50 ML IVPB SCH (18:16)
[2017-01-24 20:03] VITALS: BP 119/72; RESP 16
[2017-01-24] MEDS: HYDROCODONE/APAP (7.5/325) TAB PO PRN (21:41)
[2017-01-25 05:32] LABS: ADD SCAN DIFF NO
[2017-01-25 05:38] LABS: BASOPHILS % 0.2 % (0.0-2.0); EOSINOPHILS # 0.1 10^3/ul (0.0-0.5); EOSINOPHILS % 0.9 % (0.0-7.0); HEMATOCRIT 28.6 % (37.0-47.0); HEMOGLOBIN 9.1 g/dl (12.0-16.0); LYMPHOCYTES # 1.8 10^3/ul (0.8-2.9); LYMPHOCYTES % 18.4 % (15.0-51.0); MEAN CORPUSCULAR HEMOGLOBIN 26.5 pg (29.0-33.0); MEAN CORPUSCULAR HGB CONC 31.8 g/dl (32.0-37.0); MEAN CORPUSCULAR VOLUME 83.4 fl (82.0-101.0); MONOCYTE # 0.7 10^3/ul (0.3-0.9); MONOCYTES % 7.2 % (0.0-11.0); NEUTROPHIL # 7.1 10^3/ul (1.6-7.5); NEUTROPHILS % 72.3 % (39.0-77.0); RED BLOOD COUNT 3.43 10^6/ul (4.20-5.40); WHITE BLOOD COUNT 9.8 10^3/ul (4.8-10.8)
[2017-01-25 05:46] LABS: PLATELET COUNT 764 10^3/UL (140-415)
[2017-01-25] MEDS: PANTOPRAZOLE (EC) 40 MG TAB PO SCH (06:03)
[2017-01-25 06:06] LABS: ALBUMIN 3.8 g/dl (3.3-4.9); ALBUMIN/GLOBULIN RATIO 0.92; BILIRUBIN,INDIRECT 0.1 mg/dl (0-1.1); BILIRUBIN,TOTAL 0.1 mg/dl (0.2-1.3); CALCIUM 8.9 mg/dl (8.4-10.2); CREATININE 0.53 mg/dl (0.44-1.00); POTASSIUM 4.1 mmol/L (3.5-5.1); TOTAL PROTEIN 7.9 g/dl (6.1-8.1)
[2017-01-25 06:16] LABS: MAGNESIUM 2.1 mg/dl (1.7-2.5); PHOSPHORUS 4.9 mg/dl (2.5-4.9)
[2017-01-25 07:40] VITALS: BP 111/59; RESP 18
[2017-01-25] MEDS: SACCHAROMYCES BOULARDII 250 MG CAP PO SCH ×2 (09:35→21:07)
[2017-01-25] MEDS: FISH OIL 1,000 MG CAP PO SCH ×2 (09:35→21:07)
--- NOTE | 2017-01-25 09:35 | PN ---
Date/Time of Note Date/Time of Note DATE: 01/25/17 TIME: 09:33 Assessment/Plan Lines/Catheters IV Catheter Type (from Nrsg): PICC Line Esquivel in Place (from Nrsg): No Assessment/Plan Assessment/Plan [facility] Progress Note Date of Service: 01/25/17 Today's Impression & Plan: Overall stable and continues to improve. No indication for acute surgical intervention. Liver abscesses appear well controlled with the drains and no bile communication seen. Minimal output and ss. Still has large enough abnormalities around both drains that they should stay for now. Hoping for d/c home today or tomorrow with oral conversion of antimicrobials With above assessment, I've recommended the following for today: 1. Set up for d/c home 2. Drain care education with flushing each drain with 10 cc NS per day 3. May need home health nurse visit set up 4. F/u with me in the office in 1-2 weeks Thank you again for your great care of this very pleasant patient and wonderful family. If there are any questions, please feel free to call me at [phone]. TOTAL VISIT TIME: 20 minutes of which more than half was spent in [id number] discussion with the patient, possibly including family, as well as coordination of care between multiple physicians and providers. Disclaimer: Inadvertent spelling or grammatical errors are likely due to EHR/ dictation software use and do not reflect on the overall quality of patient care. Updated Clinical Summary: The patient is a very pleasant 41-year-old lady with comorbidities including BMI 25.4 who presented through the emergency department at [facility] on 01/16/2017 with multiple hepatic abscesses, status post percutaneous drainage procedure 01/17/17 at [facility]. COMORBIDITIES: 1. BMI 25.4. 2. Possible prediabetes given the elevated hemoglobin A1c 3. Sepsis with two liver abscesses in the right lobe of the liver, status post percutaneous drainage procedure 01/17/17 at [facility]. Subjective: No major events or complaints; no abd pain and under control with medications; slightly sore at the site of drain insertions; no n/v/d; no sob or cp; + bowel activity; minimal activity Objective: Vitals: See below Exam: GENERAL: On exam, the patient was sitting up in a chair and appeared to be comfortable and in no acute distress. ABDOMEN: Soft, nontender and nondistended. Perc hepatic drains both ss without obvious bile and minimal outputs. There are no peritoneal signs or guarding. SKIN: Skin appears to be pink and feels warm to touch. NEUROLOGIC: Patient is awake, alert, and follows commands appropriately. Exam/Review of Systems Vital Signs Vitals Vital Signs Date Time Temp Pulse Resp B/P Pulse Ox O2 Delivery O2 Flow Rate FiO2 01/25/17 07:40 97.9 89 18 111/59 96 01/22/17 08:00 Nasal Cannula 1.0 Intake and Output 01/24/17 01/24/17 01/25/17 15:00 23:00 07:00 Intake Total 1110 ml 580 ml Output Total 600 ml 5 ml Balance 510 ml 575 ml Results Result Diagram: 01/25/17 0518 01/25/17 0518 RALF MG M.D. Jan 25, 2017 09:35
--- NOTE | 2017-01-25 10:40 | PN ---
Date/Time of Note Date/Time of Note DATE: 01/25/17 TIME: 10:39 Assessment/Plan VTE Prophylaxis VTE Prophylaxis Intervention: ambulation, SCD's Lines/Catheters IV [facility]ter Type (from [facility]): PICC Line Central line still needed: Yes Urinary Cath still in place: No Assessment/Plan Chief Complaint/Hosp Course 1. Sepsis secondary to underlying liver abscess along with gram-positive bacteremia. Status post septic shock. Continue antibiotics as per Infectious Disease. 2. Acute kidney injury. Resolved. Being followed by Nephrology. 3. Hepatic abscess. Status post percutaneous drainage. The patient is being followed by hepatobiliary surgery. 4. Transaminitis without hyperbilirubinemia. Improving. Most probably secondary to underlying liver abscess. 5. Prediabetes. Hemoglobin A1c 6.3. We will monitor random blood glucose closely. If random glucose levels are high, we will start the patient on therapy. 6. Dyslipidemia with high triglycerides and low HDL. Continue fish oil. 7. Mild to moderate pericardial effusion on a CT scan. There was no pericardial effusion on the 2D echocardiogram that was done on 01/17/2017. Cardiology evaluation ongoing. Repeat 2D echocardiogram pending. 8. Fluid, electrolytes, and nutrition. Regular diet as tolerated. 9. Deep venous thrombosis prophylaxis. Bilateral sequential compression devices. 10. Gastrointestinal prophylaxis. Proton pump inhibitors. PLAN: Continue antibiotics as per infectious diseases. Await to repeat a 2D echocardiogram. Await clearance from consultants before discharge. Case discussed with Dr. King. Problems: Subjective 24 Hr Interval Summary Free Text/Dictation Patient remains afebrile. Exam/Review of Systems Vital Signs Vitals Vital Signs Date Time Temp Pulse Resp B/P Pulse Ox O2 Delivery O2 Flow Rate FiO2 01/25/17 07:40 97.9 89 18 111/59 96 01/22/17 08:00 Nasal Cannula 1.0 Intake and Output 01/24/17 01/24/17 01/25/17 15:00 23:00 07:00 Intake Total 1110 ml 580 ml Output Total 600 ml 5 ml Balance 510 ml 575 ml Exam GENERAL: This is a 41-year-old female lying in bed in no apparent distress. HEENT: Head normocephalic and atraumatic. Eyes: Anicteric sclerae. Conjunctivae clear. ENT: Nasal septum is midline. Oral mucosa is moist. NECK: Supple. No JVD noticed. RESPIRATORY: Bilaterally clear to auscultation. No adventitious breath sounds. No use of accessory muscles of respiration. CARDIAC: Regular rate and rhythm. S1 and S2 heard. ABDOMEN: Soft, scaphoid. Two drains are present on the right side of the abdomen. Bowel sounds are positive in all 4 quadrants. GENITOURINARY: Deferred. EXTREMITIES: No cyanosis, no clubbing, no edema. Peripheral pulses are palpable. NEUROLOGIC: The patient is awake, alert, and oriented. Cranial nerves are grossly intact. Results Result Diagram: 01/25/1718 01/25/1718 Results 24 hrs Laboratory Tests Test 01/25/17 05:18 White Blood Count 9.8 Red Blood Count 3.43 L Hemoglobin 9.1 L Hematocrit 28.6 L Mean Corpuscular Volume 83.4 Mean Corpuscular Hemoglobin 26.5 L Mean Corpuscular Hemoglobin Concent 31.8 L Red Cell Distribution Width 16.0 H Platelet Count 764 H Mean Platelet Volume 9.0 Neutrophils % 72.3 Lymphocytes % 18.4 Monocytes % 7.2 Eosinophils % 0.9 Basophils % 0.2 Nucleated Red Blood Cells % 0.0 Neutrophils # 7.1 Lymphocytes # 1.8 Monocytes # 0.7 Eosinophils # 0.1 Basophils # 0.0 Nucleated Red Blood Cells # 0.0 Sodium Level 137 Potassium Level 4.1 Chloride Level 102 Carbon Dioxide Level 27 Anion Gap 12 Blood Urea Nitrogen 8 Creatinine 0.53 Glucose Level 100 Calcium Level 8.9 Phosphorus Level 4.9 Magnesium Level 2.1 Total Bilirubin 0.1 L Direct Bilirubin 0.00 Indirect Bilirubin 0.1 Aspartate Amino Transf (AST/SGOT) 48 H Alanine Aminotransferase (ALT/SGPT) 54 Alkaline Phosphatase 399 H Total Protein 7.9 Albumin 3.8 Globulin 4.10 H Albumin/Globulin Ratio 0.92 Medications Medications Current Medications Ondansetron HCl (Zofran Inj) 4 mg Q6H PRN IV NAUSEA AND/OR VOMITING Last administered on 01/24/17 05:38; Admin Dose 4 MG; Start 01/17/17 at 00:30 Morphine Sulfate (morphine) 2 mg Q4H PRN IV SEVERE PAIN LEVEL 7-10 Last administered on 01/21/17 08:43; Admin Dose 2 MG; Start 01/17/17 at 00:30 IV Flush (NS 10 ml) 10 ml TID IV Last administered on 01/25/17 09:36; Admin Dose 10 ML; Start 01/18/17 at 13:00 Acetaminophen/ Hydrocodone Bitart ([place] (7.5-325)) 1 tab Q4H PRN PO PAIN LEVEL 8-10 Last administered on 01/24/17 21:41; Admin Dose 1 TAB; Start at 12:30 Pantoprazole (Protonix Tab) 40 mg DAILY@06 PO Last administered on 01/25/17 06 :03; Admin Dose 40 MG; Start 01/20/17 at 06:00 IV Flush (NS 10 ml) 10 ml PRN PRN IV FLUSH LINE; Start 01/20/17 at 07:00 IV Flush (NS 10 ml) 10 ml PRN PRN IV FLUSH LINE; Start 01/20/17 at 07:00 IV Flush (NS 10 ml) 20 ml PRN PRN IV FLUSH LINE; Start 01/20/17 at 07:00 Heparin Sodium (Porcine) (Heparin Flush (10 Units/ml)) 50 unit PRN PRN IV LUMENS NOT IN USE; Start 01/20/17 at 07:00 Acetaminophen (Tylenol Tab) 650 mg Q4H PRN PO MILD PAIN LEVEL 1-3; Start at 07:00 Fish Oil 2000 mg 2,000 mg BID PO Last administered on 01/25/17 09:35; Admin Dose 2,000 MG; Start 01/21/17 at 21:00 Ceftriaxone Sodium (Rocephin) 50 ml @ 100 mls/hr Q24H IVPB Last administered on 01/24/17 18:16; Admin Dose 100 MLS/HR; Start 01/21/17 at 17:30 Saccharomyces Boulardii (Florastor) 500 mg BID PO Last administered on 09:35; Admin Dose 500 MG; Start 01/23/17 at 21:00 DELMY VILLATORO NP Jan 25, 2017 10:40
--- NOTE | 2017-01-25 13:07 | CONS ---
Date/Time of Note Date/Time of Note DATE: 01/25/17 TIME: 13:04 Assessment/Plan Assessment/Plan Chief Complaint/Hosp Course IMP: 1.Pericardial effusion-does not appear to have HD consequence by VS 2.Liver abscess s/p drainage 3.Bacteremia 4.anemia REcc: -Await repeat echo to asses significance of pericardial effusion seen by CT -Continue abx's -Follow drain output Problems: Consultation Date/Type/Reason Admit Date/Time Jan 17, 2017 at 00:20 Initial Consult Date 01/24/17 Type of Consultation: Cardiology Reason for Consultation pericardial effusion Referring Provider: DELMY VILLATORO NP Exam/Review of Systems Vital Signs Vitals Vital Signs Date Time Temp Pulse Resp B/P Pulse Ox O2 Delivery O2 Flow Rate FiO2 01/25/17 07:40 97.9 89 18 111/59 96 01/22/17 08:00 Nasal Cannula 1.0 Intake and Output 01/24/17 01/24/17 01/25/17 15:00 23:00 07:00 Intake Total 1110 ml 580 ml Output Total 600 ml 5 ml Balance 510 ml 575 ml Exam Review of Systems: CONSTITUTIONAL: No fevers, chills. PULMONARY: No sob CARDIOVASCULAR: No chest pain/palpitations GASTROINTESTINAL: No nausea/vomiting. GENITOURINARY: No hematuria/dysuria. MUSCULOSKELETAL: No myagias/arthalgias. PSYCHIATRIC: The patient denies depression. NEUROLOGIC: No weakness Constitutional: alert Psych: no complaints Head: normocephalic ENMT: mucosa pink and moist Neck: jvd (9 cm water), supple Respiratory: diminished breath sounds (at bases/B) Cardiovascular: regular rate and rhythm Gastrointestinal: non-tender, soft Musculoskeletal: muscle tone (normal) Extremities: edema (none) Neurological: other (NO focal deficits) Results Result Diagram: 01/25/1718 01/25/17 0518 Results 24 hrs Laboratory Tests Test 01/25/17 05:18 White Blood Count 9.8 Red Blood Count 3.43 L Hemoglobin 9.1 L Hematocrit 28.6 L Mean Corpuscular Volume 83.4 Mean Corpuscular Hemoglobin 26.5 L Mean Corpuscular Hemoglobin Concent 31.8 L Red Cell Distribution Width 16.0 H Platelet Count 764 H Mean Platelet Volume 9.0 Neutrophils % 72.3 Lymphocytes % 18.4 Monocytes % 7.2 Eosinophils % 0.9 Basophils % 0.2 Nucleated Red Blood Cells % 0.0 Neutrophils # 7.1 Lymphocytes # 1.8 Monocytes # 0.7 Eosinophils # 0.1 Basophils # 0.0 Nucleated Red Blood Cells # 0.0 Sodium Level 137 Potassium Level 4.1 Chloride Level 102 Carbon Dioxide Level 27 Anion Gap 12 Blood Urea Nitrogen 8 Creatinine 0.53 Glucose Level 100 Calcium Level 8.9 Phosphorus Level 4.9 Magnesium Level 2.1 Total Bilirubin 0.1 L Direct Bilirubin 0.00 Indirect Bilirubin 0.1 Aspartate Amino Transf (AST/SGOT) 48 H Alanine Aminotransferase (ALT/SGPT) 54 Alkaline Phosphatase 399 H Total Protein 7.9 Albumin 3.8 Globulin 4.10 H Albumin/Globulin Ratio 0.92 Medications Medications Current Medications Ondansetron HCl (Zofran Inj) 4 mg Q6H PRN IV NAUSEA AND/OR VOMITING Last administered on 01/24/17 05:38; Admin Dose 4 MG; Start 01/17/17 at 00:30 Morphine Sulfate (morphine) 2 mg Q4H PRN IV SEVERE PAIN LEVEL 7-10 Last administered on 01/21/17 08:43; Admin Dose 2 MG; Start 01/17/17 at 00:30 IV Flush (NS 10 ml) 10 ml TID IV Last administered on 01/25/17 09:36; Admin Dose 10 ML; Start 01/18/17 at 13:00 Acetaminophen/ Hydrocodone Bitart ([place] (7.5-325)) 1 tab Q4H PRN PO PAIN LEVEL 8-10 Last administered on 01/24/17 21:41; Admin Dose 1 TAB; Start at 12:30 Pantoprazole (Protonix Tab) 40 mg DAILY@06 PO Last administered on 01/25/17 06 :03; Admin Dose 40 MG; Start 01/20/17 at 06:00 IV Flush (NS 10 ml) 10 ml PRN PRN IV FLUSH LINE; Start 01/20/17 at 07:00 IV Flush (NS 10 ml) 10 ml PRN PRN IV FLUSH LINE; Start 01/20/17 at 07:00 IV Flush (NS 10 ml) 20 ml PRN PRN IV FLUSH LINE; Start 01/20/17 at 07:00 Heparin Sodium (Porcine) (Heparin Flush (10 Units/ml)) 50 unit PRN PRN IV LUMENS NOT IN USE; Start 01/20/17 at 07:00 Acetaminophen (Tylenol Tab) 650 mg Q4H PRN PO MILD PAIN LEVEL 1-3; Start at 07:00 Fish Oil 2000 mg 2,000 mg BID PO Last administered on 01/25/17 09:35; Admin Dose 2,000 MG; Start 01/21/17 at 21:00 Ceftriaxone Sodium (Rocephin) 50 ml @ 100 mls/hr Q24H IVPB Last administered on 01/24/17 18:16; Admin Dose 100 MLS/HR; Start 01/21/17 at 17:30 Saccharomyces Boulardii (Florastor) 500 mg BID PO Last administered on 09:35; Admin Dose 500 MG; Start 01/23/17 at 21:00 JB QUIROS Jan 25, 2017 13:06
--- NOTE | 2017-01-25 13:17 | CONS ---
Date/Time of Note Date/Time of Note DATE: 01/25/17 TIME: 13:14 Assessment/Plan Assessment/Plan Chief Complaint/Hosp Course SUBJECTIVE: No acute changes. The patient is alert. Looks comfortable. No fevers. MICROBIOLOGY: Blood culture growing alpha hemolytic strep species. Repeat blood cultures negative. C dif negative ANTIMICROBIALS: Rocephin. INDWELLINGS: PICC line and intraabdominal drainage catheters. PHYSICAL EXAMINATION: GENERAL: Well-developed, well-nourished, middle-aged woman who is awake, in no distress. HEENT: Head atraumatic, normocephalic. Sclerae anicteric. Buccal mucosa dry. NECK: Supple. CHEST: Rise symmetrical. Breath sounds clear. HEART: S1, S2. ABDOMEN: Soft, bowel sounds present. EXTREMITIES: Without cyanosis. ASSESSMENT: 1. Resolving sepsis. 2. Streptococcal bacteremia 2 to #3 with repeat blood cultures negative. 3. Status post CT-guided liver abscess drainage, repeat CT revealed previously seen 9 cm hepatic abscess is decreased in size, now measuring about 7 cm.. 4. Anemia. 5. Status post acute kidney injury. PLAN: Remain stable, given persistence of her abscess will keep on IV antibiotics, patient has PICC line, registered nurse hh case manager to arrange discharge home on current antibiotics. Patient to see surgery as an outpatient for further recommendations [facility] staff Problems: Consultation Date/Type/Reason Admit Date/Time Jan 17, 2017 at 00:20 Initial Consult Date 01/18/17 Type of Consultation: Infectious disease Referring Provider: DELMY VILLATORO AUTOMOTIVE MANAGER Exam/Review of Systems Vital Signs Vitals Vital Signs Date Time Temp Pulse Resp B/P Pulse Ox O2 Delivery O2 Flow Rate FiO2 01/25/17 07:40 97.9 89 18 111/59 96 01/22/17 08:00 Nasal Cannula 1.0 Intake and Output 01/24/17 01/24/17 01/25/17 15:00 23:00 07:00 Intake Total 1110 ml 580 ml Output Total 600 ml 5 ml Balance 510 ml 575 ml Results Result Diagram: 01/25/17 0518 01/25/17 0518 Results 24 hrs Laboratory Tests Test 01/25/17 05:18 White Blood Count 9.8 Red Blood Count 3.43 L Hemoglobin 9.1 L Hematocrit 28.6 L Mean Corpuscular Volume 83.4 Mean Corpuscular Hemoglobin 26.5 L Mean Corpuscular Hemoglobin Concent 31.8 L Red Cell Distribution Width 16.0 H Platelet Count 764 H Mean Platelet Volume 9.0 Neutrophils % 72.3 Lymphocytes % 18.4 Monocytes % 7.2 Eosinophils % 0.9 Basophils % 0.2 Nucleated Red Blood Cells % 0.0 Neutrophils # 7.1 Lymphocytes # 1.8 Monocytes # 0.7 Eosinophils # 0.1 Basophils # 0.0 Nucleated Red Blood Cells # 0.0 Sodium Level 137 Potassium Level 4.1 Chloride Level 102 Carbon Dioxide Level 27 Anion Gap 12 Blood Urea Nitrogen 8 Creatinine 0.53 Glucose Level 100 Calcium Level 8.9 Phosphorus Level 4.9 Magnesium Level 2.1 Total Bilirubin 0.1 L Direct Bilirubin 0.00 Indirect Bilirubin 0.1 Aspartate Amino Transf (AST/SGOT) 48 H Alanine Aminotransferase (ALT/SGPT) 54 Alkaline Phosphatase 399 H Total Protein 7.9 Albumin 3.8 Globulin 4.10 H Albumin/Globulin Ratio 0.92 Medications Medications Current Medications Ondansetron HCl (Zofran Inj) 4 mg Q6H PRN IV NAUSEA AND/OR VOMITING Last administered on 01/24/17 05:38; Admin Dose 4 MG; Start 01/17/17 at 00:30 Morphine Sulfate (morphine) 2 mg Q4H PRN IV SEVERE PAIN LEVEL 7-10 Last administered on 01/21/17 08:43; Admin Dose 2 MG; Start 01/17/17 at 00:30 IV Flush (NS 10 ml) 10 ml TID IV Last administered on 01/25/17 09:36; Admin Dose 10 ML; Start 01/18/17 at 13:00 Acetaminophen/ Hydrocodone Bitart ([place] (7.5-325)) 1 tab Q4H PRN PO PAIN LEVEL 8-10 Last administered on 01/24/17 21:41; Admin Dose 1 TAB; Start at 12:30 Pantoprazole (Protonix Tab) 40 mg DAILY@06 PO Last administered on 01/25/17 06 :03; Admin Dose 40 MG; Start 01/20/17 at 06:00 IV Flush (NS 10 ml) 10 ml PRN PRN IV FLUSH LINE; Start 01/20/17 at 07:00 IV Flush (NS 10 ml) 10 ml PRN PRN IV FLUSH LINE; Start 01/20/17 at 07:00 IV Flush (NS 10 ml) 20 ml PRN PRN IV FLUSH LINE; Start 01/20/17 at 07:00 Heparin Sodium (Porcine) (Heparin Flush (10 Units/ml)) 50 unit PRN PRN IV LUMENS NOT IN USE; Start 01/20/17 at 07:00 Acetaminophen (Tylenol Tab) 650 mg Q4H PRN PO MILD PAIN LEVEL 1-3; Start at 07:00 Fish Oil 2000 mg 2,000 mg BID PO Last administered on 01/25/17 09:35; Admin Dose 2,000 MG; Start 01/21/17 at 21:00 Ceftriaxone Sodium (Rocephin) 50 ml @ 100 mls/hr Q24H IVPB Last administered on 01/24/17 18:16; Admin Dose 100 MLS/HR; Start 01/21/17 at 17:30 Saccharomyces Boulardii (Florastor) 500 mg BID PO Last administered on 09:35; Admin Dose 500 MG; Start 01/23/17 at 21:00 USHA ALVARES NP Jan 25, 2017 13:16
[2017-01-25] MEDS: HYDROCODONE/APAP (7.5/325) TAB PO PRN ×2 (15:58→21:39)
[2017-01-25] MEDS: CEFTRIAXONE 1 GM/50 ML (PMX) 50 ML IVPB SCH (17:51)
--- NOTE | 2017-01-25 20:06 | RADRPT ---
Echocardiogram Report Patient Name: ERMIAS LARA Gender: Female Date: 1975 Study Date: 25-Jan-2017 Chain Forming Machine Operator: [facility] Location: [id number] Ref. Physician: DELMY VILLATORO Quality: Adequate Procedures: Transthoracic echocardiogram examination. Indications: Evaluate Pericardial Effusion. Findings Left Ventricle: Normal left ventricular systolic function. The left ventricular ejection fraction is visually estimated at 60 %. Pericardium: Trivial effusion. IVC: Normal inferior vena cava appearance and respiratory collapse. Conclusions 1.Normal left ventricular systolic function. The left ventricular ejection fraction is visually estimated at 60 %. 2.Trivial effusion. Electronically Signed By: Mark Terrazas 25-Jan-2017 20:05:48 -0700 Patient Name: ERMIAS LARA Study Date: 25-Jan-2017 [id number]
[2017-01-25 20:08] VITALS: BP 119/72; PULSE 87; RESP 18
[2017-01-25] MEDS: ONDANSETRON 4 MG INJ IV PRN (21:09)
[2017-01-25] MEDS: morphine 2 MG INJ IV PRN (22:45)
[2017-01-26] MEDS: morphine 2 MG INJ IV PRN ×5 (02:39→22:15)
[2017-01-26 06:17] LABS: BASOPHIL # 0.1 10^3/ul (0.0-0.1); BASOPHILS % 0.6 % (0.0-2.0); EOSINOPHILS # 0.1 10^3/ul (0.0-0.5); EOSINOPHILS % 0.7 % (0.0-7.0); HEMATOCRIT 31.4 % (37.0-47.0); HEMOGLOBIN 10.3 g/dl (12.0-16.0); LYMPHOCYTES # 1.7 10^3/ul (0.8-2.9); LYMPHOCYTES % 18.9 % (15.0-51.0); MEAN CORPUSCULAR HGB CONC 32.8 g/dl (32.0-37.0); MEAN CORPUSCULAR VOLUME 82.4 fl (82.0-101.0); MEAN PLATELET VOLUME 8.9 fl (7.4-10.4); MONOCYTE # 0.6 10^3/ul (0.3-0.9); MONOCYTES % 6.9 % (0.0-11.0); NEUTROPHIL # 6.5 10^3/ul (1.6-7.5); NEUTROPHILS % 72.3 % (39.0-77.0); RED BLOOD COUNT 3.81 10^6/ul (4.20-5.40); RED CELL DISTRIBUTION WIDTH 15.9 % (11.5-14.5)
[2017-01-26] MEDS: PANTOPRAZOLE (EC) 40 MG TAB PO SCH (06:24)
[2017-01-26 06:48] LABS: MAGNESIUM 2.2 mg/dl (1.7-2.5)
[2017-01-26 06:54] LABS: ALBUMIN 3.8 g/dl (3.3-4.9); ALBUMIN/GLOBULIN RATIO 0.95; BILIRUBIN,INDIRECT 0.1 mg/dl (0-1.1); BILIRUBIN,TOTAL 0.1 mg/dl (0.2-1.3); CALCIUM 9.3 mg/dl (8.4-10.2); CREATININE 0.52 mg/dl (0.44-1.00); POTASSIUM 4.9 mmol/L (3.5-5.1); TOTAL PROTEIN 7.8 g/dl (6.1-8.1)
[2017-01-26 07:15] LABS: ADD SCAN DIFF NO; PLATELET COUNT 836 10^3/UL (140-415)
[2017-01-26 07:53] VITALS: BP 125/81; RESP 18
[2017-01-26] MEDS: SACCHAROMYCES BOULARDII 250 MG CAP PO SCH ×2 (08:57→20:51)
[2017-01-26] MEDS: FISH OIL 1,000 MG CAP PO SCH ×2 (08:57→20:51)
--- NOTE | 2017-01-26 11:47 | PN ---
Date/Time of Note Date/Time of Note DATE: 01/26/17 TIME: 11:45 Assessment/Plan VTE Prophylaxis VTE Prophylaxis Intervention: ambulation, SCD's Lines/Catheters IV Catheter Type (from Nrsg): PICC Line Central line still needed: Yes Urinary Cath still in place: No Assessment/Plan Chief Complaint/Hosp Course 1. Sepsis secondary to underlying liver abscess along with gram-positive bacteremia. Status post septic shock. Continue antibiotics as per Infectious Disease. 2. Acute kidney injury. Resolved. Being followed by Nephrology. 3. Hepatic abscess. Status post percutaneous drainage. The patient is being followed by hepatobiliary surgery. 4. Transaminitis without hyperbilirubinemia. Improving. Most probably secondary to underlying liver abscess. 5. Prediabetes. Hemoglobin A1c 6.3. We will monitor random blood glucose closely. If random glucose levels are high, we will start the patient on therapy. 6. Dyslipidemia with high triglycerides and low HDL. Continue fish oil. 7. Mild to moderate pericardial effusion on a CT scan. There was no pericardial effusion on the 2D echocardiogram that was done on 01/17/2017. Cardiology evaluation ongoing. Repeat 2D echocardiogram showing trivial pericardial effusion. 8. Fluid, electrolytes, and nutrition. Regular diet as tolerated. 9. Deep venous thrombosis prophylaxis. Bilateral sequential compression devices. 10. Gastrointestinal prophylaxis. Proton pump inhibitors. PLAN: Continue antibiotics as per infectious diseases. Await clearance from consultants before discharge. Case discussed with Dr. King. 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 Exam/Review of Systems Vital Signs Vitals Vital Signs Date Time Temp Pulse Resp B/P Pulse Ox O2 Delivery O2 Flow Rate FiO2 01/26/17 07:53 97.4 105 18 125/81 94 01/25/17 20:08 Room Air 01/22/17 08:00 1.0 Intake and Output 01/25/17 01/25/17 01/26/17 15:00 23:00 07:00 Intake Total 770 ml 480 ml Output Total 0 ml Balance 770 ml 480 ml Exam GENERAL: This is a 41-year-old female lying in bed in no apparent distress. HEENT: Head normocephalic and atraumatic. Eyes: Anicteric sclerae. Conjunctivae clear. ENT: Nasal septum is midline. Oral mucosa is moist. NECK: Supple. No JVD noticed. RESPIRATORY: Bilaterally clear to auscultation. No adventitious breath sounds. No use of accessory muscles of respiration. CARDIAC: Regular rate and rhythm. S1 and S2 heard. ABDOMEN: Soft, scaphoid. Two drains are present on the right side of the abdomen. Bowel sounds are positive in all 4 quadrants. GENITOURINARY: Deferred. EXTREMITIES: No cyanosis, no clubbing, no edema. Peripheral pulses are palpable. NEUROLOGIC: The patient is awake, alert, and oriented. Cranial nerves are grossly intact. Results Result Diagram: 01/26/17 0524 01/26/17 0513 Results 24 hrs Laboratory Tests Test 01/26/17 05:13 01/26/17 05:24 Sodium Level 139 Potassium Level 4.9 Chloride Level 103 Carbon Dioxide Level 24 Anion Gap 17 H Blood Urea Nitrogen 10 Creatinine 0.52 Glucose Level 108 Calcium Level 9.3 Phosphorus Level 5.0 H Magnesium Level 2.2 Total Bilirubin 0.1 L Direct Bilirubin 0.00 Indirect Bilirubin 0.1 Aspartate Amino Transf (AST/SGOT) 31 Alanine Aminotransferase (ALT/SGPT) 48 Alkaline Phosphatase 394 H Total Protein 7.8 Albumin 3.8 Globulin 4.00 H Albumin/Globulin Ratio 0.95 White Blood Count 9.0 Red Blood Count 3.81 L Hemoglobin 10.3 L Hematocrit 31.4 L Mean Corpuscular Volume 82.4 Mean Corpuscular Hemoglobin 27.0 L Mean Corpuscular Hemoglobin Concent 32.8 Red Cell Distribution Width 15.9 H Platelet Count 836 H Mean Platelet Volume 8.9 Neutrophils % 72.3 Lymphocytes % 18.9 Monocytes % 6.9 Eosinophils % 0.7 Basophils % 0.6 Nucleated Red Blood Cells % 0.0 Neutrophils # 6.5 Lymphocytes # 1.7 Monocytes # 0.6 Eosinophils # 0.1 Basophils # 0.1 Nucleated Red Blood Cells # 0.0 Medications Medications Current Medications Ondansetron HCl (Zofran Inj) 4 mg Q6H PRN IV NAUSEA AND/OR VOMITING Last administered on 01/25/17 21:09; Admin Dose 4 MG; Start 01/17/17 at 00:30 Morphine Sulfate (morphine) 2 mg Q4H PRN IV SEVERE PAIN LEVEL 7-10 Last administered on 01/26/17 10:46; Admin Dose 2 MG; Start 01/17/17 at 00:30 IV Flush (NS 10 ml) 10 ml TID IV Last administered on 01/26/17 08:58; Admin Dose 10 ML; Start 01/18/17 at 13:00 Acetaminophen/ Hydrocodone Bitart ([place] (7.5-325)) 1 tab Q4H PRN PO PAIN LEVEL 8-10 Last administered on 01/25/17 21:39; Admin Dose 1 TAB; Start at 12:30 Pantoprazole (Protonix Tab) 40 mg DAILY@06 PO Last administered on 01/26/17 06 :24; Admin Dose 40 MG; Start 01/20/17 at 06:00 IV Flush (NS 10 ml) 10 ml PRN PRN IV FLUSH LINE; Start 01/20/17 at 07:00 IV Flush (NS 10 ml) 10 ml PRN PRN IV FLUSH LINE; Start 01/20/17 at 07:00 IV Flush (NS 10 ml) 20 ml PRN PRN IV FLUSH LINE; Start 01/20/17 at 07:00 Heparin Sodium (Porcine) (Heparin Flush (10 Units/ml)) 50 unit PRN PRN IV LUMENS NOT IN USE; Start 01/20/17 at 07:00 Acetaminophen (Tylenol Tab) 650 mg Q4H PRN PO MILD PAIN LEVEL 1-3; Start at 07:00 Fish Oil 2000 mg 2,000 mg BID PO Last administered on 01/26/17 08:57; Admin Dose 2,000 MG; Start 01/21/17 at 21:00 Ceftriaxone Sodium (Rocephin) 50 ml @ 100 mls/hr Q24H IVPB Last administered on 01/25/17 17:51; Admin Dose 100 MLS/HR; Start 01/21/17 at 17:30 Saccharomyces Boulardii (Florastor) 500 mg BID PO Last administered on 08:57; Admin Dose 500 MG; Start 01/23/17 at 21:00 DELMY VILLATORO NP Jan 26, 2017 11:47
--- NOTE | 2017-01-26 13:59 | CONS ---
Date/Time of Note Date/Time of Note DATE: 01/26/17 TIME: 13:57 Assessment/Plan Assessment/Plan Chief Complaint/Hosp Course IMP: 1.Pericardial effusion-does not appear to have HD consequence by VS. Echo 01/25 trace effusion only 2.Liver abscess s/p drainage 3.Bacteremia 4.anemia REcc: -Continue abx's -Follow drain output -Continue current management Problems: Consultation Date/Type/Reason Admit Date/Time Jan 17, 2017 at 00:20 Initial Consult Date 01/24/17 Type of Consultation: cardiology Reason for Consultation pericardial effusion Referring Provider: DELMY VILLATORO [employer]END[employer]OR Exam/Review of Systems Vital Signs Vitals Vital Signs Date Time Temp Pulse Resp B/P Pulse Ox O2 Delivery O2 Flow Rate FiO2 01/26/17 07:53 97.4 105 18 125/81 94 01/25/17 20:08 Room Air 01/22/17 08:00 1.0 Intake and Output 01/25/17 01/25/17 01/26/17 15:00 23:00 07:00 Intake Total 770 ml 480 ml Output Total 0 ml Balance 770 ml 480 ml Exam Review of Systems: CONSTITUTIONAL: No fevers, chills. PULMONARY: No sob CARDIOVASCULAR: No chest pain/palpitations GASTROINTESTINAL: No nausea/vomiting. GENITOURINARY: No hematuria/dysuria. MUSCULOSKELETAL: No myagias/arthalgias. PSYCHIATRIC: The patient denies depression. NEUROLOGIC: No weakness Constitutional: alert, oriented Psych: no complaints Head: normocephalic ENMT: mucosa pink and moist Neck: jvd (8cm water), supple Respiratory: diminished breath sounds (at bases/B) Cardiovascular: regular rate and rhythm Gastrointestinal: non-tender, soft Musculoskeletal: muscle tone (normal) Extremities: edema (none) Neurological: other (No focal deficits) Results Result Diagram: 01/26/17 0524 01/26/17 0513 Results 24 hrs Laboratory Tests Test 01/26/17 05:13 01/26/17 05:24 Sodium Level 139 Potassium Level 4.9 Chloride Level 103 Carbon Dioxide Level 24 Anion Gap 17 H Blood Urea Nitrogen 10 Creatinine 0.52 Glucose Level 108 Calcium Level 9.3 Phosphorus Level 5.0 H Magnesium Level 2.2 Total Bilirubin 0.1 L Direct Bilirubin 0.00 Indirect Bilirubin 0.1 Aspartate Amino Transf (AST/SGOT) 31 Alanine Aminotransferase (ALT/SGPT) 48 Alkaline Phosphatase 394 H Total Protein 7.8 Albumin 3.8 Globulin 4.00 H Albumin/Globulin Ratio 0.95 White Blood Count 9.0 Red Blood Count 3.81 L Hemoglobin 10.3 L Hematocrit 31.4 L Mean Corpuscular Volume 82.4 Mean Corpuscular Hemoglobin 27.0 L Mean Corpuscular Hemoglobin Concent 32.8 Red Cell Distribution Width 15.9 H Platelet Count 836 H Mean Platelet Volume 8.9 Neutrophils % 72.3 Lymphocytes % 18.9 Monocytes % 6.9 Eosinophils % 0.7 Basophils % 0.6 Nucleated Red Blood Cells % 0.0 Neutrophils # 6.5 Lymphocytes # 1.7 Monocytes # 0.6 Eosinophils # 0.1 Basophils # 0.1 Nucleated Red Blood Cells # 0.0 Medications Medications Current Medications Ondansetron HCl (Zofran Inj) 4 mg Q6H PRN IV NAUSEA AND/OR VOMITING Last administered on 01/25/17 21:09; Admin Dose 4 MG; Start 01/17/17 at 00:30 Morphine Sulfate (morphine) 2 mg Q4H PRN IV SEVERE PAIN LEVEL 7-10 Last administered on 01/26/17 10:46; Admin Dose 2 MG; Start 01/17/17 at 00:30 IV Flush (NS 10 ml) 10 ml TID IV Last administered on 01/26/17 13:09; Admin Dose 10 ML; Start 01/18/17 at 13:00 Acetaminophen/ Hydrocodone Bitart ([place] (7.5-325)) 1 tab Q4H PRN PO PAIN LEVEL 8-10 Last administered on 01/25/17 21:39; Admin Dose 1 TAB; Start at 12:30 Pantoprazole (Protonix Tab) 40 mg DAILY@06 PO Last administered on 01/26/17 06 :24; Admin Dose 40 MG; Start 01/20/17 at 06:00 IV Flush (NS 10 ml) 10 ml PRN PRN IV FLUSH LINE; Start 01/20/17 at 07:00 IV Flush (NS 10 ml) 10 ml PRN PRN IV FLUSH LINE; Start 01/20/17 at 07:00 IV Flush (NS 10 ml) 20 ml PRN PRN IV FLUSH LINE; Start 01/20/17 at 07:00 Heparin Sodium (Porcine) (Heparin Flush (10 Units/ml)) 50 unit PRN PRN IV LUMENS NOT IN USE; Start 01/20/17 at 07:00 Acetaminophen (Tylenol Tab) 650 mg Q4H PRN PO MILD PAIN LEVEL 1-3; Start at 07:00 Fish Oil 2000 mg 2,000 mg BID PO Last administered on 01/26/17 08:57; Admin Dose 2,000 MG; Start 01/21/17 at 21:00 Ceftriaxone Sodium (Rocephin) 50 ml @ 100 mls/hr Q24H IVPB Last administered on 01/25/17 17:51; Admin Dose 100 MLS/HR; Start 01/21/17 at 17:30 Saccharomyces Boulardii (Florastor) 500 mg BID PO Last administered on 08:57; Admin Dose 500 MG; Start 01/23/17 at 21:00 JB QUIROS Jan 26, 2017 13:59
--- NOTE | 2017-01-26 15:27 | CONS ---
Date/Time of Note Date/Time of Note DATE: 01/26/17 TIME: 15:26 Assessment/Plan Assessment/Plan Chief Complaint/Hosp Course SUBJECTIVE: No acute changes. The patient is alert, on and off pain at right sided abdominal drainage catheters. Looks comfortable. No fevers. MICROBIOLOGY: Blood culture growing alpha hemolytic strep species. Repeat blood cultures negative. C dif negative ANTIMICROBIALS: Rocephin. INDWELLINGS: PICC line and intraabdominal drainage catheters. PHYSICAL EXAMINATION: GENERAL: Well-developed, well-nourished, middle-aged woman who is awake, in no distress. HEENT: Head atraumatic, normocephalic. Sclerae anicteric. Buccal mucosa dry. NECK: Supple. CHEST: Rise symmetrical. Breath sounds clear. HEART: S1, S2. ABDOMEN: Soft, bowel sounds present. EXTREMITIES: Without cyanosis. ASSESSMENT: 1. Resolving sepsis. 2. Streptococcal bacteremia 2 to #3 with repeat blood cultures negative. 3. Status post CT-guided liver abscess drainage, repeat CT revealed previously seen 9 cm hepatic abscess measuring about 7 cm.. 4. Anemia. 5. Status post acute kidney injury. 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 Patient to see surgery as an outpatient for further recommendations [facility] staff Problems: Consultation Date/Type/Reason Admit Date/Time Jan 17, 2017 at 00:20 Initial Consult Date 01/18/17 Type of Consultation: Infectious disease Referring Provider: DELMY VILLATORO [employer]KER Exam/Review of Systems Vital Signs Vitals Vital Signs Date Time Temp Pulse Resp B/P Pulse Ox O2 Delivery O2 Flow Rate FiO2 01/26/17 07:53 97.4 105 18 125/81 94 01/25/17 20:08 Room Air 01/22/17 08:00 1.0 Intake and Output 01/25/17 01/25/17 01/26/17 15:00 23:00 07:00 Intake Total 770 ml 480 ml Output Total 0 ml Balance 770 ml 480 ml Results Result Diagram: 01/26/17 0524 01/26/17 0513 Results 24 hrs Laboratory Tests Test 01/26/17 05:13 01/26/17 05:24 Sodium Level 139 Potassium Level 4.9 Chloride Level 103 Carbon Dioxide Level 24 Anion Gap 17 H Blood Urea Nitrogen 10 Creatinine 0.52 Glucose Level 108 Calcium Level 9.3 Phosphorus Level 5.0 H Magnesium Level 2.2 Total Bilirubin 0.1 L Direct Bilirubin 0.00 Indirect Bilirubin 0.1 Aspartate Amino Transf (AST/SGOT) 31 Alanine Aminotransferase (ALT/SGPT) 48 Alkaline Phosphatase 394 H Total Protein 7.8 Albumin 3.8 Globulin 4.00 H Albumin/Globulin Ratio 0.95 White Blood Count 9.0 Red Blood Count 3.81 L Hemoglobin 10.3 L Hematocrit 31.4 L Mean Corpuscular Volume 82.4 Mean Corpuscular Hemoglobin 27.0 L Mean Corpuscular Hemoglobin Concent 32.8 Red Cell Distribution Width 15.9 H Platelet Count 836 H Mean Platelet Volume 8.9 Neutrophils % 72.3 Lymphocytes % 18.9 Monocytes % 6.9 Eosinophils % 0.7 Basophils % 0.6 Nucleated Red Blood Cells % 0.0 Neutrophils # 6.5 Lymphocytes # 1.7 Monocytes # 0.6 Eosinophils # 0.1 Basophils # 0.1 Nucleated Red Blood Cells # 0.0 Medications Medications Current Medications Ondansetron HCl (Zofran Inj) 4 mg Q6H PRN IV NAUSEA AND/OR VOMITING Last administered on 01/25/17 21:09; Admin Dose 4 MG; Start 01/17/17 at 00:30 Morphine Sulfate (morphine) 2 mg Q4H PRN IV SEVERE PAIN LEVEL 7-10 Last administered on 01/26/17 10:46; Admin Dose 2 MG; Start 01/17/17 at 00:30 IV Flush (NS 10 ml) 10 ml TID IV Last administered on 01/26/17 13:09; Admin Dose 10 ML; Start 01/18/17 at 13:00 Acetaminophen/ Hydrocodone Bitart ([place] (7.5-325)) 1 tab Q4H PRN PO PAIN LEVEL 8-10 Last administered on 01/25/17 21:39; Admin Dose 1 TAB; Start at 12:30 Pantoprazole (Protonix Tab) 40 mg DAILY@06 PO Last administered on 01/26/17 06 :24; Admin Dose 40 MG; Start 01/20/17 at 06:00 IV Flush (NS 10 ml) 10 ml PRN PRN IV FLUSH LINE; Start 01/20/17 at 07:00 IV Flush (NS 10 ml) 10 ml PRN PRN IV FLUSH LINE; Start 01/20/17 at 07:00 IV Flush (NS 10 ml) 20 ml PRN PRN IV FLUSH LINE; Start 01/20/17 at 07:00 Heparin Sodium (Porcine) (Heparin Flush (10 Units/ml)) 50 unit PRN PRN IV LUMENS NOT IN USE; Start 01/20/17 at 07:00 Acetaminophen (Tylenol Tab) 650 mg Q4H PRN PO MILD PAIN LEVEL 1-3; Start at 07:00 Fish Oil 2000 mg 2,000 mg BID PO Last administered on 01/26/17 08:57; Admin Dose 2,000 MG; Start 01/21/17 at 21:00 Ceftriaxone Sodium (Rocephin) 50 ml @ 100 mls/hr Q24H IVPB Last administered on 01/25/17 17:51; Admin Dose 100 MLS/HR; Start 01/21/17 at 17:30 Saccharomyces Boulardii (Florastor) 500 mg BID PO Last administered on 08:57; Admin Dose 500 MG; Start 01/23/17 at 21:00 USHA ALVARES NP Jan 26, 2017 15:27
[2017-01-26] MEDS: HYDROCODONE/APAP (7.5/325) TAB PO PRN (15:55)
[2017-01-26] MEDS: CEFTRIAXONE 1 GM/50 ML (PMX) 50 ML IVPB SCH (17:57)
[2017-01-26 20:13] VITALS: BP 109/63; RESP 18
--- NOTE | 2017-01-26 22:49 | PN ---
Date/Time of Note Date/Time of Note DATE: 01/26/17 TIME: 13:48 Assessment/Plan Lines/Catheters IV Catheter Type (from Nrsg): PICC Line Esquivel in Place (from Nrs): No Assessment/Plan Assessment/Plan [facility] Progress Note Date of Service: 01/26/17 Today's Impression & Plan: Overall stable and continues to improve. No indication for acute surgical intervention. Liver abscesses appear well controlled with the drains and no bile communication seen. Minimal output and ss. Still has large enough abnormalities around both drains that they should stay for now. Hoping for d/c home today or tomorrow with oral conversion of antimicrobials. With above assessment, I've recommended the following for today: 1. Ok to d/c home from my standpoint 2. Drain care education with flushing each drain with 10 cc NS per day 3. May need home health nurse visit set up 4. F/u with me in the office in 1-2 weeks Thank you again for your great care of this very pleasant patient and wonderful family. If there are any questions, please feel free to call me at [phone]. TOTAL VISIT TIME: 20 minutes of which more than half was spent in [id number] discussion with the patient, possibly including family, as well as coordination of care between multiple physicians and providers. Disclaimer: Inadvertent spelling or grammatical errors are likely due to EHR/ dictation software use and do not reflect on the overall quality of patient care. Updated Clinical Summary: The patient is a very pleasant 41-year-old lady with comorbidities including BMI 25.4 who presented through the emergency department at [facility] on 01/16/2017 with multiple hepatic abscesses, status post percutaneous drainage procedure 01/17/17 at [facility]. COMORBIDITIES: 1. BMI 25.4. 2. Possible prediabetes given the elevated hemoglobin A1c 3. Sepsis with two liver abscesses in the right lobe of the liver, status post percutaneous drainage procedure 01/17/17 at [facility]. Subjective: No major events or complaints; no abd pain and under control with medications; slightly sore at the site of drain insertions; no n/v/d; no sob or cp; + bowel activity; minimal activity Objective: Vitals: See below Exam: GENERAL: On exam, the patient was sitting up in a chair and appeared to be comfortable and in no acute distress. ABDOMEN: Soft, nontender and nondistended. Perc hepatic drains both ss without obvious bile and minimal outputs. There are no peritoneal signs or guarding. SKIN: Skin appears to be pink and feels warm to touch. NEUROLOGIC: Patient is awake, alert, and follows commands appropriately. Exam/Review of Systems Vital Signs Vitals Vital Signs Date Time Temp Pulse Resp B/P Pulse Ox O2 Delivery O2 Flow Rate FiO2 01/26/17 20:13 98.7 74 18 109/63 97 01/25/17 20:08 Room Air 01/22/17 08:00 1.0 Intake and Output 01/25/17 01/25/17 01/26/17 15:00 23:00 07:00 Intake Total 770 ml 480 ml Output Total 0 ml Balance 770 ml 480 ml Results Result Diagram: 01/26/17 0524 01/26/17 0513 RALF MG M.D. Jan 26, 2017 22:49
[2017-01-27] MEDS: morphine 2 MG INJ IV PRN ×3 (03:58→15:10)
[2017-01-27] MEDS: PANTOPRAZOLE (EC) 40 MG TAB PO SCH (05:39)
[2017-01-27 07:06] LABS: BASOPHILS % 0.6 % (0.0-2.0); EOSINOPHILS # 0.1 10^3/ul (0.0-0.5); EOSINOPHILS % 1.1 % (0.0-7.0); HEMATOCRIT 23.2 % (37.0-47.0); HEMOGLOBIN 7.4 g/dl (12.0-16.0); LYMPHOCYTES # 1.4 10^3/ul (0.8-2.9); LYMPHOCYTES % 19.1 % (15.0-51.0); MEAN CORPUSCULAR HEMOGLOBIN 26.9 pg (29.0-33.0); MEAN CORPUSCULAR HGB CONC 31.9 g/dl (32.0-37.0); MEAN CORPUSCULAR VOLUME 84.4 fl (82.0-101.0); MEAN PLATELET VOLUME 8.8 fl (7.4-10.4); MONOCYTE # 0.5 10^3/ul (0.3-0.9); MONOCYTES % 7.5 % (0.0-11.0); NEUTROPHIL # 5.2 10^3/ul (1.6-7.5); NEUTROPHILS % 71.1 % (39.0-77.0); PLATELET COUNT 637 10^3/UL (140-415); RED BLOOD COUNT 2.75 10^6/ul (4.20-5.40); RED CELL DISTRIBUTION WIDTH 15.7 % (11.5-14.5); WHITE BLOOD COUNT 7.2 10^3/ul (4.8-10.8)
[2017-01-27 07:29] LABS: ALBUMIN 2.7 g/dl (3.3-4.9); ALBUMIN/GLOBULIN RATIO 0.84; BILIRUBIN,INDIRECT 0.1 mg/dl (0-1.1); BILIRUBIN,TOTAL 0.1 mg/dl (0.2-1.3); CALCIUM 7.1 mg/dl (8.4-10.2); CREATININE 0.39 mg/dl (0.44-1.00); POTASSIUM 3.7 mmol/L (3.5-5.1); TOTAL PROTEIN 5.9 g/dl (6.1-8.1)
[2017-01-27 07:35] LABS: MAGNESIUM 1.6 mg/dl (1.7-2.5); PHOSPHORUS 3.3 mg/dl (2.5-4.9)
[2017-01-27 07:57] VITALS: BP 119/78; RESP 18
[2017-01-27] MEDS: SACCHAROMYCES BOULARDII 250 MG CAP PO SCH ×2 (08:52→20:16)
[2017-01-27] MEDS: FISH OIL 1,000 MG CAP PO SCH ×2 (08:52→20:16)
--- NOTE | 2017-01-27 09:20 | PN ---
Date/Time of Note Date/Time of Note DATE: 01/27/17 TIME: 09:17 Assessment/Plan Lines/Catheters IV Catheter Type (from Nrsg): PICC Line Esquivel in Place (from Nrsg): No Assessment/Plan Assessment/Plan [facility] Progress Note Date of Service: 01/27/17 Today's Impression & Plan: Overall stable and continues to improve. No indication for acute surgical intervention. Liver abscesses appear well controlled with the drains and no bile communication seen. Minimal output and ss. Still has large enough abnormalities around both drains that they should stay for now. Pain complaints can be investigated with further imaging if needed (? US to start with). Do not see a surgical issue at this time. Dispo per primary service. With above assessment, I've recommended the following for today: 1. Dispo per primary service; may consider US to further investigate flank/side discomfort/pain complaints 2. Drain care education with flushing each drain with 10 cc NS per day 3. May need home health nurse visit set up 4. F/u with me in the office in 1-2 weeks Thank you again for your great care of this very pleasant patient and wonderful family. If there are any questions, please feel free to call me at [phone]. TOTAL VISIT TIME: 20 minutes of which more than half was spent in [id number] discussion with the patient, possibly including family, as well as coordination of care between multiple physicians and providers. Disclaimer: Inadvertent spelling or grammatical errors are likely due to EHR/ dictation software use and do not reflect on the overall quality of patient care. Updated Clinical Summary: The patient is a very pleasant 41-year-old lady with comorbidities including BMI 25.4 who presented through the emergency department at [facility] on 01/16/2017 with multiple hepatic abscesses, status post percutaneous drainage procedure 01/17/17 at [facility]. COMORBIDITIES: 1. BMI 25.4. 2. Possible prediabetes given the elevated hemoglobin A1c 3. Sepsis with two liver abscesses in the right lobe of the liver, status post percutaneous drainage procedure 01/17/17 at [facility]. Subjective: No major events or complaints; no anterior abd pain and under control with medications; still with flank discomfort and has been on morphine; no n/v/d; no sob or cp; + bowel activity; minimal activity Objective: Vitals: See below Exam: GENERAL: On exam, the patient was waking with her sister in the hallway and appeared to be comfortable and in no acute distress. ABDOMEN: Soft, nontender and nondistended. Perc hepatic drains both ss without obvious bile and minimal outputs. There are no peritoneal signs or guarding. SKIN: Skin appears to be pink and feels warm to touch. NEUROLOGIC: Patient is awake, alert, and follows commands appropriately. Exam/Review of Systems Vital Signs Vitals Vital Signs Date Time Temp Pulse Resp B/P Pulse Ox O2 Delivery O2 Flow Rate FiO2 01/27/17 07:57 98.4 94 18 119/78 96 01/25/17 20:08 Room Air Intake and Output 01/26/17 01/26/17 01/27/17 15:00 23:00 07:00 Intake Total 890 ml 300 ml Output Total 405 ml Balance 890 ml -105 ml Results Result Diagram: 01/27/17 0545 01/27/17 0545 RALF MG M.D. Jan 27, 2017 09:20
--- NOTE | 2017-01-27 13:39 | CONS ---
Date/Time of Note Date/Time of Note DATE: 01/27/17 TIME: 13:34 Assessment/Plan Assessment/Plan Chief Complaint/Hosp Course ID PROGRESS NOTE SUBJECTIVE: Sitting up on edge of bed, getting ready to attempt ambulation in [place], reports ongoing flank + ABD pain, no fevers. MICROBIOLOGY: Blood culture growing gram-positive cocci in pairs and clusters. Urine culture negative. Influenza swab negative. Abdominal fluid culture + Strep INDWELLINGS: Intra-abdominal drainage catheters + PICC line ANTIMICROBIALS: Ceftriaxone 01/21; s/p Zosyn, s/p Vanco PHYSICAL EXAMINATION: GENERAL: Well-developed, well-nourished, middle-aged woman who is alert, in no distress. HEENT: Unremarkable NECK: Supple. CHEST: Chest rise is symmetrical. Breath sounds clear. HEART: S1, S2. ABDOMEN: Soft. Bowel sounds present. The patient has two intra-abdominal drainage catheters on the right. EXTREMITIES: Without cyanosis or edema. ID ASSESSMENT: 1. Resolving sepsis. 2. Streptococcal bacteremia 2 to #3 with repeat blood cultures negative. 3. Status post CT-guided liver abscess drainage, repeat CT revealed previously seen 9 cm hepatic abscess measuring about 7 cm.. 4. Anemia. 5. Status post acute kidney injury. ID PLAN: Continue Ceftriaxone 1gm IVPB daily via PICC line 14 days upon DC until seen by Dr. Wolfe OP Per notes: . Dispo per primary service; may consider US to further investigate flank/side discomfort/pain complaints . Problems: Consultation Date/Type/Reason Admit Date/Time Jan 17, 2017 at 00:20 Initial Consult Date 01/18/17 Type of Consultation: Infectious disease Referring Provider: DELMY VILLATORO [employer] Exam/Review of Systems Vital Signs Vitals Vital Signs Date Time Temp Pulse Resp B/P Pulse Ox O2 Delivery O2 Flow Rate FiO2 01/27/17 07:57 98.4 94 18 119/78 96 01/25/17 20:08 Room Air Intake and Output 01/26/17 01/26/17 01/27/17 14:59 22:59 06:59 Intake Total 890 ml 300 ml Output Total 405 ml Balance 890 ml -105 ml Results Result Diagram: 01/27/17 0545 01/27/17 0545 Results 24 hrs Laboratory Tests Test 01/27/17 05:45 White Blood Count 7.2 Red Blood Count 2.75 #L Hemoglobin 7.4 #L Hematocrit 23.2 #L Mean Corpuscular Volume 84.4 Mean Corpuscular Hemoglobin 26.9 L Mean Corpuscular Hemoglobin Concent 31.9 L Red Cell Distribution Width 15.7 H Platelet Count 637 #H Mean Platelet Volume 8.8 Neutrophils % 71.1 Lymphocytes % 19.1 Monocytes % 7.5 Eosinophils % 1.1 Basophils % 0.6 Nucleated Red Blood Cells % 0.0 Neutrophils # 5.2 Lymphocytes # 1.4 Monocytes # 0.5 Eosinophils # 0.1 Basophils # 0.0 Nucleated Red Blood Cells # 0.0 Sodium Level 143 Potassium Level 3.7 Chloride Level 108 Carbon Dioxide Level 21 Anion Gap 18 H Blood Urea Nitrogen 7 Creatinine 0.39 L Glucose Level 68 #L Calcium Level 7.1 L Phosphorus Level 3.3 Magnesium Level 1.6 L Total Bilirubin 0.1 L Direct Bilirubin 0.00 Indirect Bilirubin 0.1 Aspartate Amino Transf (AST/SGOT) 23 Alanine Aminotransferase (ALT/SGPT) 33 Alkaline Phosphatase 248 H Total Protein 5.9 #L Albumin 2.7 #L Globulin 3.20 Albumin/Globulin Ratio 0.84 Medications Medications Current Medications Ondansetron HCl (Zofran Inj) 4 mg Q6H PRN IV NAUSEA AND/OR VOMITING Last administered on 01/25/17 21:09; Admin Dose 4 MG; Start 01/17/17 at 00:30 Morphine Sulfate (morphine) 2 mg Q4H PRN IV SEVERE PAIN LEVEL 7-10 Last administered on 01/27/17 08:22; Admin Dose 2 MG; Start 01/17/17 at 00:30 IV Flush (NS 10 ml) 10 ml TID IV Last administered on 01/27/17 08:52; Admin Dose 10 ML; Start 01/18/17 at 13:00 Acetaminophen/ Hydrocodone Bitart ([place] (7.5-325)) 1 tab Q4H PRN PO PAIN LEVEL 8-10 Last administered on 01/26/17 15:55; Admin Dose 1 TAB; Start at 12:30 Pantoprazole (Protonix Tab) 40 mg DAILY@06 PO Last administered on 01/27/17 05: 39; Admin Dose 40 MG; Start 01/20/17 at 06:00 IV Flush (NS 10 ml) 10 ml PRN PRN IV FLUSH LINE; Start 01/20/17 at 07:00 IV Flush (NS 10 ml) 10 ml PRN PRN IV FLUSH LINE; Start 01/20/17 at 07:00 IV Flush (NS 10 ml) 20 ml PRN PRN IV FLUSH LINE; Start 01/20/17 at 07:00 Heparin Sodium (Porcine) (Heparin Flush (10 Units/ml)) 50 unit PRN PRN IV LUMENS NOT IN USE; Start 01/20/17 at 07:00 Acetaminophen (Tylenol Tab) 650 mg Q4H PRN PO MILD PAIN LEVEL 1-3; Start at 07:00 Fish Oil 2000 mg 2,000 mg BID PO Last administered on 01/27/17 08:52; Admin Dose 2,000 MG; Start 01/21/17 at 21:00 Ceftriaxone Sodium (Rocephin) 50 ml @ 100 mls/hr Q24H IVPB Last administered on 01/26/17 17:57; Admin Dose 100 MLS/HR; Start 01/21/17 at 17:30 Saccharomyces Boulardii (Florastor) 500 mg BID PO Last administered on 08:52; Admin Dose 500 MG; Start 01/23/17 at 21:00 MITESH METCALF NP Jan 27, 2017 13:39
--- NOTE | 2017-01-27 14:41 | CONS ---
Date/Time of Note Date/Time of Note DATE: 01/27/17 TIME: 14:40 Assessment/Plan Assessment/Plan Additional Assessment/Plan 1.Pericardial effusion-does not appear to have HD consequence by VS. Echo 01/25 trace effusion only - stable by exam, off tele now 2.Liver abscess s/p drainage - surgical team follows 3.Bacteremia - rx with anti-bx 4.anemia- H/H stable 5. abn ECG - no invasive rx planned Consultation Date/Type/Reason Admit Date/Time Jan 17, 2017 at 00:20 Initial Consult Date 01/24/17 Type of Consultation: Infectious disease Referring Provider: DELMY VILLATORO NP 24 HR Interval Summary Free Text/Dictation Stable by exam, off tele now ROS: No fever, no chills, no nausea, no vomiting, no diarrhea/constipation No recent weight changes No chest pain, no PND, no orthopnea No dizziness, blurred vision No thirst, no heat or cold intolerance Exam/Review of Systems Vital Signs Vitals Vital Signs Date Time Temp Pulse Resp B/P Pulse Ox O2 Delivery O2 Flow Rate FiO2 01/27/17 07:57 98.4 94 18 119/78 96 01/25/17 20:08 Room Air Intake and Output 01/26/17 01/26/17 01/27/17 15:00 23:00 07:00 Intake Total 890 ml 300 ml Output Total 405 ml Balance 890 ml -105 ml Exam General: WN/WD/NAD, AOx 3 HEENT: Unicetric/atraumatic/EOMI (follow commands) NECK: JVD elevated, no thyromegaly Lymph: no lymphadenopathy HEART: regular with no S3, II/ systolic murmur at apex LUNGS: Coarse sounds ABD: soft, NT, ND, +BS : Intact Neuro: non focal SKIN: chronic changes EXT: trace edema Results Result Diagram: 01/27/17 0545 01/27/17 0545 Results 24 hrs Laboratory Tests Test 01/27/17 05:45 White Blood Count 7.2 Red Blood Count 2.75 #L Hemoglobin 7.4 #L Hematocrit 23.2 #L Mean Corpuscular Volume 84.4 Mean Corpuscular Hemoglobin 26.9 L Mean Corpuscular Hemoglobin Concent 31.9 L Red Cell Distribution Width 15.7 H Platelet Count 637 #H Mean Platelet Volume 8.8 Neutrophils % 71.1 Lymphocytes % 19.1 Monocytes % 7.5 Eosinophils % 1.1 Basophils % 0.6 Nucleated Red Blood Cells % 0.0 Neutrophils # 5.2 Lymphocytes # 1.4 Monocytes # 0.5 Eosinophils # 0.1 Basophils # 0.0 Nucleated Red Blood Cells # 0.0 Sodium Level 143 Potassium Level 3.7 Chloride Level 108 Carbon Dioxide Level 21 Anion Gap 18 H Blood Urea Nitrogen 7 Creatinine 0.39 L Glucose Level 68 #L Calcium Level 7.1 L Phosphorus Level 3.3 Magnesium Level 1.6 L Total Bilirubin 0.1 L Direct Bilirubin 0.00 Indirect Bilirubin 0.1 Aspartate Amino Transf (AST/SGOT) 23 Alanine Aminotransferase (ALT/SGPT) 33 Alkaline Phosphatase 248 H Total Protein 5.9 #L Albumin 2.7 #L Globulin 3.20 Albumin/Globulin Ratio 0.84 Medications Medications Current Medications Ondansetron HCl (Zofran Inj) 4 mg Q6H PRN IV NAUSEA AND/OR VOMITING Last administered on 01/25/17 21:09; Admin Dose 4 MG; Start 01/17/17 at 00:30 Morphine Sulfate (morphine) 2 mg Q4H PRN IV SEVERE PAIN LEVEL 7-10 Last administered on 01/27/17 08:22; Admin Dose 2 MG; Start 01/17/17 at 00:30 IV Flush (NS 10 ml) 10 ml TID IV Last administered on 01/27/17 08:52; Admin Dose 10 ML; Start 01/18/17 at 13:00 Acetaminophen/ Hydrocodone Bitart ([place] (7.5-325)) 1 tab Q4H PRN PO PAIN LEVEL 8-10 Last administered on 01/26/17 15:55; Admin Dose 1 TAB; Start at 12:30 Pantoprazole (Protonix Tab) 40 mg DAILY@06 PO Last administered on 01/27/17 05: 39; Admin Dose 40 MG; Start 01/20/17 at 06:00 IV Flush (NS 10 ml) 10 ml PRN PRN IV FLUSH LINE; Start 01/20/17 at 07:00 IV Flush (NS 10 ml) 10 ml PRN PRN IV FLUSH LINE; Start 01/20/17 at 07:00 IV Flush (NS 10 ml) 20 ml PRN PRN IV FLUSH LINE; Start 01/20/17 at 07:00 Heparin Sodium (Porcine) (Heparin Flush (10 Units/ml)) 50 unit PRN PRN IV LUMENS NOT IN USE; Start 01/20/17 at 07:00 Acetaminophen (Tylenol Tab) 650 mg Q4H PRN PO MILD PAIN LEVEL 1-3; Start at 07:00 Fish Oil 2000 mg 2,000 mg BID PO Last administered on 01/27/17 08:52; Admin Dose 2,000 MG; Start 01/21/17 at 21:00 Ceftriaxone Sodium (Rocephin) 50 ml @ 100 mls/hr Q24H IVPB Last administered on 01/26/17 17:57; Admin Dose 100 MLS/HR; Start 01/21/17 at 17:30 Saccharomyces Boulardii (Florastor) 500 mg BID PO Last administered on 08:52; Admin Dose 500 MG; Start 01/23/17 at 21:00 Magnesium Chloride (Mag 64) 64 mg ONCE PO ; Start 01/27/17 at 16:00; Stop at 22:22 KIM RESTREPO MD Jan 27, 2017 14:41
[2017-01-27 15:11] LABS: HEMATOCRIT 29.7 % (37.0-47.0); HEMOGLOBIN 9.8 g/dl (12.0-16.0)
--- NOTE | 2017-01-27 15:25 | PN ---
Date/Time of Note Date/Time of Note DATE: 01/27/17 TIME: 15:23 Assessment/Plan VTE Prophylaxis VTE Prophylaxis Intervention: ambulation, SCD's Lines/Catheters IV Catheter Type (from Nrs): PICC Line Central line still needed: Yes Urinary Cath still in place: No Assessment/Plan Chief Complaint/Hosp Course 1. Sepsis secondary to underlying liver abscess along with gram-positive bacteremia. Status post septic shock. Continue antibiotics as per Infectious Disease. 2. Acute kidney injury. Resolved. Being followed by Nephrology. 3. Hepatic abscess. Status post percutaneous drainage. The patient is being followed by hepatobiliary surgery. 4. Transaminitis without hyperbilirubinemia. Improving. Most probably secondary to underlying liver abscess. 5. Prediabetes. Hemoglobin A1c 6.3. We will monitor random blood glucose closely. If random glucose levels are high, we will start the patient on therapy. 6. Dyslipidemia with high triglycerides and low HDL. Continue fish oil. 7. Mild to moderate pericardial effusion on a CT scan. There was no pericardial effusion on the 2D echocardiogram that was done on 01/17/2017. Cardiology evaluation ongoing. Repeat 2D echocardiogram showing trivial pericardial effusion. 8. Fluid, electrolytes, and nutrition. Regular diet as tolerated. 9. Deep venous thrombosis prophylaxis. Bilateral sequential compression devices. 10. Gastrointestinal prophylaxis. Proton pump inhibitors. PLAN: Continue antibiotics as per infectious diseases. Repeat H&H showing no evidence of anemia. Continues to have right upper quadrant pain. Await home health to be set up before discharge. Case discussed with Dr. King. Problems: Subjective 24 Hr Interval Summary Free Text/Dictation Last pain medication was given early in the morning. Exam/Review of Systems Vital Signs Vitals Vital Signs Date Time Temp Pulse Resp B/P Pulse Ox O2 Delivery O2 Flow Rate FiO2 01/27/17 07:57 98.4 94 18 119/78 96 01/25/17 20:08 Room Air Intake and Output 01/26/17 01/26/17 01/27/17 15:00 23:00 07:00 Intake Total 890 ml 300 ml Output Total 405 ml Balance 890 ml -105 ml Exam GENERAL: This is a 41-year-old female lying in bed in no apparent distress. HEENT: Head normocephalic and atraumatic. Eyes: Anicteric sclerae. Conjunctivae clear. ENT: Nasal septum is midline. Oral mucosa is moist. NECK: Supple. No JVD noticed. RESPIRATORY: Bilaterally clear to auscultation. No adventitious breath sounds. No use of accessory muscles of respiration. CARDIAC: Regular rate and rhythm. S1 and S2 heard. ABDOMEN: Soft, scaphoid. Two drains are present on the right side of the abdomen. Bowel sounds are positive in all 4 quadrants. No tenderness around the drain area. GENITOURINARY: Deferred. EXTREMITIES: No cyanosis, no clubbing, no edema. Peripheral pulses are palpable. NEUROLOGIC: The patient is awake, alert, and oriented. Cranial nerves are grossly intact. Results Result Diagram: 01/27/17 1505 01/27/17 0545 Results 24 hrs Laboratory Tests Test 01/27/17 05:45 01/27/17 15:05 White Blood Count 7.2 Red Blood Count 2.75 #L Hemoglobin 7.4 #L 9.8 #L Hematocrit 23.2 #L 29.7 #L Mean Corpuscular Volume 84.4 Mean Corpuscular Hemoglobin 26.9 L Mean Corpuscular Hemoglobin Concent 31.9 L Red Cell Distribution Width 15.7 H Platelet Count 637 #H Mean Platelet Volume 8.8 Neutrophils % 71.1 Lymphocytes % 19.1 Monocytes % 7.5 Eosinophils % 1.1 Basophils % 0.6 Nucleated Red Blood Cells % 0.0 Neutrophils # 5.2 Lymphocytes # 1.4 Monocytes # 0.5 Eosinophils # 0.1 Basophils # 0.0 Nucleated Red Blood Cells # 0.0 Sodium Level 143 Potassium Level 3.7 Chloride Level 108 Carbon Dioxide Level 21 Anion Gap 18 H Blood Urea Nitrogen 7 Creatinine 0.39 L Glucose Level 68 #L Calcium Level 7.1 L Phosphorus Level 3.3 Magnesium Level 1.6 L Total Bilirubin 0.1 L Direct Bilirubin 0.00 Indirect Bilirubin 0.1 Aspartate Amino Transf (AST/SGOT) 23 Alanine Aminotransferase (ALT/SGPT) 33 Alkaline Phosphatase 248 H Total Protein 5.9 #L Albumin 2.7 #L Globulin 3.20 Albumin/Globulin Ratio 0.84 Medications Medications Current Medications Ondansetron HCl (Zofran Inj) 4 mg Q6H PRN IV NAUSEA AND/OR VOMITING Last administered on 01/25/17t 21:09; Admin Dose 4 MG; Start 01/17/17 at 00:30 Morphine Sulfate (morphine) 2 mg Q4H PRN IV SEVERE PAIN LEVEL 7-10 Last administered on 01/27/17 15:10; Admin Dose 2 MG; Start 01/17/17 at 00:30 IV Flush (NS 10 ml) 10 ml TID IV Last administered on 01/27/17 15:14; Admin Dose 10 ML; Start 01/18/17 at 13:00 Acetaminophen/ Hydrocodone Bitart ([place] (7.5-325)) 1 tab Q4H PRN PO PAIN LEVEL 8-10 Last administered on 01/26/17 15:55; Admin Dose 1 TAB; Start at 12:30 Pantoprazole (Protonix Tab) 40 mg DAILY@06 PO Last administered on 01/27/17 05: 39; Admin Dose 40 MG; Start 01/20/17 at 06:00 IV Flush (NS 10 ml) 10 ml PRN PRN IV FLUSH LINE; Start 01/20/17 at 07:00 IV Flush (NS 10 ml) 10 ml PRN PRN IV FLUSH LINE; Start 01/20/17 at 07:00 IV Flush (NS 10 ml) 20 ml PRN PRN IV FLUSH LINE; Start 01/20/17 at 07:00 Heparin Sodium (Porcine) (Heparin Flush (10 Units/ml)) 50 unit PRN PRN IV LUMENS NOT IN USE; Start 01/20/17 at 07:00 Acetaminophen (Tylenol Tab) 650 mg Q4H PRN PO MILD PAIN LEVEL 1-3; Start at 07:00 Fish Oil 2000 mg 2,000 mg BID PO Last administered on 01/27/17 08:52; Admin Dose 2,000 MG; Start 01/21/17 at 21:00 Ceftriaxone Sodium (Rocephin) 50 ml @ 100 mls/hr Q24H IVPB Last administered on 01/26/17 17:57; Admin Dose 100 MLS/HR; Start 01/21/17 at 17:30 Saccharomyces Boulardii (Florastor) 500 mg BID PO Last administered on 08:52; Admin Dose 500 MG; Start 01/23/17 at 21:00 Magnesium Chloride (Mag 64) 64 mg ONCE PO ; Start 01/27/17 at 16:00; Stop at 22:22 DELMY VILLATORO NP Jan 27, 2017 15:25
[2017-01-27] MEDS ORDERED: MAGNESIUM CHLORIDE (SR) 64 MG TAB PO SCH (16:00)
[2017-01-27] MEDS: CEFTRIAXONE 1 GM/50 ML (PMX) 50 ML IVPB SCH (17:05)
[2017-01-27 19:46] VITALS: BP 130/79; RESP 19
[2017-01-27] MEDS: HYDROCODONE/APAP (7.5/325) TAB PO PRN (22:03)
[2017-01-28] MEDS: HYDROCODONE/APAP (7.5/325) TAB PO PRN ×2 (04:48→14:24)
[2017-01-28] MEDS: PANTOPRAZOLE (EC) 40 MG TAB PO SCH (05:15)
[2017-01-28 06:00] LABS: BASOPHIL # 0.1 10^3/ul (0.0-0.1); BASOPHILS % 1.5 % (0.0-2.0); EOSINOPHILS # 0.1 10^3/ul (0.0-0.5); EOSINOPHILS % 1.5 % (0.0-7.0); HEMATOCRIT 29.3 % (37.0-47.0); HEMOGLOBIN 9.4 g/dl (12.0-16.0); LYMPHOCYTES # 2.2 10^3/ul (0.8-2.9); MEAN CORPUSCULAR HGB CONC 32.1 g/dl (32.0-37.0); MEAN CORPUSCULAR VOLUME 84.2 fl (82.0-101.0); MEAN PLATELET VOLUME 8.8 fl (7.4-10.4); MONOCYTE # 0.6 10^3/ul (0.3-0.9); NEUTROPHIL # 3.7 10^3/ul (1.6-7.5); NEUTROPHILS % 54.6 % (39.0-77.0); PLATELET COUNT 764 10^3/UL (140-415); RED BLOOD COUNT 3.48 10^6/ul (4.20-5.40); RED CELL DISTRIBUTION WIDTH 15.6 % (11.5-14.5); WHITE BLOOD COUNT 6.8 10^3/ul (4.8-10.8)
[2017-01-28 06:22] LABS: MAGNESIUM 1.9 mg/dl (1.7-2.5); PHOSPHORUS 4.3 mg/dl (2.5-4.9)
[2017-01-28 06:28] LABS: CALCIUM 9.1 mg/dl (8.4-10.2); CREATININE 0.52 mg/dl (0.44-1.00); POTASSIUM 4.1 mmol/L (3.5-5.1)
[2017-01-28 06:53] LABS: ADD SCAN DIFF NO
[2017-01-28 07:30] VITALS: BP 107/59; PULSE 77; RESP 16
[2017-01-28] MEDS: FISH OIL 1,000 MG CAP PO SCH (08:31)
[2017-01-28] MEDS: SACCHAROMYCES BOULARDII 250 MG CAP PO SCH (08:31)
--- NOTE | 2017-01-28 11:48 | PN ---
Date/Time of Note Date/Time of Note DATE: 01/28/17 TIME: 11:45 Assessment/Plan VTE Prophylaxis VTE Prophylaxis Intervention: ambulation, SCD's Lines/Catheters IV Catheter Type (from Nrs): PICC Line Central line still needed: Yes Urinary Cath still in place: No Assessment/Plan Chief Complaint/Hosp Course 1. Sepsis secondary to underlying liver abscess along with gram-positive bacteremia. Status post septic shock. Continue antibiotics as per Infectious Disease. 2. Acute kidney injury. Resolved. Being followed by Nephrology. 3. Hepatic abscess. Status post percutaneous drainage. The patient is being followed by hepatobiliary surgery. 4. Transaminitis without hyperbilirubinemia. Improving. Most probably secondary to underlying liver abscess. 5. Prediabetes. Hemoglobin A1c 6.3. We will monitor random blood glucose closely. If random glucose levels are high, we will start the patient on therapy. 6. Dyslipidemia with high triglycerides and low HDL. Continue fish oil. 7. Mild to moderate pericardial effusion on a CT scan. There was no pericardial effusion on the 2D echocardiogram that was done on 01/17/2017. Cardiology evaluation ongoing. Repeat 2D echocardiogram showing trivial pericardial effusion. 8. Fluid, electrolytes, and nutrition. Regular diet as tolerated. 9. Deep venous thrombosis prophylaxis. Bilateral sequential compression devices. 10. Gastrointestinal prophylaxis. Proton pump inhibitors. PLAN: Continue antibiotics as per infectious diseases. Await home health to be set up before discharge. Case discussed with Dr. King. Problems: Subjective 24 Hr Interval Summary Free Text/Dictation Remains afebrile. Denies any pain. Exam/Review of Systems Vital Signs Vitals Vital Signs Date Time Temp Pulse Resp B/P Pulse Ox O2 Delivery O2 Flow Rate FiO2 01/28/17 07:30 98.1 77 16 107/59 97 Room Air Intake and Output 01/27/17 01/27/17 01/28/17 15:00 23:00 07:00 Intake Total 650 ml 300 ml Output Total 50 ml 5 ml Balance 600 ml 295 ml Exam GENERAL: This is a 41-year-old female lying in bed in no apparent distress. HEENT: Head normocephalic and atraumatic. Eyes: Anicteric sclerae. Conjunctivae clear. ENT: Nasal septum is midline. Oral mucosa is moist. NECK: Supple. No JVD noticed. RESPIRATORY: Bilaterally clear to auscultation. No adventitious breath sounds. No use of accessory muscles of respiration. CARDIAC: Regular rate and rhythm. S1 and S2 heard. ABDOMEN: Soft, scaphoid. Two drains are present on the right side of the abdomen. Bowel sounds are positive in all 4 quadrants. No tenderness around the drain area. GENITOURINARY: Deferred. EXTREMITIES: No cyanosis, no clubbing, no edema. Peripheral pulses are palpable. NEUROLOGIC: The patient is awake, alert, and oriented. Cranial nerves are grossly intact. Results Result Diagram: 01/28/17 0515 01/28/17 0515 Results 24 hrs Laboratory Tests Test 01/27/17 15:05 01/28/17 05:15 Hemoglobin 9.8 #L 9.4 L Hematocrit 29.7 #L 29.3 L White Blood Count 6.8 Red Blood Count 3.48 #L Mean Corpuscular Volume 84.2 Mean Corpuscular Hemoglobin 27.0 L Mean Corpuscular Hemoglobin Concent 32.1 Red Cell Distribution Width 15.6 H Platelet Count 764 H Mean Platelet Volume 8.8 Neutrophils % 54.6 Lymphocytes % 33.0 Monocytes % 9.0 Eosinophils % 1.5 Basophils % 1.5 Nucleated Red Blood Cells % 0.0 Neutrophils # 3.7 Lymphocytes # 2.2 Monocytes # 0.6 Eosinophils # 0.1 Basophils # 0.1 Nucleated Red Blood Cells # 0.0 Sodium Level 138 Potassium Level 4.1 Chloride Level 99 Carbon Dioxide Level 26 Anion Gap 17 H Blood Urea Nitrogen 10 Creatinine 0.52 Glucose Level 91 Calcium Level 9.1 Phosphorus Level 4.3 Magnesium Level 1.9 Medications Medications Current Medications Ondansetron HCl (Zofran Inj) 4 mg Q6H PRN IV NAUSEA AND/OR VOMITING Last administered on 01/25/17 21:09; Admin Dose 4 MG; Start 01/17/17 at 00:30 Morphine Sulfate (morphine) 2 mg Q4H PRN IV SEVERE PAIN LEVEL 7-10 Last administered on 01/27/17 15:10; Admin Dose 2 MG; Start 01/17/17 at 00:30 IV Flush (NS 10 ml) 10 ml TID IV Last administered on 01/28/17 08:31; Admin Dose 10 ML; Start 01/18/17 at 13:00 Acetaminophen/ Hydrocodone Bitart ([place] (7.5-325)) 1 tab Q4H PRN PO PAIN LEVEL 8-10 Last administered on 01/28/17 04:48; Admin Dose 1 TAB; Start at 12:30 Pantoprazole (Protonix Tab) 40 mg DAILY@06 PO Last administered on 01/28/17 05: 15; Admin Dose 40 MG; Start 01/20/17 at 06:00 IV Flush (NS 10 ml) 10 ml PRN PRN IV FLUSH LINE; Start 01/20/17 at 07:00 IV Flush (NS 10 ml) 10 ml PRN PRN IV FLUSH LINE; Start 01/20/17 at 07:00 IV Flush (NS 10 ml) 20 ml PRN PRN IV FLUSH LINE; Start 01/20/17 at 07:00 Heparin Sodium (Porcine) (Heparin Flush (10 Units/ml)) 50 unit PRN PRN IV LUMENS NOT IN USE; Start 01/20/17 at 07:00 Acetaminophen (Tylenol Tab) 650 mg Q4H PRN PO MILD PAIN LEVEL 1-3; Start at 07:00 Fish Oil 2000 mg 2,000 mg BID PO Last administered on 01/28/17 08:31; Admin Dose 2,000 MG; Start 01/21/17 at 21:00 Ceftriaxone Sodium (Rocephin) 50 ml @ 100 mls/hr Q24H IVPB Last administered on 01/27/17 17:05; Admin Dose 100 MLS/HR; Start 01/21/17 at 17:30 Saccharomyces Boulardii (Florastor) 500 mg BID PO Last administered on 08:31; Admin Dose 500 MG; Start 01/23/17 at 21:00 DELMY VILLATORO NP Jan 28, 2017 11:48
--- NOTE | 2017-01-28 12:26 | PDOCDIS ---
Discharge Instructions DIAGNOSIS Discharge Diagnosis Liver abscess. CONDITION Patient Condition: Stable HOME CARE INSTRUCTIONS: Diet Instructions: Low Fat /Cholesterol FOLLOW UP/APPOINTMENTS Follow-up Plan Lucien Lindsay MD [facility] Office Address [address] [place] [id number] Office OTHER ORDERS: Other Orders: 1. Take medications as per prescription. Complete the course of IV antibiotics. 2. Low-cholesterol diet. 3. Empty the drains as instructed. 4. Follow-up with Dr. Lindsay in 2 weeks. Please call for appointment. 5. Please go to the nearest emergency room if you continues to have significant abdominal pain despite pain medications, persistent nausea and vomiting, persistent fevers, or any other unusual signs/symptoms. DELMY VILLATORO NP Jan 28, 2017 12:25
[2017-01-28] MEDS ORDERED: TRAM-40 PO (12:27)
[2017-01-28] MEDS ORDERED: OMEG1CAP55 PO (12:27)
--- NOTE | 2017-01-28 12:30 | DS ---
Date/Time of Note Date/Time of Note DATE: 01/28/17 TIME: 12:30 Discharge Summary Admission/Discharge Info Admit Date/Time Jan 17, 2017 at 00:20 Discharge Date/Time Discharge Diagnosis 1. Liver abscess. Status post CT-guided drainage. 2. Status post sepsis secondary to underlying liver abscess along with gram- positive bacteremia. 3. Status post septic shock. 4. Acute kidney injury. Resolved. 5. Transaminitis without hyperbilirubinemia. . 6. Prediabetes. Hemoglobin A1c 6.3. 7. Dyslipidemia with high triglycerides and low HDL. 8. Normocytic, hypochromic anemia. 9. Protein calorie malnutrition. Moderate. Patient Condition: Stable Consults 1. Lucien Lindsay MD, Hepatobiliary Surgery. 2. Abrahan Herrmann MD, Infectious Diseases. 3. John Paul Perez MD, Pulmonology. 4. Mark Terrazas MD, Cardiology. 5. Tian Moore MD, Cardiology. 6. Romeo Rod DO, Nephrology. Procedures CT Scan of the Abdomen and Pelvis IMPRESSION: 1. Increased right pleural effusion with new atelectasis versus airspace disease at the right lung base. 2. Mild to moderate 10 mm pericardial effusion. 3. The previously seen 9 cm hepatic abscess is decreased in size, now measuring about 7 cm. 4. The smaller inferior previously seen 7 mm hepatic abscess is decreased in size, now measuring about 4 mm. 5. 2 the new percutaneous pigtail catheter drains are coiled within the abscesses. CT-Guided Liver Abscess Drainage IMPRESSION: 1. Successful CT guided liver abscess drainages. 2D Echocardiogram Conclusions 1. Normal left ventricular systolic function. The left ventricular ejection fraction is visually estimated at 60 %. 2. Trivial effusion. Hx of Present Illness The patient is a 41-year-old female with no significant medical history. The patient presents with 1 week of worsening weakness, fevers, and chills. The patient presented to the ED 3 days prior to this admission, where she was diagnosed with a viral syndrome. Blood cultures were taken. The patient was told to follow up in the ER in a few days if she continued to feel poorly. The patient indeed did follow up, and patient's blood cultures also showed alpha- hemolytic strep. The patient denied any cellulitis throughout her body. She denied any dysuria or urinary frequency. She denied any productive cough. The patient did state that she did have some mild abdominal pain. She did have some nausea with occasional emesis. The patient denied any significant diarrhea. She said on occasion she had some loose stool but nothing significant. The patient has never had these symptoms before in the past, and she has been otherwise healthy. In the ED, the patient's lactic acid was noted to be elevated at 8.1. She was tachycardic, and her BP was on lower side. The patient denied any chest pain, denied any headaches, and her main issue was her weakness with nausea, vomiting and fevers and chills. Hospital Course The patient was noticed to be in septic shock. The patient had to be moved to intensive care unit and to be started on pressors to maintain the blood pressure. Patient was found to have gram-positive bacteremia. The patient was noticed to have a 2 probably large hepatic abscesses in the CT scan of the abdomen and pelvis. Hence hepatobiliary surgery was involved in the case. The patient underwent a CT-guided drainage of the hepatic abscess by interventional radiology on 01/17/2017. The fluid cultures showed alpha hemolytic Streptococcus species. Infectious diseases was on the patient's case for antibiotic management. The patient was gradually weaned off of pressors and the patient was moved out of the intensive care unit to the floor. The patient had a underlying acute kidney injury secondary to hypotension. Hence nephrology was involved the case. The patient's acute kidney injury was resolved throughout the hospital course. The patient was also noticed a prediabetes with hemoglobin A1c of 6.3. The patient's blood glucose remained stable. The patient was also noticed a dyslipidemia with high triglycerides and low HDL. The patient was maintained on fish oil for the same. The patient had underlying a transaminitis probably secondary to underlying liver abscess. The patient underwent a repeat CT scan of the abdomen and pelvis on 01/23/2017 that showed decrease in the size of the hepatic abscesses. The CT scan also revealed increased right pleural effusion and new atelectasis versus airspace disease at the right lung base with a mild to moderate pericardial effusion. Consequently, cardiology consult was obtained. The patient had a 2D echocardiogram done on 01/17/2017 that was negative for any pericardial effusion. The patient's repeat 2D echocardiogram showed a trivial pericardial effusion. The patient had no evidence of any tamponade or any other hemodynamic compromise. Hence it was concluded that the radiologist has over- read the pericardial effusion on the CT scan done on 01/23/2017. The patient also had some diarrhea during the hospital course. The patient stool for C. difficile was negative. The patient was started on probiotics with improvement the patient's symptoms. The patient continues to have right 2 hepatic abscesses that are still draining. Hence the decision was made to keep the drains in place to be followed up as outpatient. A clinical decision was made to continue the patient on IV antibiotics. Home health was arranged. The patient will be continued on IV Rocephin for 2 week. The last date 02/09/2017. The patient had a prolonged and complicated hospital course because of the complexity of the patient's clinical condition. The patient was cleared by consultants to be discharged home. Discharge Instructions 1. Take medications as per prescription. Complete the course of IV antibiotics. 2. Low-cholesterol diet. 3. Empty the drains as instructed. 4. Follow-up with Dr. Lindsay in 2 weeks. Please call for appointment. 5. Please go to the nearest emergency room if you continues to have significant abdominal pain despite pain medications, persistent nausea and vomiting, persistent fevers, or any other unusual signs/symptoms. The patient verbalized understanding of her discharge instructions. Case discussed with Dr. King. Home Meds Active Scripts Tramadol Hcl* (Ultram*) 50 Mg Tablet, 50 MG PO Q6H Y for PAIN, #20 TAB Prov:DELMY VILLATORO NP 01/28/17 [place]-3/Dha/Epa/Fish Oil (FISH OIL EC 1,000 MG SOFTGEL) 1 Each Capsule.dr, 2000 MG PO BID for 30 Days Prov:DELMY VILLATORO NP 01/28/17 Discontinued Scripts Acetaminophen* (Tylenol*) 325 Mg Tablet, 2 TAB PO Q6 Y for PAIN AND OR ELEVATED TEMP, #20 TAB Prov:ROSA CASANOVA 01/13/17 Follow-up Plan Follow-up with Dr. Lindsay in 2 weeks. Primary Care Provider Care Physician No Primary Time spent on discharge: > 30 minutes Pending Labs Laboratory Tests Test 01/27/17 15:05 01/28/17 05:15 Hemoglobin 9.8g/dl (12.0-16.0) 9.4g/dl (12.0-16.0) Hematocrit 29.7% (37.0-47.0) 29.3% (37.0-47.0) White Blood Count 6.810^3/ul (4.8-10.8) Red Blood Count 3.4810^6/ul (4.20-5.40) Mean Corpuscular Volume 84.2fl (82.0-101.0) Mean Corpuscular Hemoglobin 27.0pg (29.0-33.0) Mean Corpuscular Hemoglobin Concent 32.1g/dl (32.0-37.0) Red Cell Distribution Width 15.6% (11.5-14.5) Platelet Count 80178^3/UL (140-415) Mean Platelet Volume 8.8fl (7.4-10.4) Neutrophils % 54.6% (39.0-77.0) Lymphocytes % 33.0% (15.0-51.0) Monocytes % 9.0% (0.0-11.0) Eosinophils % 1.5% (0.0-7.0) Basophils % 1.5% (0.0-2.0) Nucleated Red Blood Cells % 0.0/100WBC (0.0-0.0) Neutrophils # 3.710^3/ul (1.6-7.5) Lymphocytes # 2.210^3/ul (0.8-2.9) Monocytes # 0.610^3/ul (0.3-0.9) Eosinophils # 0.110^3/ul (0.0-0.5) Basophils # 0.110^3/ul (0.0-0.1) Nucleated Red Blood Cells # 0.010^3/ul (0.0-0.0) Sodium Level 138mmol/L (135-144) Potassium Level 4.1mmol/L (3.5-5.1) Chloride Level 99mmol/L (97-110) Carbon Dioxide Level 26mmol/L (21-31) Anion Gap 17 (8-16) Blood Urea Nitrogen 10mg/dl (7-20) Creatinine 0.52mg/dl (0.44-1.00) Glucose Level 91mg/dl (70-220) Calcium Level 9.1mg/dl (8.4-10.2) Phosphorus Level 4.3mg/dl (2.5-4.9) Magnesium Level 1.9mg/dl (1.7-2.5) DELMY VILLATORO NP Jan 28, 2017 12:30 DELMY VILLATORO NP Jan 28, 2017 12:30
--- NOTE | 2017-01-28 13:46 | CONS ---
Date/Time of Note Date/Time of Note DATE: 01/28/17 TIME: 13:45 Assessment/Plan Assessment/Plan Additional Assessment/Plan 1.Pericardial effusion-does not appear to have HD consequence by VS. Echo 01/25 trace effusion only - stable by exam, off tele now - STABLE 2.Liver abscess s/p drainage - surgical team follows - Rx with anti-bx 3.Bacteremia - rx with anti-bx - no fever 4.anemia- H/H stable 5. abn ECG - no invasive rx planned Consultation Date/Type/Reason Admit Date/Time Jan 17, 2017 at 00:20 Initial Consult Date 01/24/17 Type of Consultation: Infectious disease Referring Provider: DELMY VILLATORO [employer]ER 24 HR Interval Summary Free Text/Dictation NO chest pain - stable - off tele ROS: No fever, no chills, no nausea, no vomiting, no diarrhea/constipation No recent weight changes No chest pain, no PND, no orthopnea No dizziness, blurred vision No thirst, no heat or cold intolerance Exam/Review of Systems Vital Signs Vitals Vital Signs Date Time Temp Pulse Resp B/P Pulse Ox O2 Delivery O2 Flow Rate FiO2 01/28/17 07:30 98.1 77 16 107/59 97 Room Air Intake and Output 01/27/17 01/27/17 01/28/17 15:00 23:00 07:00 Intake Total 650 ml 300 ml Output Total 50 ml 5 ml Balance 600 ml 295 ml Exam General: WN/WD/NAD, AOx 3 HEENT: Unicetric/atraumatic/EOMI (follow commands) NECK: JVD elevated, no thyromegaly Lymph: no lymphadenopathy HEART: regular with no S3, II/ systolic murmur at apex LUNGS: Coarse sounds ABD: soft, NT, ND, +BS : Intact Neuro: non focal SKIN: chronic changes EXT: trace edema Results Result Diagram: 01/28/17 0515 01/28/17 0515 Results 24 hrs Laboratory Tests Test 01/27/17 15:05 01/28/17 05:15 Hemoglobin 9.8 #L 9.4 L Hematocrit 29.7 #L 29.3 L White Blood Count 6.8 Red Blood Count 3.48 #L Mean Corpuscular Volume 84.2 Mean Corpuscular Hemoglobin 27.0 L Mean Corpuscular Hemoglobin Concent 32.1 Red Cell Distribution Width 15.6 H Platelet Count 764 H Mean Platelet Volume 8.8 Neutrophils % 54.6 Lymphocytes % 33.0 Monocytes % 9.0 Eosinophils % 1.5 Basophils % 1.5 Nucleated Red Blood Cells % 0.0 Neutrophils # 3.7 Lymphocytes # 2.2 Monocytes # 0.6 Eosinophils # 0.1 Basophils # 0.1 Nucleated Red Blood Cells # 0.0 Sodium Level 138 Potassium Level 4.1 Chloride Level 99 Carbon Dioxide Level 26 Anion Gap 17 H Blood Urea Nitrogen 10 Creatinine 0.52 Glucose Level 91 Calcium Level 9.1 Phosphorus Level 4.3 Magnesium Level 1.9 Medications Medications Current Medications Ondansetron HCl (Zofran Inj) 4 mg Q6H PRN IV NAUSEA AND/OR VOMITING Last administered on 01/25/17 21:09; Admin Dose 4 MG; Start 01/17/17 at 00:30 Morphine Sulfate (morphine) 2 mg Q4H PRN IV SEVERE PAIN LEVEL 7-10 Last administered on 01/27/17 15:10; Admin Dose 2 MG; Start 01/17/17 at 00:30 IV Flush (NS 10 ml) 10 ml TID IV Last administered on 01/28/17 12:56; Admin Dose 10 ML; Start 01/18/17 at 13:00 Acetaminophen/ Hydrocodone Bitart ([place] (7.5-325)) 1 tab Q4H PRN PO PAIN LEVEL 8-10 Last administered on 01/28/17 04:48; Admin Dose 1 TAB; Start at 12:30 Pantoprazole (Protonix Tab) 40 mg DAILY@06 PO Last administered on 01/28/17 05: 15; Admin Dose 40 MG; Start 01/20/17 at 06:00 IV Flush (NS 10 ml) 10 ml PRN PRN IV FLUSH LINE; Start 01/20/17 at 07:00 IV Flush (NS 10 ml) 10 ml PRN PRN IV FLUSH LINE; Start 01/20/17 at 07:00 IV Flush (NS 10 ml) 20 ml PRN PRN IV FLUSH LINE; Start 01/20/17 at 07:00 Heparin Sodium (Porcine) (Heparin Flush (10 Units/ml)) 50 unit PRN PRN IV LUMENS NOT IN USE; Start 01/20/17 at 07:00 Acetaminophen (Tylenol Tab) 650 mg Q4H PRN PO MILD PAIN LEVEL 1-3; Start at 07:00 Fish Oil 2000 mg 2,000 mg BID PO Last administered on 01/28/17 08:31; Admin Dose 2,000 MG; Start 01/21/17 at 21:00 Ceftriaxone Sodium (Rocephin) 50 ml @ 100 mls/hr Q24H IVPB Last administered on 01/27/17 17:05; Admin Dose 100 MLS/HR; Start 01/21/17 at 17:30 Saccharomyces Boulardii (Florastor) 500 mg BID PO Last administered on 08:31; Admin Dose 500 MG; Start 01/23/17 at 21:00 KIM RESTREPO MD Jan 28, 2017 13:46
--- NOTE | 2017-01-28 14:06 | CONS ---
Date/Time of Note Date/Time of Note DATE: 01/28/17 TIME: 14:03 Assessment/Plan Assessment/Plan Chief Complaint/Hosp Course Assessment/Plan Assessment/Plan Chief Complaint/Hosp Course ID PROGRESS NOTE SUBJECTIVE: Sitting in the chair. Denies pain. No fevers. MICROBIOLOGY: Blood culture growing gram-positive cocci in pairs and clusters. Urine culture negative. Influenza swab negative. Abdominal fluid culture + Strep INDWELLINGS: Intra-abdominal drainage catheters + PICC line ANTIMICROBIALS: Ceftriaxone 01/21; s/p Zosyn, s/p Vanco PHYSICAL EXAMINATION: GENERAL: Well-developed, well-nourished, middle-aged woman who is alert, in no distress. HEENT: Unremarkable NECK: Supple. CHEST: Chest rise is symmetrical. Breath sounds clear. HEART: S1, S2. ABDOMEN: Soft. Bowel sounds present. The patient has two intra-abdominal drainage catheters on the right. EXTREMITIES: Without cyanosis or edema. ID ASSESSMENT: 1. Resolving sepsis. 2. Streptococcal bacteremia 2 to #3 with repeat blood cultures negative. 3. Status post CT-guided liver abscess drainage, repeat CT revealed previously seen 9 cm hepatic abscess measuring about 7 cm.. 4. Anemia. 5. Status post acute kidney injury. ID PLAN: Continue Ceftriaxone 1gm IVPB daily via PICC line 14 days upon DC until seen by Dr. Wolfe OP Per notes: . Dispo per primary service; may consider US to further investigate flank/side discomfort/pain complaints Pain Management. Monitor Labs. Problems: Consultation Date/Type/Reason Admit Date/Time Jan 17, 2017 at 00:20 Initial Consult Date 01/24/17 Type of Consultation: Infectious disease Referring Provider: DELMY VILLATORO CARTOGRAPHY/MAPPING TECHNICIAN Exam/Review of Systems Vital Signs Vitals Vital Signs Date Time Temp Pulse Resp B/P Pulse Ox O2 Delivery O2 Flow Rate FiO2 01/28/17 07:30 98.1 77 16 107/59 97 Room Air Intake and Output 01/27/17 01/27/17 01/28/17 15:00 23:00 07:00 Intake Total 650 ml 300 ml Output Total 50 ml 5 ml Balance 600 ml 295 ml Results Result Diagram: 01/28/17 0515 01/28/17 0515 Results 24 hrs Laboratory Tests Test 01/27/17 15:05 01/28/17 05:15 Hemoglobin 9.8 #L 9.4 L Hematocrit 29.7 #L 29.3 L White Blood Count 6.8 Red Blood Count 3.48 #L Mean Corpuscular Volume 84.2 Mean Corpuscular Hemoglobin 27.0 L Mean Corpuscular Hemoglobin Concent 32.1 Red Cell Distribution Width 15.6 H Platelet Count 764 H Mean Platelet Volume 8.8 Neutrophils % 54.6 Lymphocytes % 33.0 Monocytes % 9.0 Eosinophils % 1.5 Basophils % 1.5 Nucleated Red Blood Cells % 0.0 Neutrophils # 3.7 Lymphocytes # 2.2 Monocytes # 0.6 Eosinophils # 0.1 Basophils # 0.1 Nucleated Red Blood Cells # 0.0 Sodium Level 138 Potassium Level 4.1 Chloride Level 99 Carbon Dioxide Level 26 Anion Gap 17 H Blood Urea Nitrogen 10 Creatinine 0.52 Glucose Level 91 Calcium Level 9.1 Phosphorus Level 4.3 Magnesium Level 1.9 Medications Medications Current Medications Ondansetron HCl (Zofran Inj) 4 mg Q6H PRN IV NAUSEA AND/OR VOMITING Last administered on 01/25/17 21:09; Admin Dose 4 MG; Start 01/17/17 at 00:30 Morphine Sulfate (morphine) 2 mg Q4H PRN IV SEVERE PAIN LEVEL 7-10 Last administered on 01/27/17 15:10; Admin Dose 2 MG; Start 01/17/17 at 00:30 IV Flush (NS 10 ml) 10 ml TID IV Last administered on 01/28/17 12:56; Admin Dose 10 ML; Start 01/18/17 at 13:00 Acetaminophen/ Hydrocodone Bitart ([place] (7.5-325)) 1 tab Q4H PRN PO PAIN LEVEL 8-10 Last administered on 01/28/17 04:48; Admin Dose 1 TAB; Start at 12:30 Pantoprazole (Protonix Tab) 40 mg DAILY@06 PO Last administered on 01/28/17 05: 15; Admin Dose 40 MG; Start 01/20/17 at 06:00 IV Flush (NS 10 ml) 10 ml PRN PRN IV FLUSH LINE; Start 01/20/17 at 07:00 IV Flush (NS 10 ml) 10 ml PRN PRN IV FLUSH LINE; Start 01/20/17 at 07:00 IV Flush (NS 10 ml) 20 ml PRN PRN IV FLUSH LINE; Start 01/20/17 at 07:00 Heparin Sodium (Porcine) (Heparin Flush (10 Units/ml)) 50 unit PRN PRN IV LUMENS NOT IN USE; Start 01/20/17 at 07:00 Acetaminophen (Tylenol Tab) 650 mg Q4H PRN PO MILD PAIN LEVEL 1-3; Start at 07:00 Fish Oil 2000 mg 2,000 mg BID PO Last administered on 01/28/17 08:31; Admin Dose 2,000 MG; Start 01/21/17 at 21:00 Ceftriaxone Sodium (Rocephin) 50 ml @ 100 mls/hr Q24H IVPB Last administered on 01/27/17 17:05; Admin Dose 100 MLS/HR; Start 01/21/17 at 17:30 Saccharomyces Boulardii (Florastor) 500 mg BID PO Last administered on 08:31; Admin Dose 500 MG; Start 01/23/17 at 21:00 SHEA RAMIREZ NP Jan 28, 2017 14:06
--- NOTE | 2017-01-28 15:06 | PN ---
Date/Time of Note Date/Time of Note DATE: 01/28/17 TIME: 15:02 Assessment/Plan Lines/Catheters IV Catheter Type (from Nrsg): PICC Line Esquivel in Place (from Nrsg): No Assessment/Plan Assessment/Plan [facility] Progress Note Date of Service: 01/28/17 Today's Impression & Plan: Overall stable and improved. No indication for acute surgical intervention. Liver abscesses appear well controlled with the drains and no bile communication seen. Minimal output and ss. Still has large enough abnormalities around both drains that they should stay for now. Pain in the flank area is reportedly completely resolved. Do not see a surgical issue at this time. Dispo per primary service. With above assessment, I've recommended the following for today: 1. Dispo per primary service 2. Drain care education with flushing each drain with 10 cc NS per day 3. May need home health nurse visit set up 4. F/u with me in the office in 1-2 weeks Thank you again for your great care of this very pleasant patient and wonderful family. If there are any questions, please feel free to call me at [phone]. TOTAL VISIT TIME: 20 minutes of which more than half was spent in [id number] discussion with the patient, possibly including family, as well as coordination of care between multiple physicians and providers. Disclaimer: Inadvertent spelling or grammatical errors are likely due to EHR/ dictation software use and do not reflect on the overall quality of patient care. Updated Clinical Summary: The patient is a very pleasant 41-year-old lady with comorbidities including BMI 25.4 who presented through the emergency department at [facility] on 01/16/2017 with multiple hepatic abscesses, status post percutaneous drainage procedure 01/17/17 at [facility]. COMORBIDITIES: 1. BMI 25.4. 2. Possible prediabetes given the elevated hemoglobin A1c 3. Sepsis with two liver abscesses in the right lobe of the liver, status post percutaneous drainage procedure 01/17/17 at [facility]. Subjective: No major events or complaints; no abd pain and under control with medications; no further flank discomfort; no n/v/d; no sob or cp; + bowel activity; + activity Objective: Vitals: See below Exam: GENERAL: On exam, the patient was waking with her sister in the hallway and appeared to be comfortable and in no acute distress. ABDOMEN: Soft, nontender and nondistended. Perc hepatic drains both ss without obvious bile and minimal outputs. There are no peritoneal signs or guarding. SKIN: Skin appears to be pink and feels warm to touch. NEUROLOGIC: Patient is awake, alert, and follows commands appropriately. Exam/Review of Systems Vital Signs Vitals Vital Signs Date Time Temp Pulse Resp B/P Pulse Ox O2 Delivery O2 Flow Rate FiO2 01/28/17 07:30 98.1 77 16 107/59 97 Room Air Intake and Output 01/27/17 01/27/17 01/28/17 15:00 23:00 07:00 Intake Total 650 ml 300 ml Output Total 50 ml 5 ml Balance 600 ml 295 ml Results Result Diagram: 01/28/17 0515 01/28/17 0515 RALF MG M.D. Jan 28, 2017 15:06
[2017-01-28] MEDS: CEFTRIAXONE 1 GM/50 ML (PMX) 50 ML IVPB SCH (15:21)
== END 2017-01-28 16:25 | disposition home health service (06) | DRG 871 ==
LOC: E/R 20:59 → ICU 01-17 00:20 → MS2 01-18 15:40
PROVIDERS: ADMIT Internal Medicine; ATTEND Internal Medicine
PROC: 0F9130Z Drainage of Right Lobe Liver with Drainage Device, Percutaneous Approach (ICD-10-PCS; 2017-01-17)
PROC: 02HV33Z Insertion of Infusion Device into Superior Vena Cava, Percutaneous Approach (ICD-10-PCS; principal; 2017-01-20)
DX: A40.8 Other streptococcal sepsis (principal); R65.21 Severe sepsis with septic shock; K75.0 Abscess of liver; N17.9 Acute kidney failure, unspecified; E87.2 Acidosis; D69.6 Thrombocytopenia, unspecified; E44.0 Moderate protein-calorie malnutrition; E83.42 Hypomagnesemia; E87.6 Hypokalemia; D64.9 Anemia, unspecified; Z68.25 Body mass index [BMI] 25.0-25.9, adult; E78.5 Hyperlipidemia, unspecified; R19.7 Diarrhea, unspecified; R73.03 Prediabetes
CPT/HCPCS: 36569; 71010; 74176; 74178; 74181; 76705; 76937; 77012; 80048; 80053; 80061; 80076; 80202; 81001; 81003; 82043; 82105; 82310; 83036; 83605; 83690; 83735; 83880; 84100; 84132; 84155; 84300; 84484; 85014; 85018; 85025; 85610; 85730; 86703; 86704; 86709; 86803; 87040; 87045; 87070; 87075; 87081; 87086; 87340; 87400; 88104; 88305; 93005; 93306; 93308; 94640; 94664; J1940; C1751; C9113; J0692; J0696; J2250; J2270; J2405; J2543; J3010; J3370; J3480; J7030; J7040; Q9967

== ENCOUNTER 2017-02-02 14:12 | Outpatient (CLI) | payer MEDICAID ==
[~2017-02-02] VITALS: Ht 152.4 cm; Wt 48.2 kg
[~2017-02-02 14:12] MED LIST changes: -ACET325T33 PO; +OMEG1CAP55 PO; -ONDA4TAB14 PO; +TRAM-40 PO
[2017-02-02 14:20] VITALS: BP 120/59; PULSE 92; RESP 16; Ht 152.4 cm; Wt 48.2 kg
--- NOTE | 2017-02-02 14:51 | PN ---
Date/Time of Note Date/Time of Note DATE: 02/02/17 TIME: 14:47 Outpatient Progress Note Chief Complaint Sepsis/hepatic abscess/renal insufficiency/anemia/hyperlipidemia HPI Sepsis/no fever chill, no nausea vomiting, no rash, no hypertension, Hepatic abscess/patient has liver abscess, patient had CT-guided drainage, no fever chill, patient is getting IV antibiotic, Renal insufficiency/no nausea vomiting, no pruritus, not on dialysis, Anemia/no hematemesis or melena, no ecchymoses bruises or bleeding, Hyperlipidemia/no xanthoma, on medication, no side effect of medication, Review of Systems Const: No Fever, no chills, no Wt. loss, no Fatigue, normal appetite, no diaphoresis. Eyes: No pain, no discharge, no redness, no visual change, no foreign body. ENT: No pain, no bleeding, no congestion, no sore throat, no dysphagia, no discharge or rhinitis. Lymph: No adenopathy, no tender nodes, no lymphedema. Resp: No SOB, no cough, no sputum, no wheezing, no chest pain. CV: No chest pain, no palpitaions, no BRADEN, no PND, no edema. GI: Normal appetite, no pain, no nausea, no vomiting, no diarrhea, no blood, no constipation. Minimal right flank discomfort, has a drainage, : No frequency, no urgency, no dysuria, no hematuria, no flank pain, no discharge, no bleeding. Musc: No bone/joint pain, no back pain, no neck pain, no knee pain, no restricted ROM. Skin: No rash, no skin lesions, no erythema, no laceration, no bruising, no pruritus. Neuro: No RAINES, no dizziness, no syncope, no seizure, no focal-weakness. Endo: No polyuria, no polydypsia, no dry-skin, no temp-intolerance. Psych: No hallucinations, no depression, no anxiety, no suicidal ideation. Ext: No edema, no pain, no ulcer, no weakness. Physical Exam General Appearance: A 41 year-old female who appears well-developed, well- nourished, in no acute distress. HEENT: Head normocephalic, atraumatic. Pupils equal, round, reactive to light and accommodate. Sclerae are no jaundice. Nasal turbinates pink without erythema or nasal discharge. Mucous membranes pink and moist without lesions. Oropharynx clear without any exudate or discharge. NECK: Supple. Trachea midline, No thyromegaly, No cervical lymphadenopathy, No mass, No carotid bruits, No JVD, Carotid pulses 2+ bilaterally. PULMONARY: Clear to auscultaion bilaterally, No retractions, Chest expansion symmetric bilaterally, no rales, no ronchi, no dulness on percussion. CARDIAC: Normal SI and S2, Regular rate and rythm, no murmur, gallop, or rub. GASTROINTESTINAL: Abdomen is soft, minimal right flank discomfort, patient has a drainage from the liver,, Non Rigid, No distention, Positive bowel sounds x4 quadrants, Liver normal. SKIN: Warm, dry, no rash, no bruise, no echmosis. EXTREMITIES: Bilateral lower extremities normal, no edema, no phlabitus, pulse palpable, no contracture. MUSCULOSKELETAL: Spine Normal, Non-tender, Normal range of motion, No swelling, no deformity, no clubbing, or cyanosis, the patient has no edema to bilateral lower extremities, dorsalis pedis pulses palpable bilaterally. NEUROLOGIC: The patient is awake, alert, oriented, responding to yes/no questions appropriately, moving all extremities, cranial nerve intact, normal strenght, normal power, normal coordination, normal gait. Allergies Coded Allergies: ibuprofen (Unverified Allergy, Intermediate, rash, 01/16/17) PMH Sepsis/hepatic abscess/renal insufficiency anemia/hyperlipidemia/elevated LFT and hyperbilirubinemia, Status post CT-guided drainage of hepatic abscess, Social Hx No smoking no drinking, Family Hx Noncontributory Assessment/Plan Impression Sepsis Hepatic abscess Renal insufficiency Anemia Hyper lipidemia Abnormal LFT Plan Patient has hepatic abscess drainage, patient has minimal drainage at present, no fever chill, patient feel comfortable, minimal discomfort in the right upper quadrant and flank, patient controlled pain wright with the medication, Patient still getting IV antibiotic, patient has no sign and symptom of sepsis, Patient has appointment with surgery next week, Patient to follow with the primary care physician, patient will need CBC CMP, next visit after the antibiotic is over Medications Home Meds Active Scripts Tramadol Hcl* (Ultram*) 50 Mg Tablet, 50 MG PO Q6H Y for PAIN, #20 TAB Prov:DELMY VILLATORO FAMILY PRACTITIONER 01/28/17 [place]-3/Dha/Epa/Fish Oil (FISH OIL EC 1,000 MG SOFTGEL) 1 Each Capsule.dr, 2000 MG PO BID for 30 Days Prov:DELMY VILLATORO NP 01/28/17 Discontinued Scripts Acetaminophen* (Tylenol*) 325 Mg Tablet, 2 TAB PO Q6 Y for PAIN AND OR ELEVATED TEMP, #20 TAB Prov:ROSA CASANOVA 01/13/17 DAE LORA MD Feb 02, 2017 14:51
== END 2017-02-02 16:48 | disposition home or self-care (01) ==
LOC: DCC 14:12
PROVIDERS: ATTEND Internal Medicine
DX: A41.9 Sepsis, unspecified organism (principal); D64.9 Anemia, unspecified; E78.5 Hyperlipidemia, unspecified; N28.9 Disorder of kidney and ureter, unspecified; K75.0 Abscess of liver; R94.5 Abnormal results of liver function studies
CPT/HCPCS: G0463

== ENCOUNTER 2017-02-07 09:47 | Outpatient (CLI) | payer MEDICAID ==
[~2017-02-07] VITALS: Ht 152.4 cm; Wt 48.9 kg
[2017-02-07 09:51] VITALS: BP 114/71; PULSE 82; RESP 16; Ht 152.4 cm; Wt 48.9 kg
--- NOTE | 2017-02-07 10:30 | PN ---
Date/Time of Note Date/Time of Note DATE: 02/07/17 TIME: 10:16 Assessment/Plan Assessment/Plan Assessment/Plan [facility] Progress Note Date of Service: 02/07/17 Today's Impression & Plan: Overall stable and continuing to improve. No indication for acute surgical intervention. Liver abscesses appear well controlled with the drains and no bile communication seen. Minimal output and ss. Need further imaging to assess effectiveness of treatment and timing of d/c drains. Also discussed access to healthcare issues and drain care. Nature of presenting problem: Moderate severity. With above assessment, I've recommended the following for today: 1. Liver CT, preferably at [facility] where drain interrogation and possible repositioning vs. discontinuation can take place 2. Keep PICC line until IV antimicrobials are done and then schedule for visit in our office to dc. Can also be done at PCP's office or hospital pending insurance approval 3. Educate about dressing change in the office 4. Give supplies (NS bottle and syringes) with instructions as to how to use 5. Will likely not need home health nurse after above education is done 6. F/u with us after above CT Thank you again for your great care of this very pleasant patient and wonderful family. If there are any questions, please feel free to call me at [phone]. Disclaimer: Inadvertent spelling or grammatical errors are likely due to EHR/ dictation software use and do not reflect on the overall quality of patient care. Updated Clinical Summary: The patient is a very pleasant 41-year-old lady with comorbidities including BMI 25.4 who presented through the emergency department at [facility] on 01/16/2017 with multiple hepatic abscesses, status post percutaneous drainage procedure 01/17/17 at [facility]. She was in septic shock, requiring intensive care unit admission and pressors. + gram-positive bacteremia. (alpha hemolytic Streptococcus species in the liver abscess fluid). + acute kidney injury, possibly secondary to hypotension. + prediabetes with hemoglobin A1c of 6.3. + dyslipidemia with high triglycerides and low HDL. CT scan of the abdomen and pelvis on 01/23/2017 that showed decrease in the size of the hepatic abscesses. Also increased right pleural effusion and new atelectasis versus airspace disease at the right lung base with a mild to moderate pericardial effusion. 2D echocardiogram done on 01/17/2017 that was negative for any pericardial effusion. Repeat 2D echocardiogram showed a trivial pericardial effusion. The patient had no evidence of any tamponade or any other hemodynamic compromise. + diarrhea (C. difficile negative). IV antibiotics through PICC line as inpatient and continued as outpatient with home health nurse with last date 02/09/2017. COMORBIDITIES: 1. BMI 25.4. 2. Possible prediabetes given the elevated hemoglobin A1c 3. Septic shock with two liver abscesses in the right lobe of the liver, status post percutaneous drainage procedure 01/17/17 at [facility]. Also acute kidney injury. 4. Pre-diabetic 5. Dyslipidemia (triglycerides) Subjective: No major events or complaints; no abd pain and under control with medications; no flank discomfort; no n/v/d; no sob or cp; + bowel activity; + activity; slight ss color change in one of the drains Objective: Vitals: See below Exam: GENERAL: On exam, the patient was waking with her sister in the hallway and appeared to be comfortable and in no acute distress. ABDOMEN: Soft, nontender and nondistended. Perc hepatic drains both ss without obvious bile and minimal outputs. Upper drain tubing with slight ss drainage in the tubing. There are no peritoneal signs or guarding. SKIN: Skin appears to be pink and feels warm to touch. NEUROLOGIC: Patient is awake, alert, and follows commands appropriately. RALF MG M.D. Feb 07, 2017 10:29
== END 2017-02-07 16:43 | disposition home or self-care (01) ==
LOC: HPC 09:47
PROVIDERS: ATTEND Transplant Surgery
DX: K75.0 Abscess of liver (principal); R73.03 Prediabetes; E78.5 Hyperlipidemia, unspecified
CPT/HCPCS: G0463

== ENCOUNTER → 2017-02-08 | Outpatient (CLI) | payer MEDICAID ==
[~2017-02-08] MED LIST changes: +IOHEXOL 100 ML ONE; +IOHEXOL 350MG/ML 50 ML BTL ONE; +SOD CHLORIDE 0.9% 100 ML ONE
[2017-02-08 09:22] LABS: CREATININE 0.53 mg/dl (0.44-1.00)
--- NOTE | 2017-02-08 15:07 | RADRPT ---
PROCEDURE: CT Abdomen and Pelvis with and without contrast. CLINICAL INDICATION: Abdominal and pelvic pain. History of liver abscesses. TECHNIQUE: CT scan of the abdomen and pelvis with and without contrast was performed. The patient was scanned both before and following the uncomplicated intravenous administration of 125 cc of Omni paque 350. Coronal and sagittal reformatted images were obtained from the axial source images. Imag es were reviewed on a high-resolution PACS workstation. Total exam DLP is 630.07 mGy-cm. CTDIvol i s 4.40 mGy. One or more of the following dose reduction techniques were used: Automated exposure co ntrol, adjustment of the mA and/or kV according to patient size, use of iterative reconstruction alfonzo hnique. COMPARISON: CT scan of the abdomen and pelvis dated 01/23/2017 FINDINGS: There is mild linear atelectasis at both lung bases, right worse than left. The lung bases are othe rwise normal. There is no pleural effusion. Previously noted small pericardial effusion is no long er present. The heart size is normal. The liver is normal in size and attenuation. As seen previously, there is an abscess superiorly in the posterior segment of the right hepatic lobe. This is now smaller measuring approximately 2 cm i n maximal diameter; prior was 7 cm. The abscess inferiorly in the right hepatic lobe now measures a pproximately 2.5 cm; prior was 4 cm. The pigtail drainage catheters present within the to abscesses are once again noted in satisfactory position. There is no new liver abscess or mass. The gallbladder and bile ducts are normal. The spleen is normal in size. There is no focal splenic lesion. Both adrenals are normal with no enlargement or mass. The pancreas is unremarkable with no mass or evidence of pancreatitis. Both kidneys demonstrate normal contrast enhancement. There is no renal mass or hydronephrosis. T here is no renal calculus or ureteral calculus. The abdominal aorta is not dilated. There is no retroperitoneal lymphadenopathy or mass. There is no pelvic lymphadenopathy or mass. The bladder and distal ureters are normal. The periappendiceal region is unremarkable with no evidence of appendicitis. The bowel and mesentery are normal. There is no free fluid or free gas. The osseous structures are unremarkable with no fracture or lytic lesion. IMPRESSION: 1. Mild atelectasis at the lung bases with right worse than left. 2. Previously noted right pleural effusion and pericardial effusion are no longer present. 3. The 2 abscess is in the right hepatic lobe are now smaller than seen previously. The 2 drainage catheters remain in satisfactory position. 4. Otherwise unremarkable CT scan of the abdomen and pelvis without and with contrast. RPTAT: QQ .Josue Jefferson MD, Date Time Electronically viewed and signed by .Josue Jefferson MD, on 02/08/2017 15:06 .R/
== END | disposition home or self-care (01) ==
LOC: LAB 08:12
PROVIDERS: ATTEND Transplant Surgery
DX: K75.0 Abscess of liver (principal)
CPT/HCPCS: 74178; 82565; 84520; 84703; Q9967; Z7610

== ENCOUNTER 2017-02-14 09:44 | Outpatient (CLI) | payer MEDICAID ==
[~2017-02-14] VITALS: Ht 149.9 cm; Wt 48.9 kg
[~2017-02-14 09:44] MED LIST changes: -IOHEXOL 100 ML ONE; -IOHEXOL 350MG/ML 50 ML BTL ONE; -SOD CHLORIDE 0.9% 100 ML ONE
[2017-02-14 09:55] VITALS: BP 125/64; PULSE 91; RESP 18; Ht 149.9 cm; Wt 48.9 kg
--- NOTE | 2017-02-14 18:00 | PN ---
Date/Time of Note Date/Time of Note DATE: 02/14/17 TIME: 17:53 Assessment/Plan Assessment/Plan Assessment/Plan [facility] Progress Note Date of Service: 02/14/17 Today's Impression & Plan: Overall stable and continuing to improve. No indication for acute surgical intervention. Liver abscesses appear well controlled with the drains and no bile communication seen. Much smaller on repeat CT scan. Minimal output and ss. After discussions and review with Dr. Jefferson from interventional radiology, we decided to discontinue the drains which I did at bedside in the office without any difficulties. Also discontinued the PICC line. Patient tolerated well. At this point, the patient can be followed symptomatically with primary care physician and to follow-up with us on an as-needed basis. Discussed with patient and answered all questions. Nature of presenting problem: Moderate severity. With above assessment, I've recommended the following for today: 1. Follow-up with primary care physician 2. Follow with us as needed Thank you again for your great care of this very pleasant patient and wonderful family. If there are any questions, please feel free to call me at [phone]. Disclaimer: Inadvertent spelling or grammatical errors are likely due to EHR/ dictation software use and do not reflect on the overall quality of patient care. Updated Clinical Summary: The patient is a very pleasant 41-year-old lady with comorbidities including BMI 25.4 who presented through the emergency department at [facility] on 01/16/2017 with multiple hepatic abscesses, status post percutaneous drainage procedure 01/17/17 at [facility]. She was in septic shock, requiring intensive care unit admission and pressors. + gram-positive bacteremia. (alpha hemolytic Streptococcus species in the liver abscess fluid). + acute kidney injury, possibly secondary to hypotension. + prediabetes with hemoglobin A1c of 6.3. + dyslipidemia with high triglycerides and low HDL. CT scan of the abdomen and pelvis on 01/23/2017 that showed decrease in the size of the hepatic abscesses. Also increased right pleural effusion and new atelectasis versus airspace disease at the right lung base with a mild to moderate pericardial effusion. 2D echocardiogram done on 01/17/2017 that was negative for any pericardial effusion. Repeat 2D echocardiogram showed a trivial pericardial effusion. The patient had no evidence of any tamponade or any other hemodynamic compromise. + diarrhea (C. difficile negative). IV antibiotics through PICC line as inpatient and continued as outpatient with home health nurse with last date 02/09/2017. Repeat CT 02/08/17 showed significant decrease in size of both liver abscss areas. Both drains and the PICC line d/cd in the office on 02/14/17. COMORBIDITIES: 1. BMI 25.4. 2. Possible prediabetes given the elevated hemoglobin A1c 3. Septic shock with two liver abscesses in the right lobe of the liver, status post percutaneous drainage procedure 01/17/17 at [facility]. Also acute kidney injury. 4. Pre-diabetic 5. Dyslipidemia (triglycerides) Subjective: No major events or complaints; no abd pain and under control with medications; no flank discomfort; no n/v/d; no sob or cp; + bowel activity; + activity; slight ss color change in one of the drains; repeat CT was done and showed decrease in size of both abscess areas in the liver. Objective: Vitals: See below Exam: GENERAL: On exam, the patient was waking with her sister in the hallway and appeared to be comfortable and in no acute distress. ABDOMEN: Soft, nontender and nondistended. Perc hepatic drains both ss without obvious bile and minimal outputs. Upper drain tubing with slight ss drainage in the tubing. There are no peritoneal signs or guarding. Both drains, as well as a PICC line were discontinued in the office. No complications. SKIN: Skin appears to be pink and feels warm to touch. NEUROLOGIC: Patient is awake, alert, and follows commands appropriately. Exam/Review of Systems Vital Signs Vitals Vital Signs Date Time Temp Pulse Resp B/P Pulse Ox O2 Delivery O2 Flow Rate FiO2 02/14/17 09:55 98.6 91 18 125/64 97 Room Air RALF MG M.D. Feb 14, 2017 18:00
== END 2017-02-14 16:09 | disposition home or self-care (01) ==
LOC: HPC 09:44
PROVIDERS: ATTEND Transplant Surgery
DX: K75.0 Abscess of liver (principal); E78.5 Hyperlipidemia, unspecified
CPT/HCPCS: G0463

== ENCOUNTER 2017-02-16 11:24 | Outpatient (CLI) | payer MEDICAID ==
[~2017-02-16] VITALS: Ht 149.9 cm; Wt 49.5 kg
[2017-02-16 11:26] VITALS: BP 122/71; PULSE 74; RESP 16; Ht 149.9 cm; Wt 49.5 kg
--- NOTE | 2017-02-16 12:41 | PN ---
Date/Time of Note Date/Time of Note DATE: 02/16/17 TIME: 12:38 Outpatient Progress Note Chief Complaint Hepatic abscess/anemia/hyperlipidemia HPI Hepatic abscess/patient was treated with hepatic abscess, patient finished antibiotic, patient fairly well, patient's PICC line removed from right arm, minimal discomfort, No nausea vomiting, no jaundice, no pain, no fever chill, Anemia/no fatigue, no weakness, no hematemesis melena or bruises or bleeding, Hyperlipidemia/no xanthoma, Review of Systems Const: No Fever, no chills, no Wt. loss, no Fatigue, normal appetite, no diaphoresis. Eyes: No pain, no discharge, no redness, no visual change, no foreign body. ENT: No pain, no bleeding, no congestion, no sore throat, no dysphagia, no discharge or rhinitis. Lymph: No adenopathy, no tender nodes, no lymphedema. Resp: No SOB, no cough, no sputum, no wheezing, no chest pain. CV: No chest pain, no palpitaions, no BRADEN, no PND, no edema. GI: Normal appetite, no pain, no nausea, no vomiting, no diarrhea, no blood, no constipation. : No frequency, no urgency, no dysuria, no hematuria, no flank pain, no discharge, no bleeding. Musc: Right upper arm at the site of PICC line slight discomfort,, no back pain , no neck pain, no knee pain, no restricted ROM. Skin: No rash, no skin lesions, no erythema, no laceration, no bruising, no pruritus. Neuro: No RAINES, no dizziness, no syncope, no seizure, no focal-weakness. Endo: No polyuria, no polydypsia, no dry-skin, no temp-intolerance. Psych: No hallucinations, no depression, no anxiety, no suicidal ideation. Ext: No edema, no pain, no ulcer, no weakness. Physical Exam Vital Signs Date Time Temp Pulse Resp B/P Pulse Ox O2 Delivery O2 Flow Rate FiO2 02/16/17 11:26 98.7 74 16 122/71 96 Room Air General Appearance: A 41 year-old female] who appears well-developed, well- nourished, in no acute distress. HEENT: Head normocephalic, atraumatic. Pupils equal, round, reactive to light and accommodate. Sclerae are no jaundice. Nasal turbinates pink without erythema or nasal discharge. Mucous membranes pink and moist without lesions. Oropharynx clear without any exudate or discharge. NECK: Supple. Trachea midline, No thyromegaly, No cervical lymphadenopathy, No mass, No carotid bruits, No JVD, Carotid pulses 2+ bilaterally. PULMONARY: Clear to auscultaion bilaterally, No retractions, Chest expansion symmetric bilaterally, no rales, no ronchi, no dulness on percussion. CARDIAC: Normal SI and S2, Regular rate and rythm, no murmur, gallop, or rub. GASTROINTESTINAL: Abdomen is soft, non-tender, Non Rigid, No distention, Positive bowel sounds x4 quadrants, Liver normal. SKIN: Warm, dry, no rash, no bruise, no echmosis. Minimal redness at PICC line site, slight discomfort, line was removed 2 days ago, EXTREMITIES: Bilateral lower extremities normal, no edema, no phlabitus, pulse palpable, no contracture. MUSCULOSKELETAL: Spine Normal, Non-tender, Normal range of motion, No swelling, no deformity, no clubbing, or cyanosis, the patient has no edema to bilateral lower extremities, dorsalis pedis pulses palpable bilaterally. NEUROLOGIC: The patient is awake, alert, oriented, responding to yes/no questions appropriately, moving all extremities, cranial nerve intact, normal strenght, normal power, normal coordination, normal gait. Allergies Coded Allergies: ibuprofen (Unverified Allergy, Intermediate, rash, 01/16/17) PMH No change Social Hx No change Family Hx No change Assessment/Plan Impression Hepatic abscess TREATED Anemia Hyperlipidemia Plan Patient completed antibiotic for hepatic abscess, patient feeling well, no fever chill, no abdominal pain, no fatigue, patient doing very well, Patient education done, patient to follow with the primary care physician, primary care physician to follow lab and further workup or treatment necessary, Discussed with the patient to follow with the primary care and infectious disease, Increase activity, Medications Home Meds Active Scripts Tramadol Hcl* (Ultram*) 50 Mg Tablet, 50 MG PO Q6H Y for PAIN, #20 TAB Prov:DELMY VILLATORO NP 01/28/17 [place]-3/Dha/Epa/Fish Oil (FISH OIL EC 1,000 MG SOFTGEL) 1 Each Capsule.dr, 2000 MG PO BID for 30 Days Prov:DELMY VILLATORO NP 01/28/17 DAE LORA MD Feb 16, 2017 12:41
== END 2017-02-16 16:26 | disposition home or self-care (01) ==
LOC: DCC 11:24
PROVIDERS: ATTEND Internal Medicine
DX: K75.0 Abscess of liver (principal); D64.9 Anemia, unspecified; E78.5 Hyperlipidemia, unspecified
CPT/HCPCS: G0463